=== PATIENT | male | born 1940 | race Caucasian/White ===

== ENCOUNTER 2019-05-06 11:27 | Inpatient (IN) | payer MEDICARE ==
[2019-05-06] MEDS ORDERED: Sodium Chloride 0.9% 10 ML Syringe FLUSH PRN (12:00)
--- NOTE | 2019-05-06 12:21 | EDM.PDOC ---
ED HPI GENERAL MEDICAL PROBLEM - General Chief Complaint: Gastrointestinal Problem Stated Complaint: [facility] Time Seen by Provider: 05/06/19 11:32 Source of Information: Reports: Patient, Family History Limitations: Reports: No Limitations - History of Present Illness INITIAL COMMENTS - FREE TEXT/NARRATIVE: Patient is a 78-year-old male who presents via [facility] with complaints of black emesis and incontinence of black stool this morning. Patient does have advanced dementia and lives with a caregiver in [place]. Patient's brother and auqsjp-mi-qpe are present in the ER and providing history on the patient as he is a poor historian. Patient nyozzb-tx-zvu states that the caregiver found him this morning in bed with dark colored emesis and incontinent stool. She states that last night the patient complained of "a stomachache ". Prior to this he was okay. A medication list is available for the 8 patient. He is on 81 mg daily of aspirin but no other blood thinners. Cesguf-hc-kco states that he has had a history of GI bleeds and have a bowel resection in the past. Patient's primary care is provided through [facility] at [facility]. The ymrkoy-mj-ydu did provide a copy of the patient's living will and advanced directives, however she does not have his past medical records with her. - Related Data Allergies Allergy/AdvReac Type Severity Reaction Status Date / Time No Known Allergies Allergy Verified 05/06/19 12:16 Home Meds: Home Meds Aspirin [Ecotrin EC] 81 mg PO DAILY 05/06/19 [History] Cholestyramine/Sucrose [Cholestyramine] 4 gm PO DAILY 05/06/19 [History] Donepezil HCl [Aricept] 10 mg PO QPM 05/06/19 [History] Insulin Glargine,Hum.Rec.Anlog [Toujeo Solostar] 20 units SUBCUT DAILY 05/06/19 [History] Levothyroxine [Synthroid] 50 mcg PO DAILY 05/06/19 [History] Midodrine 2.5 mg PO QPM 05/06/19 [History] Mirtazapine 15 mg PO QPM 05/06/19 [History] Multivit-Min/FA/Lycopen/Lutein [Centrum Silver Ultra Men's] 1 tab PO DAILY 05/06 [History] QUEtiapine [SEROquel] 100 mg PO QPM 05/06/19 [History] Turmeric Root Extract [Turmeric] 500 mg PO DAILY 05/06/19 [History] amLODIPine [Norvasc] 2.5 mg PO DAILY 05/06/19 [History] carBAMazepine [Carbamazepine] 100 mg PO BID 05/06/19 [History] carvediloL [Coreg] 12.5 mg PO BID 05/06/19 [History] ED ROS GENERAL - Review of Systems Review Of Systems: See Below Constitutional: Reports: No Symptoms HEENT: Reports: No Symptoms Respiratory: Reports: No Symptoms. Denies: Shortness of Breath Cardiovascular: Reports: No Symptoms. Denies: Chest Pain, Dyspnea on Exertion, Lightheadedness, Syncope Endocrine: Reports: No Symptoms GI/Abdominal: Reports: Hematemesis, Hematochezia, Stool Incontinence. Denies: Abdominal Pain : Reports: No Symptoms Musculoskeletal: Reports: No Symptoms Skin: Reports: No Symptoms Neurological: Reports: Confusion (at baseline). Denies: Dizziness, Syncope Psychiatric: Reports: No Symptoms Hematologic/Lymphatic: Reports: No Symptoms Immunologic: Reports: No Symptoms ED EXAM, GI/ABD - Physical Exam Exam: See Below Exam Limited By: Altered Mental Status (confusion r/t dementia) General Appearance: Alert, WD/WN, No Apparent Distress Head: Atraumatic, Normocephalic Respiratory/Chest: No Respiratory Distress, Lungs Clear, Normal Breath Sounds, No Accessory Muscle Use, Chest Non-Tender Cardiovascular: Normal Peripheral Pulses, Regular Rate, Rhythm, No Edema, No Murmur GI/Abdominal Exam: Soft, Non-Tender, No Distention, Abnormal Bowel Sounds ( hyperactive throughout). No: Distended, Guarding, Tender Rectal (Males) Exam: Black Stool, Heme + Stool Extremities: Other (Left great toe amputation well healed. pressure ulcer to tip of left 2nd toe and voral aspect of the left 3rd toe. No obvious signs of infection.) Neurological: Alert, Confused, Memory Loss Remote Events, Memory Loss Recent Events Psychiatric: Normal Affect, Normal Mood Skin Exam: Warm, Dry, Intact, Normal Color, No Rash Course - Vital Signs Last Recorded V/S: Last Vital Signs Temp 98.3 F 05/06/19 16:17 Pulse 71 05/06/19 16:17 Resp 13 05/06/19 16:17 BP 112/79 05/06/19 16:17 Pulse Ox 95 05/06/19 16:17 - Orders/Labs/Meds Orders: Active Orders 24 hr Category Date Time Status Chest 1V Frontal [CR] Stat Exams 05/06/19 13:30 Taken RED BLOOD CELLS LP [BBK] Stat Lab 05/06/19 11:55 Results TYPE AND SCREEN [BBK] Stat Lab 05/06/19 11:55 Results Sodium Chloride 0.9% [Normal Saline] 1,000 ml Med 05/06/19 12:30 Active IV ASDIRECTED Sodium Chloride 0.9% [Saline Flush] Med 05/06/19 12:00 Active 10 ml FLUSH ASDIRECTED PRN Peripheral IV Insertion Adult [OM.PC] Stat Oth 05/06/19 12:00 Ordered Transfuse Red Blood Cells [COMM] Stat Oth 05/06/19 12:22 Ordered Medication Orders Sodium Chloride (Normal Saline) 1,000 mls @ 150 mls/hr IV ASDIRECTED KASIE Last Admin: 05/06/19 12:38 Dose: 150 mls/hr Sodium Chloride (Saline Flush) 10 ml FLUSH ASDIRECTED PRN PRN Reason: Keep Vein Open Last Admin: 05/06/19 12:15 Dose: 10 ml Labs: Laboratory Tests 05/06/19 05/06/19 05/06/19 Range/Units 11:55 11:55 11:55 WBC 7.07 (4.23-9.07) K/mm3 RBC 2.26 L (4.63-6.08) M/mm3 Hgb 6.8 L* (13.7-17.5) gm/dl Hct 21.0 L (40.1-51.0) % MCV 92.9 H (79.0-92.2) fl MCH 30.1 (25.7-32.2) pg MCHC 32.4 (32.2-35.5) g/dl RDW Std Deviation 46.1 H (35.1-43.9) fL Plt Count 197 (163-337) K/mm3 MPV 9.2 L (9.4-12.3) fl Neut % (Auto) 90.8 H (34.0-67.9) % Lymph % (Auto) 4.5 L (21.8-53.1) % [place] % (Auto) 4.4 L (5.3-12.2) % Eos % (Auto) 0 L (0.8-7.0) Baso % (Auto) 0.0 L (0.1-1.2) % Neut # (Auto) 6.42 H (1.78-5.38) K/mm3 Lymph # (Auto) 0.32 L (1.32-3.57) K/mm3 [place] # (Auto) 0.31 (0.30-0.82) K/mm3 Eos # (Auto) 0.00 L (0.04-0.54) K/mm3 Baso # (Auto) 0.00 L (0.01-0.08) K/mm3 Manual Slide Review Abnormal smear Puncture Site ABG pH (7.35-7.45) ABG pCO2 (35.0-45.0) mmHg ABG pO2 (80.0-100.0) mmHg ABG HCO3 (22.0-26.0) meq/L ABG O2 Saturation (96.0-97.0) % ABG Base Excess (-2-2.0) Ming Test O2 Delivery Device Sodium 140 (136-145) mEq/L Potassium 4.8 (3.5-5.1) mEq/L Chloride 109 H (98-107) mEq/L Carbon Dioxide 16 L (21-32) mEq/L Anion Gap 19.8 H (5-15) BUN 90 H (7-18) mg/dL Creatinine 2.6 H (0.7-1.3) mg/dL Est Cr Clr Drug Dosing 22.29 mL/min Estimated GFR (MDRD) 24 (>60) mL/min BUN/Creatinine Ratio 34.6 H (14-18) Glucose 206 H (83-115) mg/dL Lactic Acid (0.4-2.0) mmol/L Calcium 7.8 L (8.5-10.1) mg/dL Magnesium (1.8-2.4) mg/dl Total Bilirubin 0.3 (0.2-1.0) mg/dL AST 46 H (15-37) U/L ALT 54 (16-63) U/L Alkaline Phosphatase 97 (46-116) U/L Creatine Kinase 410 H (39-308) U/L C-Reactive Protein 3.1 H* (<1.0) mg/dL Total Protein 5.7 L (6.4-8.2) g/dl Albumin 2.9 L (3.4-5.0) g/dl Globulin 2.8 gm/dL Albumin/Globulin Ratio 1.0 (1-2) Lipase 64 L (73-393) U/L Urine Color (Yellow) Urine Appearance (Clear) Urine pH (5.0-8.0) Ur Specific [place] (1.005-1.030) Urine Protein (Negative) Urine Glucose (UA) (Negative) Urine Ketones (Negative) Urine Occult Blood (Negative) Urine Nitrite (Negative) Urine Bilirubin (Negative) Urine Urobilinogen (0.2-1.0) Ur Leukocyte Esterase (Negative) Urine RBC (0-5) /hpf Urine WBC (0-5) /hpf Ur Epithelial Cells (0-5) /hpf Urine Bacteria (FEW) /hpf Hyaline Casts (0-5) /lpf Urine Mucus (FEW) /hpf Blood Type Gel Antibody Screen Crossmatch 05/06/19 05/06/19 05/06/19 Range/Units 11:55 11:55 12:10 WBC (4.23-9.07) K/mm3 RBC (4.63-6.08) M/mm3 Hgb (13.7-17.5) gm/dl Hct (40.1-51.0) % MCV (79.0-92.2) fl MCH (25.7-32.2) pg MCHC (32.2-35.5) g/dl RDW Std Deviation (35.1-43.9) fL Plt Count (163-337) K/mm3 MPV (9.4-12.3) fl Neut % (Auto) (34.0-67.9) % Lymph % (Auto) (21.8-53.1) % [place] % (Auto) (5.3-12.2) % Eos % (Auto) (0.8-7.0) Baso % (Auto) (0.1-1.2) % Neut # (Auto) (1.78-5.38) K/mm3 Lymph # (Auto) (1.32-3.57) K/mm3 [place] # (Auto) (0.30-0.82) K/mm3 Eos # (Auto) (0.04-0.54) K/mm3 Baso # (Auto) (0.01-0.08) K/mm3 Manual Slide Review Puncture Site ABG pH (7.35-7.45) ABG pCO2 (35.0-45.0) mmHg ABG pO2 (80.0-100.0) mmHg ABG HCO3 (22.0-26.0) meq/L ABG O2 Saturation (96.0-97.0) % ABG Base Excess (-2-2.0) Ming Test O2 Delivery Device Sodium (136-145) mEq/L Potassium (3.5-5.1) mEq/L Chloride (98-107) mEq/L Carbon Dioxide (21-32) mEq/L Anion Gap (5-15) BUN (7-18) mg/dL Creatinine (0.7-1.3) mg/dL Est Cr Clr Drug Dosing mL/min Estimated GFR (MDRD) (>60) mL/min BUN/Creatinine Ratio (14-18) Glucose (83-115) mg/dL Lactic Acid (0.4-2.0) mmol/L Calcium (8.5-10.1) mg/dL Magnesium 1.7 L (1.8-2.4) mg/dl Total Bilirubin (0.2-1.0) mg/dL AST (15-37) U/L ALT (16-63) U/L Alkaline Phosphatase (46-116) U/L Creatine Kinase (39-308) U/L C-Reactive Protein (<1.0) mg/dL Total Protein (6.4-8.2) g/dl Albumin (3.4-5.0) g/dl Globulin gm/dL Albumin/Globulin Ratio (1-2) Lipase (73-393) U/L Urine Color Yellow (Yellow) Urine Appearance Clear (Clear) Urine pH 5.5 (5.0-8.0) Ur Specific [place] 1.025 (1.005-1.030) Urine Protein Negative (Negative) Urine Glucose (UA) Negative (Negative) Urine Ketones Negative (Negative) Urine Occult Blood Negative (Negative) Urine Nitrite Negative (Negative) Urine Bilirubin Negative (Negative) Urine Urobilinogen 0.2 (0.2-1.0) Ur Leukocyte Esterase Negative (Negative) Urine RBC 0-5 (0-5) /hpf Urine WBC 0-5 (0-5) /hpf Ur Epithelial Cells 0-5 (0-5) /hpf Urine Bacteria Few (FEW) /hpf Hyaline Casts 0-5 (0-5) /lpf Urine Mucus Few (FEW) /hpf Blood Type A POSITIVE Gel Antibody Screen Negative Crossmatch See Detail 05/06/19 05/06/19 Range/Units 13:29 13:45 WBC (4.23-9.07) K/mm3 RBC (4.63-6.08) M/mm3 Hgb (13.7-17.5) gm/dl Hct (40.1-51.0) % MCV (79.0-92.2) fl MCH (25.7-32.2) pg MCHC (32.2-35.5) g/dl RDW Std Deviation (35.1-43.9) fL Plt Count (163-337) K/mm3 MPV (9.4-12.3) fl Neut % (Auto) (34.0-67.9) % Lymph % (Auto) (21.8-53.1) % [place] % (Auto) (5.3-12.2) % Eos % (Auto) (0.8-7.0) Baso % (Auto) (0.1-1.2) % Neut # (Auto) (1.78-5.38) K/mm3 Lymph # (Auto) (1.32-3.57) K/mm3 [place] # (Auto) (0.30-0.82) K/mm3 Eos # (Auto) (0.04-0.54) K/mm3 Baso # (Auto) (0.01-0.08) K/mm3 Manual Slide Review Puncture Site Lt radial ABG pH 7.32 L (7.35-7.45) ABG pCO2 23.6 L (35.0-45.0) mmHg ABG pO2 95.0 (80.0-100.0) mmHg ABG HCO3 11.7 L (22.0-26.0) meq/L ABG O2 Saturation 96.5 (96.0-97.0) % ABG Base Excess -13.2 L (-2-2.0) Ming Test Positive O2 Delivery Device Room air Sodium (136-145) mEq/L Potassium (3.5-5.1) mEq/L Chloride (98-107) mEq/L Carbon Dioxide (21-32) mEq/L Anion Gap (5-15) BUN (7-18) mg/dL Creatinine (0.7-1.3) mg/dL Est Cr Clr Drug Dosing mL/min Estimated GFR (MDRD) (>60) mL/min BUN/Creatinine Ratio (14-18) Glucose (83-115) mg/dL Lactic Acid 1.2 (0.4-2.0) mmol/L Calcium (8.5-10.1) mg/dL Magnesium (1.8-2.4) mg/dl Total Bilirubin (0.2-1.0) mg/dL AST (15-37) U/L ALT (16-63) U/L Alkaline Phosphatase (46-116) U/L Creatine Kinase (39-308) U/L C-Reactive Protein (<1.0) mg/dL Total Protein (6.4-8.2) g/dl Albumin (3.4-5.0) g/dl Globulin gm/dL Albumin/Globulin Ratio (1-2) Lipase (73-393) U/L Urine Color (Yellow) Urine Appearance (Clear) Urine pH (5.0-8.0) Ur Specific [place] (1.005-1.030) Urine Protein (Negative) Urine Glucose (UA) (Negative) Urine Ketones (Negative) Urine Occult Blood (Negative) Urine Nitrite (Negative) Urine Bilirubin (Negative) Urine Urobilinogen (0.2-1.0) Ur Leukocyte Esterase (Negative) Urine RBC (0-5) /hpf Urine WBC (0-5) /hpf Ur Epithelial Cells (0-5) /hpf Urine Bacteria (FEW) /hpf Hyaline Casts (0-5) /lpf Urine Mucus (FEW) /hpf Blood Type Gel Antibody Screen Crossmatch Meds: Medications Generic Name Dose Route Start Last Admin Trade Name Freq PRN Reason Stop Dose Admin Sodium Chloride 1,000 mls @ 150 mls/hr 05/06/19 12:30 05/06/19 12:38 Normal Saline IV 150 mls/hr ASDIRECTED KASIE Administration Sodium Chloride 10 ml 05/06/19 12:00 05/06/19 12:15 Saline Flush FLUSH 10 ml ASDIRECTED PRN Administration Keep Vein Open Discontinued Medications Generic Name Dose Route Start Last Admin Trade Name Suki PRN Reason Stop Dose Admin Ondansetron HCl 4 mg 05/06/19 12:23 05/06/19 12:38 Zofran IVPUSH 05/06/19 12:24 4 mg ONETIME ONE Administration Pantoprazole Sodium 80 mg 05/06/19 12:23 05/06/19 12:38 Protonix Iv IVPUSH 05/06/19 12:24 80 mg BOLUS ONE Administration - Re-Assessments/Exams Free Text/Narrative Re-Assessment/Exam: Patient is a 78-year-old male who presents with complaints of black emesis and incontinence of dark stool this morning. Patient is never been to this facility in the past so we do not have complete medical records for him. His brother, Edmundo, and his are present in the ER. Edmundo is the patient's designated medical power of finance attorney. The [id number] does state the patient has a history of GI bleeds in the past. We have contacted [facility] services and [facility] to request the patient's past medical records. On exam the patient is alert and responds to questioning, however is confused at baseline. He does have spots of dried dark emesis on his face and also has dried dark stool on his buttocks. Rectal exam was performed and no cold stool was obtained. This was grossly positive. Ordered a CBC CMP and type and screen for the patient. We'll start IV fluids of NS at 15 ml/hr and administer Zofran 4 mg IV as well as Protonix 80 mg IV push bolus. 05/06/19 12:34 Laboratory results thus far show a hemoglobin of 6.8. I did discuss with the patient and the power of finance attorney the need for a blood transfusion. They did consent to this. Have ordered 2 units packed RBCs to be transfused. I will contact the hospitalist, Dr. Mccarthy, to discuss admission to the hospital. 05/06/19 13:31 Dr. Mccarthy here to see pt. She request that I add a lactic acid, ABG, and a CXR. Pt will be admitted to [facility] in. Departure - Departure Time of Disposition: 13:30 Disposition: Admitted As Inpatient 65 Condition: Fair Clinical Impression: Gastrointestinal bleeding Qualifiers: GI bleed type/associated pathology: unspecified gastrointestinal hemorrhage type Qualified Code(s): K92.2 - Gastrointestinal hemorrhage, unspecified - Discharge Information *PRESCRIPTION DRUG MONITORING PROGRAM REVIEWED*: No *COPY OF PRESCRIPTION DRUG MONITORING REPORT IN PATIENT KAITY: No Sepsis Event Note - Evaluation Sepsis Screening Result: No Definite Risk - Focused Exam Vital Signs: Vital Signs Temp Temp Pulse Resp BP Pulse Ox 05/06/19 15:09 98.3 F 79 13 112/79 05/06/19 14:54 98.5 F 71 13 115/56 L 05/06/19 14:40 98.0 F 69 13 103/59 L 05/06/19 11:56 97.5 F 75 18 121/55 L 96 Date Exam was Performed: 05/06/19 Time Exam was Performed: 16:27 - My Orders Last 24 Hours: My Active Orders 05/06/19 11:55 RED BLOOD CELLS LP [BBK] Stat TYPE AND SCREEN [BBK] Stat 05/06/19 12:00 Sodium Chloride 0.9% [Saline Flush] 10 ml FLUSH ASDIRECTED PRN Peripheral IV Insertion Adult [OM.PC] Stat 05/06/19 12:22 Transfuse Red Blood Cells [COMM] Stat 05/06/19 12:30 Sodium Chloride 0.9% [Normal Saline] 1,000 ml IV ASDIRECTED 05/06/19 13:30 Chest 1V Frontal [CR] Stat - Assessment/Plan Last 24 Hours: My Active Orders 05/06/19 11:55 RED BLOOD CELLS LP [BBK] Stat TYPE AND SCREEN [BBK] Stat 05/06/19 12:00 Sodium Chloride 0.9% [Saline Flush] 10 ml FLUSH ASDIRECTED PRN Peripheral IV Insertion Adult [OM.PC] Stat 05/06/19 12:22 Transfuse Red Blood Cells [COMM] Stat 05/06/19 12:30 Sodium Chloride 0.9% [Normal Saline] 1,000 ml IV ASDIRECTED 05/06/19 13:30 Chest 1V Frontal [CR] Stat
[2019-05-06] MEDS ORDERED: Ondansetron 4 MG/2 ML SDV IVPUSH ONE (12:23)
[2019-05-06] MEDS ORDERED: Pantoprazole 40 MG Vial IVPUSH ONE (12:23)
[2019-05-06] MEDS: Sodium Chloride 0.9% 1,000 ML IV SCH ×2 (12:38→17:54)
--- NOTE | 2019-05-06 18:05 | PCM.HP.2 ---
H&P History of Present Illness - General Date of Service: 05/06/19 Admit Problem/Dx: Admission Diagnosis/Problem Admission Diagnosis/Problem Gastrointestinal hemorrhage - History of Present Illness Initial Comments - Free Text/Narative: Patient is a 78-year-old male who [facility] with complaints of black emesis and incontinence of black stool this morning. Patient does have advanced dementia and lives with a caregiver in [place]. Patient's brother and rikurb-sy-eum are present in the ER and providing history on the patient as he is a poor historian. Patient rhbdxs-is-lgz states that the caregiver found him this morning in bed with dark colored emesis and incontinent stool. She states that last night the patient complained of "a stomachache ". Prior to this he was okay. A medication list is available for the 8 patient. He is on 81 mg daily of aspirin but no other blood thinners. Klagwz-wn-mdh states that he has had a history of GI bleeds and have a bowel resection in the past. Patient's primary care is provided through [facility] at [facility]. The hvnvhr-to-lwi did provide a copy of the patient's living will and advanced directives, however she does not have his past medical records with her. - Related Data Allergies/Adverse Reactions: Allergies Allergy/AdvReac Type Severity Reaction Status Date / Time No Known Allergies Allergy Verified 05/06/19 12:16 Home Medications: Home Meds Aspirin [Ecotrin EC] 81 mg PO DAILY 05/06/19 [History] Cholestyramine/Sucrose [Cholestyramine] 4 gm PO DAILY 05/06/19 [History] Donepezil HCl [Aricept] 10 mg PO QPM 05/06/19 [History] Insulin Glargine,Hum.Rec.Anlog [[place] Solostar] 20 units SUBCUT DAILY 05/06/19 [History] Levothyroxine [Synthroid] 50 mcg PO DAILY 05/06/19 [History] Midodrine 2.5 mg PO QPM 05/06/19 [History] Mirtazapine 15 mg PO QPM 05/06/19 [History] Multivit-Min/FA/Lycopen/Lutein [Centrum Silver Ultra Men's] 1 tab PO DAILY 05/06 [History] QUEtiapine [SEROquel] 100 mg PO QPM 05/06/19 [History] Turmeric Root Extract [Turmeric] 500 mg PO DAILY 05/06/19 [History] amLODIPine [Norvasc] 5 mg PO DAILY 05/06/19 [History] carBAMazepine [Carbamazepine] 200 mg PO BID 05/06/19 [History] carvediloL [Coreg] 12.5 mg PO BID 05/06/19 [History] Past Medical History HEENT History: Reports: Impaired Vision Cardiovascular History: Reports: Heart Failure, High Cholesterol, Other (See Below) Other Cardiovascular History: low blood pressure Gastrointestinal History: Reports: GI Bleed Musculoskeletal History: Reports: Amputation Other Musculoskeletal History: Ribs couple weeks ago, L big toe amputated Neurological History: Reports: Other (See Below) Other Neuro History: dementia Psychiatric History: Reports: Dementia Endocrine/Metabolic History: Reports: Diabetes, Type II, Hypothyroidism - Past Surgical History HEENT Surgical History: Reports: Cataract Surgery GI Surgical History: Reports: Colonoscopy Other GI Surgeries/Procedures: bowel resection- 2009 Social & Family History - Family History Family Medical History: Noncontributory - Tobacco Use Smoking Status *Q: Never Smoker - Caffeine Use Caffeine Use: Reports: None - Recreational Drug Use Recreational Drug Use: No H&P Review of Systems - Review of Systems: Review Of Systems: Unable To Obtain Reason Not Obtained: AMS Exam - Exam Exam: See Below - Vital Signs Vital Signs: Last Vital Signs Temp 97.8 F 05/06/19 18:01 Pulse 67 05/06/19 18:01 Resp 12 05/06/19 18:01 BP 127/72 05/06/19 18:01 Pulse Ox 95 05/06/19 16:17 Weight: 72.575 kg - Exam Physical Exam Comments:: Exam Limited By: Altered Mental Status (confusion r/t dementia) General Appearance: Alert, WD/WN, No Apparent Distress Head: Atraumatic, Normocephalic Respiratory/Chest: No Respiratory Distress, Lungs Clear, Normal Breath Sounds, No Accessory Muscle Use, Chest Non-Tender Cardiovascular: Normal Peripheral Pulses, Regular Rate, Rhythm, No Edema, No Murmur GI/Abdominal Exam: Soft, Non-Tender, No Distention, Abnormal Bowel Sounds ( hyperactive throughout). No: Distended, Guarding, Tender Rectal (Males) Exam: Black Stool, Heme + Stool Extremities: Other (Left great toe amputation well healed. pressure ulcer to tip of left 2nd toe and voral aspect of the left 3rd toe. No obvious signs of infection.) Neurological: Alert, Confused, Memory Loss Remote Events, Memory Loss Recent Events Psychiatric: Normal Affect, Normal Mood Skin Exam: Warm, Dry, Intact, Normal Color, No Rash - Patient Data Result Diagrams: 05/06/19 21:25 05/06/19 11:55 Sepsis Event Note - Evaluation Sepsis Screening Result: No Definite Risk - Focused Exam Vital Signs: Vital Signs Temp Temp Pulse Resp BP Pulse Ox 05/06/19 18:01 97.8 F 67 12 127/72 05/06/19 17:45 97.8 F 67 12 127/72 05/06/19 16:17 98.3 F 71 13 112/79 95 05/06/19 15:09 98.3 F 79 13 112/79 05/06/19 14:54 98.5 F 71 13 115/56 L 05/06/19 14:40 98.0 F 69 13 103/59 L 05/06/19 11:56 97.5 F 75 18 121/55 L 96 Date Exam was Performed: 05/06/19 Time Exam was Performed: 22:46 - Problem List (1) Gastrointestinal bleeding SNOMED Code(s): 96869132 ICD Code: K92.2 - GASTROINTESTINAL HEMORRHAGE, UNSPECIFIED Status: Acute Current Visit: Yes Qualifiers: GI bleed type/associated pathology: unspecified gastrointestinal hemorrhage type Qualified Code(s): K92.2 - Gastrointestinal hemorrhage, unspecified (2) Chronic orthostatic hypotension SNOMED Code(s): 34123338 ICD Code: I95.1 - ORTHOSTATIC HYPOTENSION Status: Acute Current Visit: Yes (3) COPD (chronic obstructive pulmonary disease) SNOMED Code(s): 34838397 ICD Code: J44.9 - CHRONIC OBSTRUCTIVE PULMONARY DISEASE, UNSPECIFIED Status : Acute Current Visit: Yes (4) Dementia SNOMED Code(s): 55412184 ICD Code: F03.90 - UNSPECIFIED DEMENTIA WITHOUT BEHAVIORAL DISTURBANCE Status: Acute Current Visit: Yes (5) Former smoker SNOMED Code(s): 9593342 ICD Code: Z87.891 - PERSONAL HISTORY OF NICOTINE DEPENDENCE Status: Acute Current Visit: Yes (6) Hypertension SNOMED Code(s): 96051648 ICD Code: I10 - ESSENTIAL (PRIMARY) HYPERTENSION Status: Acute Current Visit: Yes (7) Hypothyroidism SNOMED Code(s): 33814587 ICD Code: E03.9 - HYPOTHYROIDISM, UNSPECIFIED Status: Acute Current Visit : Yes (8) MRSA colonization SNOMED Code(s): 361506233 ICD Code: Z22.322 - CARRIER OR SUSPECTED CARRIER OF METHICILLIN RESIS STAPH Status: Acute Current Visit: Yes (9) Mitral regurgitation SNOMED Code(s): 97359891 ICD Code: I34.0 - NONRHEUMATIC MITRAL (VALVE) INSUFFICIENCY Status: Acute Current Visit: Yes (10) Peripheral neuropathy SNOMED Code(s): 891009823 ICD Code: G62.9 - POLYNEUROPATHY, UNSPECIFIED Status: Acute Current Visit : Yes (11) Diabetes mellitus SNOMED Code(s): 76648318 ICD Code: E11.9 - TYPE 2 DIABETES MELLITUS WITHOUT COMPLICATIONS Status: Acute Current Visit: Yes Problem List Initiated/Reviewed/Updated: Yes Assessment/Plan Comment:: Gastrointestinal bleeding Previous episode 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 bowel resection Found with black emesis and BM in the AM by provider Hb 6.8 on admission 2 melena episodes in ER and 1 in floor PLAN - Transfuse 2u PRBC - Trend Hb q4 in pediatric tubes - Monitor hemodynamics - LR at 50ml/hr - Pantoprazole 40mh IV Q12h - NPO for now except for ice chips and meds - No pharmacologic DVT prophylaxis Chronic orthostatic hypotension BP on admission stable Home midodrine Unclear why he is on amlodipine as well PLAN - Hold amlodipine and discontinue - Continue home midodrine - Ambulation with assistance - Bed alarm Diabetes mellitus, unknown HbA1c Peripheral neuropathy Insulin dependent at home Unknown home trend HbA1c reported less than 7, if so patient is at goal and does not need insulin, will repeat during admission for discharge recommendations PLAN - Repeat HbA1c - Accuchecks q6h while npo - Hypoglycemia protocol COPD (chronic obstructive pulmonary disease) Former smoker Smoked for 44 years, quit 08/2017 No acute issues PLAN - Monitor oxygenation during admission Hypothyroidism No acute issues PLAN - Continue home medications Dementia, unknown FAST score Home donepezil, seroquel and carbamazepine PLAN - Continue home meds - Delirium precautions - Let me sleep protocol PROPHYLAXIS DVT- TEDs, pharmacologic contraindicated due to active bleed GI- Pantoprazole 40mg IV Q12H CODE STATUS: DNR/DNI DISPOSITION: Patient will be admitted to medical floor for transfusion and monitorization. If Hb continues to drop will consult surgery for endoscopic procedure. Lives at home and has a live-in provider. - Mortality Measure Prognosis:: Good (all cause 1 year mortality 34% as per eprognosis score)
[2019-05-06] MEDS ORDERED: Ondansetron 4 MG Tab.DIS PO PRN (21:05)
[2019-05-06] MEDS ORDERED: Ondansetron 4 MG/2 ML SDV IV PRN (21:05)
[2019-05-06] MEDS ORDERED: Lactated Ringers 1,000 ML IV SCH ×2 (21:15)
[2019-05-06] MEDS: Mirtazapine 15 MG Tab PO SCH (22:41)
[2019-05-06] MEDS: Carvedilol 3.125 MG Tab PO SCH (22:41)
[2019-05-06] MEDS: QUEtiapine 100 MG Tab PO SCH (22:41)
[2019-05-07] MEDS: Carvedilol 3.125 MG Tab PO SCH ×2 (06:58→17:11)
[2019-05-07] MEDS: Pantoprazole 40 MG Vial IV SCH ×2 (08:02→20:58)
[2019-05-07] MEDS: carBAMazepine 200 MG Tab PO SCH ×2 (08:02→20:58)
[2019-05-07] MEDS ORDERED: Carvedilol 12.5 MG Tab PO SCH (09:00)
[2019-05-07] MEDS ORDERED: Magnesium Sulfate/Water 2 GM in Premix Bag 1 BAG IV ONE (10:30)
--- NOTE | 2019-05-07 12:58 | PCM.PN ---
- General Info Date of Service: 05/07/19 Subjective Update: Tolerating diet 1 dark BM Slept ok No pain or other complaints - Patient Data Vitals - Most Recent: Last Vital Signs Temp 97.9 F 05/07/19 05:30 Pulse 82 05/07/19 06:58 Resp 16 05/07/19 05:30 BP 108/68 05/07/19 06:58 Pulse Ox 99 05/07/19 05:30 Weight - Most Recent: 72.575 kg - Exam General: Alert, Oriented, Cooperative, No Acute Distress HEENT: Pupils Equal, Pupils Reactive, EOMI, Mucous Membr. Moist/[place] Neck: Supple, Trachea Midline, No JVD, No Thyromegaly, +2 Carotid Pulse wo Bruit. No: Lymphadenopathy Lungs: Clear to Auscultation, Normal Respiratory Effort, Crackles. No: Rales, Rhonchi, Wheezing Cardiovascular: Regular Rate, Regular Rhythm, No Murmurs GI/Abdominal Exam: Normal Bowel Sounds, Soft, Non-Tender, No Organomegaly Back Exam: Normal Inspection. No: CVA Tenderness (L), CVA Tenderness (R) Extremities: Normal Inspection, Normal Range of Motion, Normal Capillary Refill Skin: Warm Neurological: No New Focal Deficit Psy/Mental Status: Alert Sepsis Event Note - Evaluation Sepsis Screening Result: No Definite Risk - Focused Exam Vital Signs: Vital Signs Temp Temp Pulse Pulse Resp BP BP 05/07/19 06:58 82 108/68 05/07/19 05:30 97.9 F 82 16 108/68 05/07/19 01:11 98.6 F 83 14 96/63 Pulse Ox 05/07/19 06:58 05/07/19 05:30 99 05/07/19 01:11 97 Date Exam was Performed: 05/08/19 Time Exam was Performed: 09:01 - Problem List & Annotations (1) Gastrointestinal bleeding SNOMED Code(s): 83710510 Code(s): K92.2 - GASTROINTESTINAL HEMORRHAGE, UNSPECIFIED Status: Acute Current Visit: Yes Qualifiers: GI bleed type/associated pathology: unspecified gastrointestinal hemorrhage type Qualified Code(s): K92.2 - Gastrointestinal hemorrhage, unspecified (2) Chronic orthostatic hypotension SNOMED Code(s): 05908926 Code(s): I95.1 - ORTHOSTATIC HYPOTENSION Status: Acute Current Visit: Yes (3) COPD (chronic obstructive pulmonary disease) SNOMED Code(s): 47239430 Code(s): J44.9 - CHRONIC OBSTRUCTIVE PULMONARY DISEASE, UNSPECIFIED Status : Acute Current Visit: Yes (4) Dementia SNOMED Code(s): 65566915 Code(s): F03.90 - UNSPECIFIED DEMENTIA WITHOUT BEHAVIORAL DISTURBANCE Status: Acute Current Visit: Yes (5) Former smoker SNOMED Code(s): 1323215 Code(s): Z87.891 - PERSONAL HISTORY OF NICOTINE DEPENDENCE Status: Acute Current Visit: Yes (6) Hypertension SNOMED Code(s): 64765121 Code(s): I10 - ESSENTIAL (PRIMARY) HYPERTENSION Status: Acute Current Visit: Yes (7) Hypothyroidism SNOMED Code(s): 19341849 Code(s): E03.9 - HYPOTHYROIDISM, UNSPECIFIED Status: Acute Current Visit : Yes (8) MRSA colonization SNOMED Code(s): 781376191 Code(s): Z22.322 - CARRIER OR SUSPECTED CARRIER OF METHICILLIN RESIS STAPH Status: Acute Current Visit: Yes (9) Mitral regurgitation SNOMED Code(s): 41513126 Code(s): I34.0 - NONRHEUMATIC MITRAL (VALVE) INSUFFICIENCY Status: Acute Current Visit: Yes (10) Peripheral neuropathy SNOMED Code(s): 352517396 Code(s): G62.9 - POLYNEUROPATHY, UNSPECIFIED Status: Acute Current Visit : Yes (11) Diabetes mellitus SNOMED Code(s): 78932331 Code(s): E11.9 - TYPE 2 DIABETES MELLITUS WITHOUT COMPLICATIONS Status: Acute Current Visit: Yes - Problem List Review Problem List Initiated/Reviewed/Updated: Yes - Plan Plan:: Gastrointestinal bleeding Previous episode 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 bowel resection Found with black emesis and BM in the AM by provider Hb 6.8 on admission-->2 melena episodes in ER and 1 in floor--> transfused 2u PRBC-->Repeat Hb stable PLAN - Monitor hemodynamics - Discontinue LR - Pantoprazole 40mh IV Q12h - No pharmacologic DVT prophylaxis Chronic orthostatic hypotension BP on admission stable Home midodrine Unclear why he is on amlodipine as well PLAN - Hold amlodipine and discontinue - Continue home midodrine - Ambulation with assistance - Bed alarm Diabetes mellitus, unknown HbA1c Peripheral neuropathy Insulin dependent at home Unknown home trend HbA1c reported less than 7, if so patient is at goal and does not need insulin, will repeat during admission for discharge recommendations PLAN - Repeat HbA1c - Accuchecks q6h while npo - Hypoglycemia protocol COPD (chronic obstructive pulmonary disease) Former smoker Smoked for 44 years, quit 08/2017 No acute issues PLAN - Monitor oxygenation during admission Hypothyroidism No acute issues PLAN - Continue home medications Dementia, unknown FAST score Home donepezil, seroquel and carbamazepine PLAN - Continue home meds - Delirium precautions - Let me sleep protocol PROPHYLAXIS DVT- TEDs, pharmacologic contraindicated due to active bleed GI- Pantoprazole 40mg IV Q12H CODE STATUS: DNR/DNI DISPOSITION: Admitted to medical floor for hemodynamic monitorization, transfused 2u PRBC and Hb stable after transfusion./ Still having dark and tarry stools but Hb is stable. No need for endoscopic procedure at this time, will need one as an outpatient. Lives at home and has a live-in provider.
[2019-05-07] MEDS: QUEtiapine 100 MG Tab PO SCH (17:11)
[2019-05-07] MEDS ORDERED: QUEtiapine 100 MG Tab PO SCH (18:00)
[2019-05-07] MEDS ORDERED: Midodrine 5 MG Tab PO SCH (18:00)
[2019-05-07] MEDS: Mirtazapine 15 MG Tab PO SCH (20:58)
[2019-05-07] MEDS ORDERED: Mirtazapine 15 MG Tab PO SCH (21:00)
[2019-05-08] MEDS: Carvedilol 3.125 MG Tab PO SCH (07:04)
[2019-05-08] MEDS: carBAMazepine 200 MG Tab PO SCH (08:33)
[2019-05-08] MEDS: Pantoprazole 40 MG Vial IV SCH (08:33)
[2019-05-08 10:36] LABS: HEMOGLOBIN A1C 5.9 % (4.50-6.20)
--- NOTE | 2019-05-08 10:50 | CR ---
Chest: Portable view of the chest was obtained. Comparison: No prior chest imaging is available. Heart size is felt to be at the upper limits of normal. Tortuous thoracic aorta is seen. Lungs are clear with no acute parenchymal change. Bony structures are grossly intact. Impression: 1. Nothing acute is appreciated on portable chest x-ray. Diagnostic code #2 This report was dictated in [place] Standard Time
--- NOTE | 2019-05-08 17:22 | PCM.DCSUM1 ---
Discharge Summary - Hospital Course HPI Initial Comments: Patient is a 78-year-old male who presents via [facility] with complaints of black emesis and incontinence of black stool this morning. Patient does have advanced dementia and lives with a caregiver in [place]. Patient's brother and [id number] are present in the ER and providing history on the patient as he is a poor historian. Patient [id number] states that the caregiver found him this morning in bed with dark colored emesis and incontinent stool. She states that last night the patient complained of "a stomachache ". Prior to this he was okay. A medication list is available for the 8 patient. He is on 81 mg daily of aspirin but no other blood thinners. [id number] states that he has had a history of GI bleeds and have a bowel resection in the past. Patient's primary care is provided through [facility]. The [id number] did provide a copy of the patient's living will and advanced directives, however she does not have his past medical records with her. - Discharge Data Discharge Date: 05/08/19 Discharge Disposition: Home, Self-Care 01 Condition: Good - Referral to Home Health Primary Care Physician: Xochilt Steele PA-C - Discharge Diagnosis/Problem(s) (1) Gastrointestinal bleeding SNOMED Code(s): 44599041 ICD Code: K92.2 - GASTROINTESTINAL HEMORRHAGE, UNSPECIFIED Status: Acute Qualifiers: GI bleed type/associated pathology: unspecified gastrointestinal hemorrhage type Qualified Code(s): K92.2 - Gastrointestinal hemorrhage, unspecified (2) Chronic orthostatic hypotension SNOMED Code(s): 47571081 ICD Code: I95.1 - ORTHOSTATIC HYPOTENSION Status: Acute (3) COPD (chronic obstructive pulmonary disease) SNOMED Code(s): 65993007 ICD Code: J44.9 - CHRONIC OBSTRUCTIVE PULMONARY DISEASE, UNSPECIFIED Status : Acute (4) Dementia SNOMED Code(s): 38806906 ICD Code: F03.90 - UNSPECIFIED DEMENTIA WITHOUT BEHAVIORAL DISTURBANCE Status: Acute (5) Former smoker SNOMED Code(s): 6739253 ICD Code: Z87.891 - PERSONAL HISTORY OF NICOTINE DEPENDENCE Status: Acute (6) Hypertension SNOMED Code(s): 47068457 ICD Code: I10 - ESSENTIAL (PRIMARY) HYPERTENSION Status: Acute (7) Hypothyroidism SNOMED Code(s): 45749324 ICD Code: E03.9 - HYPOTHYROIDISM, UNSPECIFIED Status: Acute (8) MRSA colonization SNOMED Code(s): 731375932 ICD Code: Z22.322 - CARRIER OR SUSPECTED CARRIER OF METHICILLIN RESIS STAPH Status: Acute (9) Mitral regurgitation SNOMED Code(s): 12414275 ICD Code: I34.0 - NONRHEUMATIC MITRAL (VALVE) INSUFFICIENCY Status: Acute (10) Peripheral neuropathy SNOMED Code(s): 951227130 ICD Code: G62.9 - POLYNEUROPATHY, UNSPECIFIED Status: Acute (11) Diabetes mellitus SNOMED Code(s): 55795123 ICD Code: E11.9 - TYPE 2 DIABETES MELLITUS WITHOUT COMPLICATIONS Status: Acute - Patient Summary/Data Consults: Consultations 05/08/19 11:16 Consult to Occupational Therapy [OT Evaluation and Treatment] [CONS] Routine PT Evaluation and Treatment [CONS] Routine Hospital Course: Gastrointestinal bleeding Previous episode 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 bowel resection Found with black emesis and BM in the AM by provider Hb 6.8 on admission-->2 melena episodes in ER and 1 in floor--> transfused 2u PRBC-->Repeat Hb stable x3 Discharged on Pantoprazole to follow up with GI specialist Chronic orthostatic hypotension BP on admission stable Discontinued BP meds and discharged him only on midodrine and low dose carvedilol - Patient Instructions Diet: Usual Diet as Tolerated Activity: As Tolerated - Discharge Plan *PRESCRIPTION DRUG MONITORING PROGRAM REVIEWED*: No *COPY OF PRESCRIPTION DRUG MONITORING REPORT IN PATIENT KAITY: No Prescriptions/Med Rec: carvediloL [Coreg] 3.125 mg PO DAILY #30 tablet Pantoprazole Sodium 40 mg PO BID #60 tablet. Home Medications: Home Meds Aspirin [Ecotrin EC] 81 mg PO DAILY 05/06/19 [History] Cholestyramine/Sucrose [Cholestyramine] 4 gm PO DAILY 05/06/19 [History] Donepezil HCl [Aricept] 10 mg PO QPM 05/06/19 [History] Levothyroxine [Synthroid] 50 mcg PO DAILY 05/06/19 [History] Midodrine 2.5 mg PO QPM 05/06/19 [History] Mirtazapine 15 mg PO QPM 05/06/19 [History] Multivit-Min/FA/Lycopen/Lutein [Centrum Silver Ultra Men's] 1 tab PO DAILY 05/06 [History] QUEtiapine [SEROquel] 100 mg PO QPM 05/06/19 [History] Turmeric Root Extract [Turmeric] 500 mg PO DAILY 05/06/19 [History] carBAMazepine [Carbamazepine] 200 mg PO BID 05/06/19 [History] Pantoprazole Sodium 40 mg PO BID #60 tablet. 05/08/19 [Rx] carvediloL [Coreg] 3.125 mg PO DAILY #30 tablet 05/08/19 [Rx] Patient Handouts: Gastrointestinal Bleeding, [id number] Referrals: Xochilt Steele PA-C [Primary Care Provider] - 05/12/19 9:00 am (Please follow up with Xochilt Steele PA-C on May 12 at 9:00 am at [facility]. ) - Discharge Summary/Plan Comment DC Time >30 min.: Yes - General Info Date of Service: 05/08/19 Subjective Update: Slept ok Tolerating diet Ambulating to and from restroom - Patient Data Vitals - Most Recent: Last Vital Signs Temp 97.3 F 05/08/19 11:46 Pulse 61 05/08/19 11:47 Resp 20 05/08/19 11:46 BP 142/73 H 05/08/19 11:46 Pulse Ox 100 05/08/19 11:47 Weight - Most Recent: 72.575 kg I&O - Last 24 hours: Intake & Output 05/08/19 05/08/19 05/08/19 06:59 14:59 22:59 Intake Total 450 600 Output Total 975 Balance -525 600 Lab Results - Last 24 hrs: Laboratory Results - last 24 hr 05/07/19 05/07/19 05/08/19 Range/Units 16:54 20:59 05:15 WBC 4.59 (4.23-9.07) K/mm3 RBC 2.62 L (4.63-6.08) M/mm3 Hgb 7.9 L (13.7-17.5) gm/dl Hct 24.5 L (40.1-51.0) % MCV 93.5 H (79.0-92.2) fl MCH 30.2 (25.7-32.2) pg MCHC 32.2 (32.2-35.5) g/dl RDW Std Deviation 50.3 H (35.1-43.9) fL Plt Count 141 L (163-337) K/mm3 MPV 9.1 L (9.4-12.3) fl Sodium (136-145) mEq/L Potassium (3.5-5.1) mEq/L Chloride (98-107) mEq/L Carbon Dioxide (21-32) mEq/L Anion Gap (5-15) BUN (7-18) mg/dL Creatinine (0.7-1.3) mg/dL Est Cr Clr Drug Dosing mL/min Estimated GFR (MDRD) (>60) mL/min BUN/Creatinine Ratio (14-18) Glucose (83-115) mg/dL POC Glucose 169 H 147 H (83-110) mg/dL Hemoglobin A1c (4.50-6.20) % Calcium (8.5-10.1) mg/dL Magnesium (1.8-2.4) mg/dl 05/08/19 05/08/19 05/08/19 Range/Units 05:15 05:15 07:12 WBC (4.23-9.07) K/mm3 RBC (4.63-6.08) M/mm3 Hgb (13.7-17.5) gm/dl Hct (40.1-51.0) % MCV (79.0-92.2) fl MCH (25.7-32.2) pg MCHC (32.2-35.5) g/dl RDW Std Deviation (35.1-43.9) fL Plt Count (163-337) K/mm3 MPV (9.4-12.3) fl Sodium 142 (136-145) mEq/L Potassium 3.6 (3.5-5.1) mEq/L Chloride 112 H (98-107) mEq/L Carbon Dioxide 20 L (21-32) mEq/L Anion Gap 13.6 (5-15) BUN 45 H D (7-18) mg/dL Creatinine 1.6 H (0.7-1.3) mg/dL Est Cr Clr Drug Dosing 36.22 mL/min Estimated GFR (MDRD) 42 (>60) mL/min BUN/Creatinine Ratio 28.1 H (14-18) Glucose 159 H (83-115) mg/dL POC Glucose 172 H (83-110) mg/dL Hemoglobin A1c 5.90 (4.50-6.20) % Calcium 7.7 L (8.5-10.1) mg/dL Magnesium 1.9 (1.8-2.4) mg/dl 05/08/19 Range/Units 10:30 WBC (4.23-9.07) K/mm3 RBC (4.63-6.08) M/mm3 Hgb 8.9 L (13.7-17.5) gm/dl Hct 27.5 L (40.1-51.0) % MCV (79.0-92.2) fl MCH (25.7-32.2) pg MCHC (32.2-35.5) g/dl RDW Std Deviation (35.1-43.9) fL Plt Count (163-337) K/mm3 MPV (9.4-12.3) fl Sodium (136-145) mEq/L Potassium (3.5-5.1) mEq/L Chloride (98-107) mEq/L Carbon Dioxide (21-32) mEq/L Anion Gap (5-15) BUN (7-18) mg/dL Creatinine (0.7-1.3) mg/dL Est Cr Clr Drug Dosing mL/min Estimated GFR (MDRD) (>60) mL/min BUN/Creatinine Ratio (14-18) Glucose (83-115) mg/dL POC Glucose (83-110) mg/dL Hemoglobin A1c (4.50-6.20) % Calcium (8.5-10.1) mg/dL Magnesium (1.8-2.4) mg/dl SANDRA Results - Last 24 hrs: Microbiology 05/08/19 09:09 Helicobacter pylori Antigen - Final Stool / Feces NEGATIVE H. PYLORI AG REFERENCE RANGE: NEGATIVE Med Orders - Current: Current Medications Carbamazepine (Tegretol Tab) 200 mg PO BID [facility] Last Admin: 05/08/19 08:33 Dose: 200 mg Carvedilol (Coreg) 3.125 mg PO BIDMEALS [facility] Last Admin: 05/08/19 07:04 Dose: 3.125 mg Midodrine (Midodrine) 2.5 mg PO QPM [facility] Last Admin: 05/07/19 17:10 Dose: 2.5 mg Mirtazapine (Remeron) 15 mg PO BEDTIME [facility] Last Admin: 05/07/19 20:58 Dose: 15 mg Ondansetron HCl (Zofran Odt) 4 mg PO Q6H PRN PRN Reason: nausea, able to take PO Ondansetron HCl (Zofran) 4 mg IV Q6H PRN PRN Reason: Nausea/Vomiting Pantoprazole Sodium (Protonix Iv) 40 mg IV Q12HR [facility] Last Admin: 05/08/19 08:33 Dose: 40 mg Quetiapine Fumarate (Seroquel) 100 mg PO QPM [facility] Last Admin: 05/07/19 17:11 Dose: 100 mg Sodium Chloride (Saline Flush) 10 ml FLUSH ASDIRECTED PRN PRN Reason: Keep Vein Open Last Admin: 05/06/19 12:15 Dose: 10 ml Discontinued Medications Carvedilol (Coreg) 3.25 mg PO BID [facility] Sodium Chloride (Normal Saline) 1,000 mls @ 150 mls/hr IV ASDIRECTED [facility] Last Admin: 05/06/19 17:54 Dose: 150 mls/hr Lactated Ringer's (Ringers, Lactated) 1,000 mls @ 50 mls/hr IV ASDIRECTED [facility] Last Admin: 05/06/19 21:32 Dose: 50 mls/hr Magnesium Sulfate 2 gm/ Premix 50 mls @ 25 mls/hr IV ONETIME ONE Stop: 05/07/19 12:29 Last Admin: 05/07/19 11:07 Dose: 25 mls/hr Mirtazapine (Remeron) 15 mg PO BEDTIME [facility] Ondansetron HCl (Zofran) 4 mg IVPUSH ONETIME ONE Stop: 05/06/19 12:24 Last Admin: 05/06/19 12:38 Dose: 4 mg Pantoprazole Sodium (Protonix Iv) 80 mg IVPUSH BOLUS ONE Stop: 05/06/19 12:24 Last Admin: 05/06/19 12:38 Dose: 80 mg Quetiapine Fumarate (Seroquel) 100 mg PO QPM [facility]ASIE - Exam Physical Findings Comments:: General: Alert, Oriented, Cooperative, No Acute Distress HEENT: Pupils Equal, Pupils Reactive, EOMI, Mucous Membr. Moist/[place] Neck: Supple, Trachea Midline, No JVD, No Thyromegaly, +2 Carotid Pulse wo Bruit. No: Lymphadenopathy Lungs: Clear to Auscultation, Normal Respiratory Effort, Crackles. No: Rales, Rhonchi, Wheezing Cardiovascular: Regular Rate, Regular Rhythm, No Murmurs GI/Abdominal Exam: Normal Bowel Sounds, Soft, Non-Tender, No Organomegaly Back Exam: Normal Inspection. No: CVA Tenderness (L), CVA Tenderness (R) Extremities: Normal Inspection, Normal Range of Motion, Normal Capillary Refill Skin: Warm Neurological: No New Focal Deficit Psy/Mental Status: Alert
== END 2019-05-08 15:06 | disposition home or self-care (01) | DRG 812 ==
LOC: JD.ED 11:27 → JD.MS 15:22
PROVIDERS: ADMIT Internal Medicine; ATTEND Internal Medicine
PROC: 30233N1 Transfusion of Nonautologous Red Blood Cells into Peripheral Vein, Percutaneous Approach (ICD-10-PCS; principal; 2019-05-06)
DX: K92.1 Melena (principal); K92.0 Hematemesis; Z87.19 Personal history of other diseases of the digestive system; D62 Acute posthemorrhagic anemia; K92.2 Gastrointestinal hemorrhage, unspecified; I95.1 Orthostatic hypotension; J44.9 Chronic obstructive pulmonary disease, unspecified; F03.90 Unspecified dementia, unspecified severity, without behavioral disturbance, psychotic disturbance, mood disturbance, and anxiety; E03.9 Hypothyroidism, unspecified; Z66 Do not resuscitate; I34.0 Nonrheumatic mitral (valve) insufficiency; G62.9 Polyneuropathy, unspecified; E11.9 Type 2 diabetes mellitus without complications; Z90.49 Acquired absence of other specified parts of digestive tract; Z79.890 Hormone replacement therapy; Z79.4 Long term (current) use of insulin; Z79.899 Other long term (current) drug therapy; Z87.891 Personal history of nicotine dependence; Z22.322 Carrier or suspected carrier of Methicillin resistant Staphylococcus aureus; Z79.82 Long term (current) use of aspirin
CPT/HCPCS: 36415; 36430; 36600; 71045; 80053; 81001; 82550; 82803; 83605; 83690; 83735; 85025; 86140; 86850; 86900; 86901; 86922; C9113; J2405; J7030; P9016; 80048; 82962; 83036; 84100; 85014; 85018; 85027; 87338; 96361; 96374; 96375; 97165-GO; 97530-GO; 99222; 99231; 99239; 99283; 99284-25; A9270-GY; J3475; J7120

== ENCOUNTER 2019-06-11 15:10 | Inpatient (IN) | payer MEDICARE, OTHER ==
[2019-06-11] MEDS ORDERED: Sodium Chloride 0.9% 10 ML Syringe FLUSH PRN (15:27)
--- NOTE | 2019-06-11 15:27 | EDM.PDOC ---
ED HPI GENERAL MEDICAL PROBLEM - General Chief Complaint: Lower Extremity Injury/Pain Stated Complaint: [facility] Time Seen by Provider: 06/11/19 15:20 Source of Information: Reports: Patient, EMS History Limitations: Reports: Other (dementia) - History of Present Illness INITIAL COMMENTS - FREE TEXT/NARRATIVE: patient is a 78-year-old male who presents by [facility] with complaints of left hip pain after falling at approximately 1:00 this morning. Per EMS report, patient was ambulating with his walker around 1:00 this morning when he fell. He is been complaining of pain to that hip since that time and has spent the day in bed. Patient does complain of pain to the left hip only with movement, he denies pain at rest. No history of prosthetic hip or previous hip surgeries in this extremity. By exam, does look like patient has bruises and abrasions in various stages of healing. When asked if he's been falling frequently, patient does state yes. He denies pain to any area other than his left hip. Left Hip Pain Score (Numeric/FACES): 7 - Related Data Allergies Allergy/AdvReac Type Severity Reaction Status Date / Time No Known Allergies Allergy Verified 05/06/19 12:16 Home Meds: Home Meds Aspirin [Ecotrin EC] 81 mg PO DAILY 05/06/19 [History] Donepezil HCl [Aricept] 10 mg PO QPM 05/06/19 [History] Levothyroxine [Synthroid] 50 mcg PO DAILY 05/06/19 [History] Midodrine 2.5 mg PO QPM 05/06/19 [History] Mirtazapine 15 mg PO QPM 05/06/19 [History] Multivit-Min/FA/Lycopen/Lutein [Centrum Silver Ultra Men's] 1 tab PO DAILY 05/06 [History] QUEtiapine [SEROquel] 50 mg PO QPM 05/06/19 [History] Turmeric Root Extract [Turmeric] 500 mg PO DAILY 05/06/19 [History] carBAMazepine [Carbamazepine] 200 mg PO BID 05/06/19 [History] Pantoprazole Sodium 40 mg PO BID #60 tablet. 05/08/19 [Rx] carvediloL [Coreg] 3.125 mg PO DAILY #30 tablet 05/08/19 [Rx] Acetaminophen [Tylenol Extra Strength] 500 mg PO ASDIRECTED 06/11/19 [History] Cholestyramine/Sucrose [Cholestyramine] 4 gram PO DAILY 06/11/19 [History] Insulin Glargine,Hum.Rec.Anlog [[place] Solostar] 0 unit INJECT ASDIRECTED [History] LORazepam [Ativan] 1 mg PO BEDTIME 06/11/19 [History] Past Medical History HEENT History: Reports: Impaired Vision Cardiovascular History: Reports: Heart Failure, High Cholesterol, Other (See Below) Other Cardiovascular History: low blood pressure Gastrointestinal History: Reports: GI Bleed Musculoskeletal History: Reports: Amputation Other Musculoskeletal History: Ribs couple weeks ago, L big toe amputated Neurological History: Reports: Other (See Below) Other Neuro History: dementia Psychiatric History: Reports: Dementia Endocrine/Metabolic History: Reports: Diabetes, Type II, Hypothyroidism - Past Surgical History HEENT Surgical History: Reports: Cataract Surgery GI Surgical History: Reports: Colonoscopy Other GI Surgeries/Procedures: bowel resection- 2009 Social & Family History - Family History Family Medical History: Noncontributory - Caffeine Use Caffeine Use: Reports: None Review of Systems - Review of Systems Review Of Systems: Comprehensive ROS is negative, except as noted in HPI. ED EXAM, GENERAL - Physical Exam Exam: See Below Exam Limited By: Other (Alzheimer's dementia) General Appearance: Alert, WD/WN, No Apparent Distress Respiratory/Chest: No Respiratory Distress, Lungs Clear, Normal Breath Sounds, No Accessory Muscle Use, Chest Non-Tender Cardiovascular: Normal Peripheral Pulses, Regular Rate, Rhythm, No Edema, No Gallop, No JVD, No Murmur, No Rub Extremities: Other ( No shortening, bruising, rotation or other obvious deformity to bilateral lower extremities. Tender to palpation near the left SI joint. No bruising noted in this area.) Neurological: Alert, Oriented, Normal Cognition, No Motor/Sensory Deficits, Other (patient has a history of dementia, however he is answering questions appropriately at this time.) Psychiatric: Normal Affect, Normal Mood Skin Exam: Warm, Dry, Normal Color, Other (bruise to the left mid back that appears to be old. Patient is not tender in this area. Scattered abrasionsn various stages of healing to the upper extremities and lower extremities.) Course - Vital Signs Last Recorded V/S: Last Vital Signs Temp 97.9 F 06/11/19 15:22 Pulse 82 06/11/19 15:22 Resp 20 06/11/19 15:22 BP 136/40 L 06/11/19 15:22 Pulse Ox 98 06/11/19 15:22 - Orders/Labs/Meds Orders: Active Orders 24 hr Category Date Time Status Patient Status [ADT] Routine ADT 06/11/19 19:24 Active EKG Documentation Completion [RC] STAT Care 06/11/19 15:27 Active Peripheral IV Care [RC] . DIRECTED Care 06/11/19 15:28 Active Hip wo Cont Lt [CT] Stat Exams 06/11/19 16:26 Ordered Sodium Chloride 0.9% [Normal Saline] 1,000 ml Med 06/11/19 15:30 Active IV ASDIRECTED Sodium Chloride 0.9% [Saline Flush] Med 06/11/19 15:27 Active 10 ml FLUSH ASDIRECTED PRN Peripheral IV Insertion Adult [OM.PC] Stat Oth 06/11/19 15:27 Ordered Medication Orders Sodium Chloride (Normal Saline) 1,000 mls @ 150 mls/hr IV ASDIRECTED KASIE Last Admin: 06/11/19 15:45 Dose: 150 mls/hr Sodium Chloride (Saline Flush) 10 ml FLUSH ASDIRECTED PRN PRN Reason: Keep Vein Open Last Admin: 06/11/19 15:35 Dose: 10 ml Labs: Laboratory Tests 06/11/19 06/11/19 06/11/19 Range/Units 15:30 15:30 15:30 WBC 6.68 (4.23-9.07) K/mm3 RBC 3.28 L (4.63-6.08) M/mm3 Hgb 9.8 L (13.7-17.5) gm/dl Hct 30.5 L (40.1-51.0) % MCV 93.0 H (79.0-92.2) fl MCH 29.9 (25.7-32.2) pg MCHC 32.1 L (32.2-35.5) g/dl RDW Std Deviation 46.3 H (35.1-43.9) fL Plt Count 188 (163-337) K/mm3 MPV 8.8 L (9.4-12.3) fl Neut % (Auto) 76.4 H (34.0-67.9) % Lymph % (Auto) 10.8 L (21.8-53.1) % [place] % (Auto) 11.4 (5.3-12.2) % Eos % (Auto) 1.0 (0.8-7.0) Baso % (Auto) 0.3 (0.1-1.2) % Neut # (Auto) 5.10 (1.78-5.38) K/mm3 Lymph # (Auto) 0.72 L (1.32-3.57) K/mm3 [place] # (Auto) 0.76 (0.30-0.82) K/mm3 Eos # (Auto) 0.07 (0.04-0.54) K/mm3 Baso # (Auto) 0.02 (0.01-0.08) K/mm3 Sodium 140 (136-145) mEq/L Potassium 4.8 (3.5-5.1) mEq/L Chloride 106 (98-107) mEq/L Carbon Dioxide 21 (21-32) mEq/L Anion Gap 17.8 H (5-15) BUN 37 H (7-18) mg/dL Creatinine 1.9 H (0.7-1.3) mg/dL Est Cr Clr Drug Dosing 36.41 mL/min Estimated GFR (MDRD) 34 (>60) mL/min BUN/Creatinine Ratio 19.5 H (14-18) Glucose 132 H (83-115) mg/dL Calcium 8.1 L (8.5-10.1) mg/dL Total Bilirubin 0.3 (0.2-1.0) mg/dL AST 30 (15-37) U/L ALT 36 (16-63) U/L Alkaline Phosphatase 127 H (46-116) U/L Total Protein 6.5 (6.4-8.2) g/dl Albumin 3.1 L (3.4-5.0) g/dl Globulin 3.4 gm/dL Albumin/Globulin Ratio 0.9 L (1-2) Urine Color Yellow (Yellow) Urine Appearance Slt cloudy H (Clear) Urine pH 5.5 (5.0-8.0) Ur Specific [place] > or = 1.030 (1.005-1.030) Urine Protein Negative (Negative) Urine Glucose (UA) Negative (Negative) Urine Ketones Trace H (Negative) Urine Occult Blood Negative (Negative) Urine Nitrite Negative (Negative) Urine Bilirubin Negative (Negative) Urine Urobilinogen 0.2 (0.2-1.0) Ur Leukocyte Esterase Negative (Negative) Urine RBC 0-5 (0-5) /hpf Urine WBC 0-5 (0-5) /hpf Ur Squamous Epith Cells 0-5 (0-5) /hpf Amorphous Sediment Few H (NOT SEEN) /hpf Urine Bacteria Few (FEW) /hpf Urine Mucus Not seen (FEW) /hpf Meds: Medications Generic Name Dose Route Start Last Admin Trade Name Freq PRN Reason Stop Dose Admin Sodium Chloride 1,000 mls @ 150 mls/hr 06/11/19 15:30 06/11/19 15:45 Normal Saline IV 150 mls/hr ASDIRECTED KASIE Administration Sodium Chloride 10 ml 06/11/19 15:27 06/11/19 15:35 Saline Flush FLUSH 10 ml ASDIRECTED PRN Administration Keep Vein Open Discontinued Medications Generic Name Dose Route Start Last Admin Trade Name Freq PRN Reason Stop Dose Admin Acetaminophen 975 mg 06/11/19 19:11 06/11/19 19:17 Tylenol PO 06/11/19 19:12 975 mg NOW ONE Administration Hydromorphone HCl 0.25 mg 06/11/19 15:28 06/11/19 15:43 Dilaudid IVPUSH 06/11/19 15:29 0.25 mg ONETIME ONE Administration Ondansetron HCl 4 mg 06/11/19 15:29 06/11/19 15:40 Zofran IVPUSH 06/11/19 15:30 4 mg ONETIME ONE Administration - Re-Assessments/Exams Free Text/Narrative Re-Assessment/Exam: 06/11/19 17:19 X-ray of the left hip and pelvis shows a fracture of the left iliac wing. I did contact with orthopedist Dr. Gardiner at [facility] in [place]. He recommended that we complete a CT of the pelvis to ensure that there is no sacral fracture. If the sacrum is not involved, he states that there would be no reason to send him to [place] for orthopedics if these are nonoperative. 06/11/19 19:01 CT of the pelvis shows a nondisplaced left iliac wing fracture area. There is no sacral fracture seen. I did speak with orthopedist, Dr. Welch. He advised the patient can be weightbearing as tolerated with pain control. I spoke with hospitalist, Dr. Neri. Patient will be admitted as an inpatient. Departure - Departure Time of Disposition: 19:13 Disposition: Admitted As Inpatient 65 Condition: Fair Clinical Impression: Fracture of left iliac wing Qualifiers: Encounter type: initial encounter Fracture type: closed Qualified Code(s): S32.302A - Unspecified fracture of left ilium, initial encounter for closed fracture - Discharge Information *PRESCRIPTION DRUG MONITORING PROGRAM REVIEWED*: No *COPY OF PRESCRIPTION DRUG MONITORING REPORT IN PATIENT KAITY: No Referrals: PCP,None [Primary Care Provider] - Forms: ED Department Discharge Sepsis Event Note - Focused Exam Vital Signs: Vital Signs Temp Pulse Resp BP Pulse Ox 06/11/19 15:22 97.9 F 82 20 136/40 L 98 Date Exam was Performed: 06/11/19 Time Exam was Performed: 19:33 - My Orders Last 24 Hours: My Active Orders 06/11/19 15:27 EKG Documentation Completion [RC] STAT Sodium Chloride 0.9% [Saline Flush] 10 ml FLUSH ASDIRECTED PRN Peripheral IV Insertion Adult [OM.PC] Stat 06/11/19 15:28 Peripheral IV Care [RC] . DIRECTED 06/11/19 15:30 Sodium Chloride 0.9% [Normal Saline] 1,000 ml IV ASDIRECTED 06/11/19 16:26 Hip wo Cont Lt [CT] Stat 06/11/19 19:24 Patient Status [ADT] Routine - Assessment/Plan Last 24 Hours: My Active Orders 06/11/19 15:27 EKG Documentation Completion [RC] STAT Sodium Chloride 0.9% [Saline Flush] 10 ml FLUSH ASDIRECTED PRN Peripheral IV Insertion Adult [OM.PC] Stat 06/11/19 15:28 Peripheral IV Care [RC] . DIRECTED 06/11/19 15:30 Sodium Chloride 0.9% [Normal Saline] 1,000 ml IV ASDIRECTED 06/11/19 16:26 Hip wo Cont Lt [CT] Stat 06/11/19 19:24 Patient Status [ADT] Routine
[2019-06-11] MEDS ORDERED: HYDROmorphone 0.5 MG/0.5 ML Syringe IVPUSH ONE (15:28)
[2019-06-11] MEDS ORDERED: Ondansetron 4 MG/2 ML SDV IVPUSH ONE (15:29)
[2019-06-11] MEDS ORDERED: Sodium Chloride 0.9% 1,000 ML IV SCH (15:30)
--- NOTE | 2019-06-11 16:44 | CR ---
Pelvis and left hip: AP view of the pelvis was obtained as well as AP and crosstable lateral views left hip. Bony structures are osteopenic. Joint space narrowing is seen within the right hip. Fracture is identified within the left iliac wing. No additional fracture is appreciated. Diffuse vascular calcification is noted. Impression: 1. Fracture is seen within the left iliac wing. 2. Other findings as noted above. Diagnostic code #3 Study was dictated in [place] Standard Time
--- NOTE | 2019-06-11 18:50 | CT ---
CT pelvis Technique: Multiple axial sections through the pelvis were obtained. Reconstructed coronal and sagittal images were reviewed. Findings: Nondisplaced left iliac wing fracture is noted. Right iliac wing appears intact. Sacroiliac joints shows degenerative change. No sacral fracture is seen. Degenerative change is partially visualized within the lower lumbar spine. No additional pelvic fracture is seen. Left S1 neural foramina is widened due to a nerve root diverticulum. Impression: 1. Degenerative change within the visualized lumbar spine. 2. Nondisplaced left iliac wing fracture. 3. Other findings believed to be incidental. 4. No other acute finding is seen. Diagnostic code #3 This report was dictated in [place] Standard Time
[2019-06-11] MEDS ORDERED: Acetaminophen 325 MG Tab PO ONE (19:11)
--- NOTE | 2019-06-11 20:47 | PCM.HP.2 ---
H&P History of Present Illness - General Date of Service: 06/11/19 Admit Problem/Dx: Admission Diagnosis/Problem Admission Diagnosis/Problem Closed fracture of iliac crest - History of Present Illness Initial Comments - Free Text/Narative: 78-year-old male with dementia and a poor historian presents to the emergency room via EMS with complaints of left hip pain after falling approximately 1:00 this morning. Because of his dementia and the family members that are present during the interview not being present during the fall history is obtained through family and through emergency room providers notes. It is believed that he was ambulating with his walker at around 1:00 in the morning and he fell. He has been complaining of severe pain since that time. He lives in a home with a caregiver. Pain is mild at rest, but is unable to walk without 2 person assist. He is unable to toilet himself or do any activities of daily living. It appears the patient has had multiple falls recently. He was admitted last month secondary to a GI bleed. He has a left great toe amputation approximately 4 months ago. Family believes it secondary to diabetes. CT of the pelvis showed nondisplaced left iliac wing fracture. In the emergency room patient required Dilaudid and Zofran secondary to pain and nausea. He was unable to ambulate on his own. Labs WBC 6.68, hemoglobin 9.8, platelet count 188, sodium 140, potassium 4.8, chloride 106, carbon dioxide 21, anion gap 17.8, BUN 37, creatinine 1.9, glucose 132 Left Hip Pain Score (Numeric/FACES): 7 - Related Data Allergies/Adverse Reactions: Allergies Allergy/AdvReac Type Severity Reaction Status Date / Time No Known Allergies Allergy Verified 05/06/19 12:16 Home Medications: Home Meds Aspirin [Ecotrin EC] 81 mg PO DAILY 05/06/19 [History] Donepezil HCl [Aricept] 10 mg PO QPM 05/06/19 [History] Levothyroxine [Synthroid] 50 mcg PO DAILY 05/06/19 [History] Midodrine 2.5 mg PO QPM 05/06/19 [History] Mirtazapine 15 mg PO QPM 05/06/19 [History] Multivit-Min/FA/Lycopen/Lutein [Centrum Silver Ultra Men's] 1 tab PO DAILY 05/06 [History] QUEtiapine [SEROquel] 50 mg PO QPM 05/06/19 [History] Turmeric Root Extract [Turmeric] 500 mg PO DAILY 05/06/19 [History] carBAMazepine [Carbamazepine] 200 mg PO BID 05/06/19 [History] Pantoprazole Sodium 40 mg PO BID #60 tablet. 05/08/19 [Rx] carvediloL [Coreg] 3.125 mg PO DAILY #30 tablet 05/08/19 [Rx] Acetaminophen/Diphenhydramine [Tylenol Pm Ex-Strength Caplet] 25 - 500 mg PO BEDTIME PRN 06/11/19 [History] Cholestyramine/Sucrose [Cholestyramine] 4 gram PO DAILY 06/11/19 [History] LORazepam [Ativan] 1 mg PO BEDTIME 06/11/19 [History] Past Medical History HEENT History: Reports: Impaired Vision Cardiovascular History: Reports: Heart Failure, High Cholesterol, Other (See Below) Other Cardiovascular History: low blood pressure Gastrointestinal History: Reports: GI Bleed Musculoskeletal History: Reports: Amputation Other Musculoskeletal History: Ribs couple weeks ago, L big toe amputated Neurological History: Reports: Other (See Below) Other Neuro History: dementia Psychiatric History: Reports: Dementia Endocrine/Metabolic History: Reports: Diabetes, Type II, Hypothyroidism - Past Surgical History HEENT Surgical History: Reports: Cataract Surgery GI Surgical History: Reports: Colonoscopy Other GI Surgeries/Procedures: bowel resection- 2009 Social & Family History - Family History Family Medical History: Noncontributory - Tobacco Use Smoking Status *Q: Former Smoker Used Tobacco, but Quit: Yes Month/Year Tobacco Last Used: 30 yrs - Caffeine Use Caffeine Use: Reports: None - Recreational Drug Use Recreational Drug Use: No H&P Review of Systems - Review of Systems: Review Of Systems: Unable To Obtain Reason Not Obtained: Dementia Exam - Exam Exam: See Below - Vital Signs Vital Signs: Last Vital Signs Temp 97.9 F 06/11/19 15:22 Pulse 82 06/11/19 15:22 Resp 20 06/11/19 15:22 BP 136/40 L 06/11/19 15:22 Pulse Ox 98 06/11/19 15:22 Weight: 180 lb - Exam Quality Assessment: No: Supplemental Oxygen General: Alert. No: Oriented HEENT: Conjunctiva Clear, Hearing Intact (But decreased), Mucosa Moist & [employer], Normal Nasal Septum Neck: Supple, Trachea Midline, 2 Lungs: Clear to Auscultation, Normal Respiratory Effort Cardiovascular: Regular Rate, Regular Rhythm GI/Abdominal Exam: Normal Bowel Sounds, Soft, Non-Tender, No Organomegaly, No Distention Back Exam: Normal Inspection, Other (Severe tenderness over the iliac wing) Extremities: Normal Inspection, Other (Left foot 2+ pitting edema with dry scaling rash on the anterior vásquez. Amputation of the left great toe. Eschar on the plantar side of second and third toe. According to family this is improved from previous.) Skin: Warm, Dry Neuro Extensive - Mental Status: Alert, Disorientation to Place, Disorientation to Time, Memory Loss-Remote Events, Memory Loss-Recent Events Neuro Extensive - Motor, Sensory, Reflexes: Abnormal Gait, Ataxia, Abnormal Motor (Severely limited motion of the left lower extremity secondary to pain.) Psychiatric: Alert, Normal Affect, Normal Mood - Patient Data Lab Results Last 24 hrs: Laboratory Results - last 24 hr 06/11/19 06/11/19 06/11/19 Range/Units 15:30 15:30 15:30 WBC 6.68 (4.23-9.07) K/mm3 RBC 3.28 L (4.63-6.08) M/mm3 Hgb 9.8 L (13.7-17.5) gm/dl Hct 30.5 L (40.1-51.0) % MCV 93.0 H (79.0-92.2) fl MCH 29.9 (25.7-32.2) pg MCHC 32.1 L (32.2-35.5) g/dl RDW Std Deviation 46.3 H (35.1-43.9) fL Plt Count 188 (163-337) K/mm3 MPV 8.8 L (9.4-12.3) fl Neut % (Auto) 76.4 H (34.0-67.9) % Lymph % (Auto) 10.8 L (21.8-53.1) % [place] % (Auto) 11.4 (5.3-12.2) % Eos % (Auto) 1.0 (0.8-7.0) Baso % (Auto) 0.3 (0.1-1.2) % Neut # (Auto) 5.10 (1.78-5.38) K/mm3 Lymph # (Auto) 0.72 L (1.32-3.57) K/mm3 [place] # (Auto) 0.76 (0.30-0.82) K/mm3 Eos # (Auto) 0.07 (0.04-0.54) K/mm3 Baso # (Auto) 0.02 (0.01-0.08) K/mm3 Sodium 140 (136-145) mEq/L Potassium 4.8 (3.5-5.1) mEq/L Chloride 106 (98-107) mEq/L Carbon Dioxide 21 (21-32) mEq/L Anion Gap 17.8 H (5-15) BUN 37 H (7-18) mg/dL Creatinine 1.9 H (0.7-1.3) mg/dL Est Cr Clr Drug Dosing 36.41 mL/min Estimated GFR (MDRD) 34 (>60) mL/min BUN/Creatinine Ratio 19.5 H (14-18) Glucose 132 H (83-115) mg/dL Calcium 8.1 L (8.5-10.1) mg/dL Total Bilirubin 0.3 (0.2-1.0) mg/dL AST 30 (15-37) U/L ALT 36 (16-63) U/L Alkaline Phosphatase 127 H (46-116) U/L Total Protein 6.5 (6.4-8.2) g/dl Albumin 3.1 L (3.4-5.0) g/dl Globulin 3.4 gm/dL Albumin/Globulin Ratio 0.9 L (1-2) Urine Color Yellow (Yellow) Urine Appearance Slt cloudy H (Clear) Urine pH 5.5 (5.0-8.0) Ur Specific [place] > or = 1.030 (1.005-1.030) Urine Protein Negative (Negative) Urine Glucose (UA) Negative (Negative) Urine Ketones Trace H (Negative) Urine Occult Blood Negative (Negative) Urine Nitrite Negative (Negative) Urine Bilirubin Negative (Negative) Urine Urobilinogen 0.2 (0.2-1.0) Ur Leukocyte Esterase Negative (Negative) Urine RBC 0-5 (0-5) /hpf Urine WBC 0-5 (0-5) /hpf Ur Squamous Epith Cells 0-5 (0-5) /hpf Amorphous Sediment Few H (NOT SEEN) /hpf Urine Bacteria Few (FEW) /hpf Urine Mucus Not seen (FEW) /hpf Result Diagrams: 06/12/19 06:07 06/12/19 06:07 Sepsis Event Note - Evaluation Sepsis Screening Result: No Definite Risk - Focused Exam Vital Signs: Vital Signs Temp Pulse Resp BP Pulse Ox 06/11/19 15:22 97.9 F 82 20 136/40 L 98 Date Exam was Performed: 06/12/19 Time Exam was Performed: 12:25 Problem List Initiated/Reviewed/Updated: Yes Orders Last 24hrs: Active Orders 24 hr Category Date Time Status Patient Status [ADT] Routine ADT 06/11/19 19:24 Active EKG Documentation Completion [RC] STAT Care 06/11/19 15:27 Active Peripheral IV Care [RC] . DIRECTED Care 06/11/19 15:28 Active Hip wo Cont Lt [CT] Stat Exams 06/11/19 16:26 Ordered Sodium Chloride 0.9% [Normal Saline] 1,000 ml Med 06/11/19 15:30 Active IV ASDIRECTED Sodium Chloride 0.9% [Saline Flush] Med 06/11/19 15:27 Active 10 ml FLUSH ASDIRECTED PRN Peripheral IV Insertion Adult [OM.PC] Stat Oth 06/11/19 15:27 Ordered Medication Orders Sodium Chloride (Normal Saline) 1,000 mls @ 150 mls/hr IV ASDIRECTED KASIE Last Admin: 06/11/19 15:45 Dose: 150 mls/hr Sodium Chloride (Saline Flush) 10 ml FLUSH ASDIRECTED PRN PRN Reason: Keep Vein Open Last Admin: 06/11/19 15:35 Dose: 10 ml Assessment/Plan Comment:: Assessment * Nondisplaced left iliac wing fracture * Emergency room provider consulted orthopedics in [place], Dr. Welch, who recommended weightbearing as tolerated. * Nonsurgical * Stage III chronic renal insufficiency with acute renal injury * BUN 37, creatinine 1.9, estimated GFR 34 * Metabolic acidosis * Anion gap 18 * Likely secondary to dehydration and poor oral intake. * Poor oral intake is presumably secondary to inability to walk and get to nutrition. * Mild protein malnutrition/dehydration/failure to thrive * Albumin 3.1, BUN/creatinine ratio 20 * Anemia * GI bleed last month * Hemoglobin increased from discharge. 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 He requires a 2 assist to help with ambulation and toileting. Patient required Dilaudid in the emergency room for pain control. * PT and OT * Pain management with IV pain medications secondary to severe pain. No NSAIDs secondary to recent GI bleed. * IV fluids to help correct metabolic acidosis and dehydration * Reconcile home meds. * Dietary consult secondary to malnutrition and diabetes * VTE prophylaxis with SCDs * CODE STATUS: DNR/DNI * Length of stay anticipated to be 3 to 4 days. - Mortality Measure Prognosis:: Good
[2019-06-11] MEDS ORDERED: Ondansetron 4 MG/2 ML SDV IV PRN (21:07)
[2019-06-11] MEDS ORDERED: HYDROmorphone 0.5 MG/0.5 ML Syringe IVPUSH PRN (21:07)
[2019-06-11] MEDS: Mirtazapine 15 MG Tab PO SCH (22:48)
[2019-06-11] MEDS: carBAMazepine 200 MG Tab PO SCH (22:48)
[2019-06-11] MEDS: LORazepam 1 MG Tab PO SCH (22:48)
[2019-06-11] MEDS: Carvedilol 3.125 MG Tab PO SCH (22:48)
[2019-06-11] MEDS: Insulin Lispro 100 Units/ML 3 ML Vial SUBCUT SCH (22:49)
[2019-06-11] MEDS: QUEtiapine 100 MG Tab PO SCH (22:50)
[2019-06-12] MEDS: Sodium Chloride 0.9% 1,000 ML IV SCH ×2 (00:37→21:16)
[2019-06-12] MEDS: Insulin Lispro 100 Units/ML 3 ML Vial SUBCUT SCH ×4 (07:38→21:16)
[2019-06-12] MEDS ORDERED: Magnesium Sulfate/Water 4 GM in Premix Bag 1 BAG IV ONE (08:13)
[2019-06-12 08:20] LABS: HEMOGLOBIN A1C 6.2 % (4.50-6.20)
[2019-06-12] MEDS: Acetaminophen 325 MG Tab PO PRN ×2 (08:50→17:19)
[2019-06-12] MEDS: Aspirin 81 MG Tab.EC PO SCH (08:51)
[2019-06-12] MEDS: Carvedilol 3.125 MG Tab PO SCH (08:51)
[2019-06-12] MEDS: Pantoprazole 40 MG Tab.CR PO SCH ×2 (08:56→20:12)
[2019-06-12] MEDS: Cholestyramine/Sucrose Powder 4 GM Packet PO SCH (08:56)
[2019-06-12] MEDS: Levothyroxine 50 MCG Tab PO SCH (08:56)
[2019-06-12] MEDS: carBAMazepine 200 MG Tab PO SCH ×2 (08:56→20:12)
--- NOTE | 2019-06-12 10:00 | CT ---
CT left hip Technique: Multiple axial sections through the left hip were obtained. Reconstructed coronal and sagittal images were obtained. Comparison: Previous pelvis and left hip exam performed earlier on the same day (3:59 PM). Findings: Left iliac wing fracture is seen which shows no displacement. No hip fracture is identified. Superior and inferior pubic ramus that are seen appear intact. Extensive vascular calcification is noted. Mild degenerative change is seen within the superior hip. Impression: 1. Nondisplaced left iliac wing fracture. 2. Mild degenerative change within superior left hip. 3. Extensive vascular calcification. 4. No acute fracture is seen within the left hip. Diagnostic code #3 This report was dictated in [place] Standard Time MTDD
--- NOTE | 2019-06-12 12:27 | PCM.PN ---
- General Info Date of Service: 06/12/19 Admission Dx/Problem (Free Text): Admission Diagnosis/Problem Admission Diagnosis/Problem Closed fracture of iliac crest Subjective Update: Patient is eating breakfast comfortably. Complains of left low back pain consistent with his injury. - Review of Systems HEENT: Reports: No Symptoms Pulmonary: Reports: No Symptoms Cardiovascular: Reports: No Symptoms Musculoskeletal: Reports: Back Pain - Patient Data Vitals - Most Recent: Last Vital Signs Temp 97.9 F 06/12/19 08:53 Pulse 56 L 06/12/19 08:53 Resp 18 06/12/19 08:53 BP 127/49 L 06/12/19 08:53 Pulse Ox 96 06/12/19 08:53 Weight - Most Recent: 180 lb I&O - Last 24 Hours: Intake & Output 06/11/19 06/12/19 06/12/19 22:59 06:59 14:59 Intake Total 400 0 Output Total 475 Balance -75 0 Lab Results Last 24 Hours: Laboratory Results - last 24 hr 06/11/19 06/11/19 06/11/19 Range/Units 15:30 15:30 15:30 WBC 6.68 (4.23-9.07) K/mm3 RBC 3.28 L (4.63-6.08) M/mm3 Hgb 9.8 L (13.7-17.5) gm/dl Hct 30.5 L (40.1-51.0) % MCV 93.0 H (79.0-92.2) fl MCH 29.9 (25.7-32.2) pg MCHC 32.1 L (32.2-35.5) g/dl RDW Std Deviation 46.3 H (35.1-43.9) fL Plt Count 188 (163-337) K/mm3 MPV 8.8 L (9.4-12.3) fl Neut % (Auto) 76.4 H (34.0-67.9) % Lymph % (Auto) 10.8 L (21.8-53.1) % Saunders % (Auto) 11.4 (5.3-12.2) % Eos % (Auto) 1.0 (0.8-7.0) Baso % (Auto) 0.3 (0.1-1.2) % Neut # (Auto) 5.10 (1.78-5.38) K/mm3 Lymph # (Auto) 0.72 L (1.32-3.57) K/mm3 Saunders # (Auto) 0.76 (0.30-0.82) K/mm3 Eos # (Auto) 0.07 (0.04-0.54) K/mm3 Baso # (Auto) 0.02 (0.01-0.08) K/mm3 Sodium 140 (136-145) mEq/L Potassium 4.8 (3.5-5.1) mEq/L Chloride 106 (98-107) mEq/L Carbon Dioxide 21 (21-32) mEq/L Anion Gap 17.8 H (5-15) BUN 37 H (7-18) mg/dL Creatinine 1.9 H (0.7-1.3) mg/dL Est Cr Clr Drug Dosing 36.41 mL/min Estimated GFR (MDRD) 34 (>60) mL/min BUN/Creatinine Ratio 19.5 H (14-18) Glucose 132 H (83-115) mg/dL POC Glucose (83-110) mg/dL Hemoglobin A1c (4.50-6.20) % Calcium 8.1 L (8.5-10.1) mg/dL Magnesium (1.8-2.4) mg/dl Total Bilirubin 0.3 (0.2-1.0) mg/dL AST 30 (15-37) U/L ALT 36 (16-63) U/L Alkaline Phosphatase 127 H (46-116) U/L Total Protein 6.5 (6.4-8.2) g/dl Albumin 3.1 L (3.4-5.0) g/dl Globulin 3.4 gm/dL Albumin/Globulin Ratio 0.9 L (1-2) TSH 3rd Generation (0.358-3.74) uIU/mL Urine Color Yellow (Yellow) Urine Appearance Slt cloudy H (Clear) Urine pH 5.5 (5.0-8.0) Ur Specific [place] > or = 1.030 (1.005-1.030) Urine Protein Negative (Negative) Urine Glucose (UA) Negative (Negative) Urine Ketones Trace H (Negative) Urine Occult Blood Negative (Negative) Urine Nitrite Negative (Negative) Urine Bilirubin Negative (Negative) Urine Urobilinogen 0.2 (0.2-1.0) Ur Leukocyte Esterase Negative (Negative) Urine RBC 0-5 (0-5) /hpf Urine WBC 0-5 (0-5) /hpf Ur Squamous Epith Cells 0-5 (0-5) /hpf Amorphous Sediment Few H (NOT SEEN) /hpf Urine Bacteria Few (FEW) /hpf Urine Mucus Not seen (FEW) /hpf 06/11/19 06/12/19 06/12/19 Range/Units 22:47 06:07 06:07 WBC 4.52 (4.23-9.07) K/mm3 RBC 2.87 L (4.63-6.08) M/mm3 Hgb 8.4 L (13.7-17.5) gm/dl Hct 27.0 L (40.1-51.0) % MCV 94.1 H (79.0-92.2) fl MCH 29.3 (25.7-32.2) pg MCHC 31.1 L (32.2-35.5) g/dl RDW Std Deviation 46.3 H (35.1-43.9) fL Plt Count 149 L (163-337) K/mm3 MPV 9.1 L (9.4-12.3) fl Neut % (Auto) 63.4 (34.0-67.9) % Lymph % (Auto) 17.9 L (21.8-53.1) % Saunders % (Auto) 15.0 H (5.3-12.2) % Eos % (Auto) 3.3 (0.8-7.0) Baso % (Auto) 0.4 (0.1-1.2) % Neut # (Auto) 2.86 (1.78-5.38) K/mm3 Lymph # (Auto) 0.81 L (1.32-3.57) K/mm3 Saunders # (Auto) 0.68 (0.30-0.82) K/mm3 Eos # (Auto) 0.15 (0.04-0.54) K/mm3 Baso # (Auto) 0.02 (0.01-0.08) K/mm3 Sodium 141 (136-145) mEq/L Potassium 3.9 (3.5-5.1) mEq/L Chloride 109 H (98-107) mEq/L Carbon Dioxide 20 L (21-32) mEq/L Anion Gap 15.9 H (5-15) BUN 29 H (7-18) mg/dL Creatinine 1.4 H (0.7-1.3) mg/dL Est Cr Clr Drug Dosing 49.41 mL/min Estimated GFR (MDRD) 49 (>60) mL/min BUN/Creatinine Ratio 20.7 H (14-18) Glucose 82 L (83-115) mg/dL POC Glucose 112 H (83-110) mg/dL Hemoglobin A1c (4.50-6.20) % Calcium 8.3 L (8.5-10.1) mg/dL Magnesium 1.5 L (1.8-2.4) mg/dl Total Bilirubin 0.3 (0.2-1.0) mg/dL AST 28 (15-37) U/L ALT 32 (16-63) U/L Alkaline Phosphatase 103 (46-116) U/L Total Protein 5.5 L (6.4-8.2) g/dl Albumin 2.5 L (3.4-5.0) g/dl Globulin 3.0 gm/dL Albumin/Globulin Ratio 0.8 L (1-2) TSH 3rd Generation 2.019 (0.358-3.74) uIU/mL Urine Color (Yellow) Urine Appearance (Clear) Urine pH (5.0-8.0) Ur Specific [place] (1.005-1.030) Urine Protein (Negative) Urine Glucose (UA) (Negative) Urine Ketones (Negative) Urine Occult Blood (Negative) Urine Nitrite (Negative) Urine Bilirubin (Negative) Urine Urobilinogen (0.2-1.0) Ur Leukocyte Esterase (Negative) Urine RBC (0-5) /hpf Urine WBC (0-5) /hpf Ur Squamous Epith Cells (0-5) /hpf Amorphous Sediment (NOT SEEN) /hpf Urine Bacteria (FEW) /hpf Urine Mucus (FEW) /hpf 06/12/19 06/12/19 Range/Units 06:07 07:10 WBC (4.23-9.07) K/mm3 RBC (4.63-6.08) M/mm3 Hgb (13.7-17.5) gm/dl Hct (40.1-51.0) % MCV (79.0-92.2) fl MCH (25.7-32.2) pg MCHC (32.2-35.5) g/dl RDW Std Deviation (35.1-43.9) fL Plt Count (163-337) K/mm3 MPV (9.4-12.3) fl Neut % (Auto) (34.0-67.9) % Lymph % (Auto) (21.8-53.1) % Saunders % (Auto) (5.3-12.2) % Eos % (Auto) (0.8-7.0) Baso % (Auto) (0.1-1.2) % Neut # (Auto) (1.78-5.38) K/mm3 Lymph # (Auto) (1.32-3.57) K/mm3 Saunders # (Auto) (0.30-0.82) K/mm3 Eos # (Auto) (0.04-0.54) K/mm3 Baso # (Auto) (0.01-0.08) K/mm3 Sodium (136-145) mEq/L Potassium (3.5-5.1) mEq/L Chloride (98-107) mEq/L Carbon Dioxide (21-32) mEq/L Anion Gap (5-15) BUN (7-18) mg/dL Creatinine (0.7-1.3) mg/dL Est Cr Clr Drug Dosing mL/min Estimated GFR (MDRD) (>60) mL/min BUN/Creatinine Ratio (14-18) Glucose (83-115) mg/dL POC Glucose 94 (83-110) mg/dL Hemoglobin A1c 6.20 (4.50-6.20) % Calcium (8.5-10.1) mg/dL Magnesium (1.8-2.4) mg/dl Total Bilirubin (0.2-1.0) mg/dL AST (15-37) U/L ALT (16-63) U/L Alkaline Phosphatase (46-116) U/L Total Protein (6.4-8.2) g/dl Albumin (3.4-5.0) g/dl Globulin gm/dL Albumin/Globulin Ratio (1-2) TSH 3rd Generation (0.358-3.74) uIU/mL Urine Color (Yellow) Urine Appearance (Clear) Urine pH (5.0-8.0) Ur Specific [place] (1.005-1.030) Urine Protein (Negative) Urine Glucose (UA) (Negative) Urine Ketones (Negative) Urine Occult Blood (Negative) Urine Nitrite (Negative) Urine Bilirubin (Negative) Urine Urobilinogen (0.2-1.0) Ur Leukocyte Esterase (Negative) Urine RBC (0-5) /hpf Urine WBC (0-5) /hpf Ur Squamous Epith Cells (0-5) /hpf Amorphous Sediment (NOT SEEN) /hpf Urine Bacteria (FEW) /hpf Urine Mucus (FEW) /hpf Med Orders - Current: Current Medications Acetaminophen (Tylenol) 650 mg PO Q4H PRN PRN Reason: Pain (Mild 1-3)/fever Last Admin: 06/12/19 08:50 Dose: 650 mg Aspirin (Halfprin) 81 mg PO DAILY [facility] Last Admin: 06/12/19 08:51 Dose: 81 mg Carbamazepine (Tegretol Tab) 200 mg PO BID [facility] Last Admin: 06/12/19 08:56 Dose: 200 mg Carvedilol (Coreg) 3.125 mg PO DAILY [facility] Last Admin: 06/12/19 08:51 Dose: 3.125 mg Cholestyramine Resin (Cholestyramine Packet) 4 gm PO DAILY [facility] Last Admin: 06/12/19 08:56 Dose: 4 gm Donepezil HCl (Aricept) 10 mg PO QPM [facility] Hydromorphone HCl (Dilaudid) 0.25 mg IVPUSH Q2H PRN PRN Reason: Pain (severe 7-10) Sodium Chloride (Normal Saline) 1,000 mls @ 50 mls/hr IV ASDIRECTED [facility] Last Admin: 06/12/19 00:37 Dose: 50 mls/hr Insulin Human Lispro (Humalog) 0 unit SUBCUT QIDACANDBED [facility]; Protocol Last Admin: 06/12/19 07:38 Dose: Not Given Levothyroxine Sodium (Synthroid) 50 mcg PO DAILY [facility] Last Admin: 06/12/19 08:56 Dose: 50 mcg Lorazepam (Ativan) 1 mg PO BEDTIME [facility] Last Admin: 06/11/19 22:48 Dose: 1 mg Midodrine (Midodrine) 2.5 mg PO QPM [facility] Mirtazapine (Remeron) 15 mg PO QPM [facility] Last Admin: 01/19/20 22:48 Dose: 15 mg Ondansetron HCl (Zofran) 4 mg IV Q4H PRN PRN Reason: Nausea/Vomiting Pantoprazole Sodium (Protonix) 40 mg PO BID [facility] Last Admin: 06/12/19 08:56 Dose: 40 mg Quetiapine Fumarate (Seroquel) 50 mg PO QPM [facility] Last Admin: 06/11/19 22:50 Dose: 50 mg Sodium Chloride (Saline Flush) 10 ml FLUSH ASDIRECTED PRN PRN Reason: Keep Vein Open Last Admin: 06/11/19 15:35 Dose: 10 ml Discontinued Medications Acetaminophen (Tylenol) 975 mg PO NOW ONE Stop: 06/11/19 19:12 Last Admin: 06/11/19 19:17 Dose: 975 mg Hydromorphone HCl (Dilaudid) 0.25 mg IVPUSH ONETIME ONE Stop: 06/11/19 15:29 Last Admin: 06/11/19 15:43 Dose: 0.25 mg Sodium Chloride (Normal Saline) 1,000 mls @ 150 mls/hr IV ASDIRECTED [facility] Last Admin: 06/11/19 15:45 Dose: 150 mls/hr Magnesium Sulfate 4 gm/ Premix 50 mls @ 12.5 mls/hr IV ONETIME ONE Stop: 06/12/19 12:12 Last Admin: 06/12/19 08:50 Dose: 12.5 mls/hr Ondansetron HCl (Zofran) 4 mg IVPUSH ONETIME ONE Stop: 06/11/19 15:30 Last Admin: 06/11/19 15:40 Dose: 4 mg - Exam General: Alert HEENT: Pupils Equal, Mucous Membr. Moist/[place] Neck: Supple Lungs: Clear to Auscultation, Normal Respiratory Effort Cardiovascular: Regular Rate, Regular Rhythm GI/Abdominal Exam: Normal Bowel Sounds, Non-Tender, No Organomegaly, No Distention Extremities: Normal Inspection, Normal Range of Motion, Non-Tender, No Pedal Edema Skin: Warm, Dry, Intact Psy/Mental Status: Alert, Normal Affect, Normal Mood Sepsis Event Note - Evaluation Sepsis Screening Result: No Definite Risk - Focused Exam Vital Signs: Vital Signs Temp Pulse Resp BP Pulse Ox 06/12/19 08:53 97.9 F 56 L 18 127/49 L 96 06/12/19 08:51 62 127/49 L 06/12/19 05:32 98.2 F 60 14 143/59 H 98 Date Exam was Performed: 06/12/19 Time Exam was Performed: 15:23 - Problem List Review Problem List Initiated/Reviewed/Updated: Yes - My Orders Last 24 Hours: My Active Orders 06/11/19 18:00 Mirtazapine [Remeron] 15 mg PO QPM 06/11/19 19:00 QUEtiapine [SEROqueL] 50 mg PO QPM 06/11/19 21:00 LORazepam [Ativan] 1 mg PO BEDTIME 06/11/19 21:07 Oxygen Therapy [RC] PRN Up With Assistance [RC] ASDIRECTED VTE/DVT Education [RC] BID Vital Signs [RC] Q4HR Acetaminophen [Tylenol] 650 mg PO Q4H PRN HYDROmorphone [Dilaudid] 0.25 mg IVPUSH Q2H PRN Ondansetron [Zofran] 4 mg IV Q4H PRN Resuscitation Status Routine 06/11/19 21:08 Sequential Compression Device [OM.PC] Per Unit Routine 06/11/19 21:09 Antiembolic Devices [RC] BID OT Evaluation and Treatment [CONS] Routine PT Evaluation and Treatment [CONS] Routine 06/11/19 21:10 Blood Glucose Check, Bedside [RC] QIDACANDBED 06/11/19 22:00 Insulin Lispro [HumaLOG] See Protocol SUBCUT QIDACANDBED 06/11/19 22:04 Weight bearing status [OM.PC] Routine 06/11/19 22:15 carBAMazepine [TEGretol Tab] 200 mg PO BID carvediloL [Coreg] 3.125 mg PO DAILY 06/11/19 23:15 Sodium Chloride 0.9% [Normal Saline] 1,000 ml IV ASDIRECTED 06/12/19 09:00 Aspirin [Halfprin] 81 mg PO DAILY Cholestyramine/Sucrose [Cholestyramine Packet] 4 gm PO DAILY Levothyroxine [Synthroid] 50 mcg PO DAILY Pantoprazole [ProTONIX] 40 mg PO BID 06/12/19 12:26 Consult to Dietary [Consult to [employer]er [employer]ender] [CONS] Routine 06/12/19 18:00 Donepezil [Aricept] 10 mg PO QPM Midodrine 2.5 mg PO QPM 06/12/19 Breakfast ADA Diabetic [[employer] Diet] [DIET] - Plan Plan:: Assessment * Nondisplaced left iliac wing fracture * Emergency room provider consulted orthopedics in Dr. Yuri Murray, who recommended weightbearing as tolerated. * Nonsurgical * He requires a 2 assist to help with ambulation and toileting. * Patient required Dilaudid in the emergency room for pain control. * Stage III chronic renal insufficiency with acute renal injury * BUN 37, creatinine 1.9, estimated GFR 34 * Metabolic acidosis * Anion gap 18-->16 * Likely secondary to dehydration and poor oral intake. * Poor oral intake is presumably secondary to inability to walk and get to nutrition. * Mild protein malnutrition/dehydration/failure to thrive * Albumin 3.1-->2.5, BUN/creatinine ratio 20-->18 * Worsening protein malnutrition with lowering albumin after rehydration * Anemia * GI bleed last month * Hemoglobin increased from discharge. 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 * PT and OT * Pain management with IV pain medications secondary to severe pain. No NSAIDs secondary to recent GI bleed. * Continue IV fluids cautiously to help correct metabolic acidosis and dehydration. * Reconcile home meds. * Dietary consult secondary to malnutrition and diabetes * VTE prophylaxis with SCDs * CODE STATUS: DNR/DNI * Length of stay anticipated to be 3 to 4 days.
[2019-06-12] MEDS: QUEtiapine 100 MG Tab PO SCH (17:18)
[2019-06-12] MEDS: Midodrine 5 MG Tab PO SCH (17:19)
[2019-06-12] MEDS: Donepezil 10 MG Tab PO SCH (17:19)
[2019-06-12] MEDS: Mirtazapine 15 MG Tab PO SCH (17:19)
[2019-06-12] MEDS: LORazepam 1 MG Tab PO SCH (20:12)
[2019-06-13] MEDS: carBAMazepine 200 MG Tab PO SCH ×2 (08:42→21:37)
[2019-06-13] MEDS: Levothyroxine 50 MCG Tab PO SCH (08:42)
[2019-06-13] MEDS: Acetaminophen 325 MG Tab PO PRN ×3 (08:43→21:37)
[2019-06-13] MEDS: Cholestyramine/Sucrose Powder 4 GM Packet PO SCH (08:43)
[2019-06-13] MEDS: Carvedilol 3.125 MG Tab PO SCH (08:43)
[2019-06-13] MEDS: Aspirin 81 MG Tab.EC PO SCH (08:43)
[2019-06-13] MEDS: Pantoprazole 40 MG Tab.CR PO SCH ×2 (08:43→21:37)
[2019-06-13] MEDS: Insulin Lispro 100 Units/ML 3 ML Vial SUBCUT SCH ×4 (08:46→21:38)
--- NOTE | 2019-06-13 08:55 | PCM.PN ---
- General Info Date of Service: 06/13/19 Admission Dx/Problem (Free Text): Admission Diagnosis/Problem Admission Diagnosis/Problem Closed fracture of iliac crest Functional Status: Reports: Pain Controlled (for the most), Tolerating Diet, Urinating. Denies: Ambulating, New Symptoms - Review of Systems General: Reports: No Symptoms. Denies: Fever, Weakness, Fatigue, Malaise, Chills HEENT: Reports: No Symptoms. Denies: Headaches, Sore Throat Pulmonary: Reports: No Symptoms. Denies: Shortness of Breath, Cough, Sputum, Wheezing Cardiovascular: Reports: No Symptoms. Denies: Chest Pain, Palpitations, Edema Gastrointestinal: Reports: No Symptoms. Denies: Abdominal Pain, Constipation, Diarrhea, Nausea, Vomiting Genitourinary: Reports: No Symptoms. Denies: Pain Musculoskeletal: Reports: Leg Pain (left ) Skin: Reports: No Symptoms. Denies: Cyanosis Neurological: Reports: Difficulty Walking, Gait Disturbance Psychiatric: Reports: No Symptoms - Patient Data Vitals - Most Recent: Last Vital Signs Temp 98.1 F 06/13/19 04:47 Pulse 68 06/13/19 08:43 Resp 18 06/13/19 04:47 BP 117/83 06/13/19 08:43 Pulse Ox 97 06/13/19 04:47 Weight - Most Recent: 150 lb 6.4 oz I&O - Last 24 Hours: Intake & Output 06/12/19 06/13/19 06/13/19 22:59 06:59 14:59 Intake Total 1247 894 Output Total 650 Balance 597 894 Lab Results Last 24 Hours: Laboratory Results - last 24 hr 06/12/19 06/12/19 06/12/19 Range/Units 12:35 17:18 20:07 WBC (4.23-9.07) K/mm3 RBC (4.63-6.08) M/mm3 Hgb (13.7-17.5) gm/dl Hct (40.1-51.0) % MCV (79.0-92.2) fl MCH (25.7-32.2) pg MCHC (32.2-35.5) g/dl RDW Std Deviation (35.1-43.9) fL Plt Count (163-337) K/mm3 MPV (9.4-12.3) fl Neut % (Auto) (34.0-67.9) % Lymph % (Auto) (21.8-53.1) % Stephenson % (Auto) (5.3-12.2) % Eos % (Auto) (0.8-7.0) Baso % (Auto) (0.1-1.2) % Neut # (Auto) (1.78-5.38) K/mm3 Lymph # (Auto) (1.32-3.57) K/mm3 Stephenson # (Auto) (0.30-0.82) K/mm3 Eos # (Auto) (0.04-0.54) K/mm3 Baso # (Auto) (0.01-0.08) K/mm3 POC Glucose 165 H 156 H 186 H (83-110) mg/dL 06/13/19 06/13/19 Range/Units 07:08 08:20 WBC 5.42 (4.23-9.07) K/mm3 RBC 3.27 L (4.63-6.08) M/mm3 Hgb 9.5 L (13.7-17.5) gm/dl Hct 30.4 L (40.1-51.0) % MCV 93.0 H (79.0-92.2) fl MCH 29.1 (25.7-32.2) pg MCHC 31.3 L (32.2-35.5) g/dl RDW Std Deviation 46.3 H (35.1-43.9) fL Plt Count 197 (163-337) K/mm3 MPV 8.9 L (9.4-12.3) fl Neut % (Auto) 72.5 H (34.0-67.9) % Lymph % (Auto) 13.3 L (21.8-53.1) % Stephenson % (Auto) 11.6 (5.3-12.2) % Eos % (Auto) 2.4 (0.8-7.0) Baso % (Auto) 0.2 (0.1-1.2) % Neut # (Auto) 3.93 (1.78-5.38) K/mm3 Lymph # (Auto) 0.72 L (1.32-3.57) K/mm3 Stephenson # (Auto) 0.63 (0.30-0.82) K/mm3 Eos # (Auto) 0.13 (0.04-0.54) K/mm3 Baso # (Auto) 0.01 (0.01-0.08) K/mm3 POC Glucose 152 H (83-110) mg/dL Med Orders - Current: Current Medications Acetaminophen (Tylenol) 650 mg PO Q4H PRN PRN Reason: Pain (Mild 1-3)/fever Last Admin: 06/13/19 08:43 Dose: 650 mg Aspirin (Halfprin) 81 mg PO DAILY [facility] Last Admin: 06/13/19 08:43 Dose: 81 mg Carbamazepine (Tegretol Tab) 200 mg PO BID [facility] Last Admin: 06/13/19 08:42 Dose: 200 mg Carvedilol (Coreg) 3.125 mg PO DAILY [facility] Last Admin: 06/13/19 08:43 Dose: 3.125 mg Cholestyramine Resin (Cholestyramine Packet) 4 gm PO DAILY [facility] Last Admin: 06/13/19 08:43 Dose: 4 gm Donepezil HCl (Aricept) 10 mg PO QPM [facility] Last Admin: 06/12/19 17:19 Dose: 10 mg Hydromorphone HCl (Dilaudid) 0.25 mg IVPUSH Q2H PRN PRN Reason: Pain (severe 7-10) Insulin Human Lispro (Humalog) 0 unit SUBCUT QIDACANDBED [facility]; Protocol Last Admin: 06/13/19 08:46 Dose: 1 unit Levothyroxine Sodium (Synthroid) 50 mcg PO DAILY [facility] Last Admin: 06/13/19 08:42 Dose: 50 mcg Lorazepam (Ativan) 1 mg PO BEDTIME [facility] Last Admin: 06/12/19 20:12 Dose: 1 mg Midodrine (Midodrine) 2.5 mg PO QPM [facility] Last Admin: 06/12/19 17:19 Dose: 2.5 mg Mirtazapine (Remeron) 15 mg PO QPM [facility] Last Admin: 06/12/19 17:19 Dose: 15 mg Ondansetron HCl (Zofran) 4 mg IV Q4H PRN PRN Reason: Nausea/Vomiting Pantoprazole Sodium (Protonix) 40 mg PO BID [facility] Last Admin: 06/13/19 08:43 Dose: 40 mg Quetiapine Fumarate (Seroquel) 50 mg PO QPM [facility] Last Admin: 06/12/19 17:18 Dose: 50 mg Sodium Chloride (Saline Flush) 10 ml FLUSH ASDIRECTED PRN PRN Reason: Keep Vein Open Last Admin: 06/11/19 15:35 Dose: 10 ml Discontinued Medications Acetaminophen (Tylenol) 975 mg PO NOW ONE Stop: 06/11/19 19:12 Last Admin: 06/11/19 19:17 Dose: 975 mg Hydromorphone HCl (Dilaudid) 0.25 mg IVPUSH ONETIME ONE Stop: 06/11/19 15:29 Last Admin: 06/11/19 15:43 Dose: 0.25 mg Sodium Chloride (Normal Saline) 1,000 mls @ 150 mls/hr IV ASDIRECTED [facility] Last Admin: 06/11/19 15:45 Dose: 150 mls/hr Sodium Chloride (Normal Saline) 1,000 mls @ 50 mls/hr IV ASDIRECTED [facility] Last Admin: 06/12/19 21:16 Dose: 50 mls/hr Magnesium Sulfate 4 gm/ Premix 50 mls @ 12.5 mls/hr IV ONETIME ONE Stop: 06/12/19 12:12 Last Admin: 06/12/19 08:50 Dose: 12.5 mls/hr Influenza Virus Vaccine (Fluzone High-Dose Syringe) 180 mcg IM .ONCE ONE Stop: 06/13/19 08:31 Ondansetron HCl (Zofran) 4 mg IVPUSH ONETIME ONE Stop: 06/11/19 15:30 Last Admin: 06/11/19 15:40 Dose: 4 mg - Exam Quality Assessment: DVT Prophylaxis. No: Supplemental Oxygen General: Alert, Oriented, Cooperative, No Acute Distress HEENT: Pupils Equal, Pupils Reactive, Mucous Membr. Moist/[place] Neck: Supple, Trachea Midline Lungs: Clear to Auscultation, Normal Respiratory Effort Cardiovascular: Regular Rate, Regular Rhythm GI/Abdominal Exam: Normal Bowel Sounds, Soft, Non-Tender, No Distention, No Abnormal Bruit (Male) Exam: Deferred Back Exam: Normal Inspection, Full Range of Motion Extremities: Normal Inspection, No Pedal Edema, Normal Capillary Refill, Limited Range of Motion (2/2 pain ) Skin: Warm, Dry, Intact Neurological: No New Focal Deficit Psy/Mental Status: Alert Sepsis Event Note - Evaluation Sepsis Screening Result: No Definite Risk - Focused Exam Vital Signs: Vital Signs Temp Pulse Resp BP Pulse Ox 06/13/19 08:43 68 117/83 06/13/19 04:47 98.1 F 61 18 168/57 H 97 Date Exam was Performed: 06/13/19 Time Exam was Performed: 14:56 - Problem List & Annotations (1) Fracture of left iliac wing SNOMED Code(s): 904365792 Code(s): S32.302A - UNSP FRACTURE OF LEFT ILIUM, INIT ENCNTR FOR CLOSED FRACTURE Status: Acute Priority: High Current Visit: Yes Qualifiers: Encounter type: initial encounter Fracture type: closed Qualified Code(s) : S32.302A - Unspecified fracture of left ilium, initial encounter for closed fracture (2) COPD (chronic obstructive pulmonary disease) SNOMED Code(s): 20402857 Code(s): J44.9 - CHRONIC OBSTRUCTIVE PULMONARY DISEASE, UNSPECIFIED Status : Chronic Priority: Medium Current Visit: No Qualifiers: COPD type: unspecified COPD Qualified Code(s): J44.9 - Chronic obstructive pulmonary disease, unspecified (3) Chronic orthostatic hypotension SNOMED Code(s): 79853110 Code(s): I95.1 - ORTHOSTATIC HYPOTENSION Status: Chronic Priority: Medium Current Visit: No (4) Dementia SNOMED Code(s): 16288343 Code(s): F03.90 - UNSPECIFIED DEMENTIA WITHOUT BEHAVIORAL DISTURBANCE Status: Chronic Priority: Medium Current Visit: No Qualifiers: Dementia type: unspecified type Dementia behavioral disturbance: without behavioral disturbance Qualified Code(s): F03.90 - Unspecified dementia without behavioral disturbance (5) Diabetes mellitus SNOMED Code(s): 64264832 Code(s): E11.9 - TYPE 2 DIABETES MELLITUS WITHOUT COMPLICATIONS Status: Chronic Priority: Medium Current Visit: No Qualifiers: Diabetes mellitus type: other specified (including CESAR) Diabetes mellitus parts counterman insulin use: unspecified skilled nursing insulin use status Diabetes mellitus complication status: with other specified complication Qualified Code (s): E13.69 - Other specified diabetes mellitus with other specified complication (6) Former smoker SNOMED Code(s): 6103107 Code(s): Z87.891 - PERSONAL HISTORY OF NICOTINE DEPENDENCE Status: Chronic Priority: Medium Current Visit: No (7) Hypertension SNOMED Code(s): 29217392 Code(s): I10 - ESSENTIAL (PRIMARY) HYPERTENSION Status: Chronic Priority : Low Current Visit: No Qualifiers: Hypertension type: unspecified Qualified Code(s): I10 - Essential (primary ) hypertension (8) Hypothyroidism SNOMED Code(s): 57322504 Code(s): E03.9 - HYPOTHYROIDISM, UNSPECIFIED Status: Chronic Priority: Low Current Visit: No Qualifiers: Hypothyroidism type: unspecified Qualified Code(s): E03.9 - Hypothyroidism , unspecified (9) Mitral regurgitation SNOMED Code(s): 76262525 Code(s): I34.0 - NONRHEUMATIC MITRAL (VALVE) INSUFFICIENCY Status: Acute Current Visit: No (10) Peripheral neuropathy SNOMED Code(s): 806616505 Code(s): G62.9 - POLYNEUROPATHY, UNSPECIFIED Status: Chronic Priority: Medium Current Visit: No Qualifiers: Peripheral neuropathy type: polyneuropathy, unspecified Qualified Code(s): G62.9 - Polyneuropathy, unspecified (11) History of GI bleed SNOMED Code(s): 150999978 Code(s): Z87.19 - PERSONAL HISTORY OF OTHER DISEASES OF THE DIGESTIVE SYSTEM Status: Chronic Priority: Medium Current Visit: No - Problem List Review Problem List Initiated/Reviewed/Updated: Yes - Plan Plan:: Assessment * Nondisplaced left iliac wing fracture * Emergency room provider consulted orthopedics in [place], Dr. Welch, who recommended weightbearing as tolerated. * Nonsurgical * He requires a 2 assist to help with ambulation and toileting. * Patient required Dilaudid in the emergency room for pain control. * Stage III chronic renal insufficiency with acute renal injury, improving * BUN 37-->30, creatinine 1.9-->1.4, estimated GFR 34-->49 * Metabolic acidosis, resolved * Anion gap 18-->16-->14.1 * Likely secondary to dehydration and poor oral intake. * Poor oral intake is presumably secondary to inability to walk and get to nutrition. * Mild protein malnutrition/dehydration/failure to thrive * Albumin 3.1-->2.5-->3.0, BUN/creatinine ratio 20-->18 * Worsening protein malnutrition with lowering albumin after rehydration * Anemia, stable * GI bleed last month * Hemoglobin increased from discharge. 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 * PT and OT * IS * Pain management with IV pain medications secondary to severe pain. No NSAIDs secondary to recent GI bleed. * Continue IV fluids cautiously to help correct metabolic acidosis and dehydration. * Reconciled home meds. * Dietary consult secondary to malnutrition and diabetes * VTE prophylaxis with SCDs * CODE STATUS: DNR/DNI * Length of stay: anticipated discharge tomorrow to [facility].
[2019-06-13] MEDS: Donepezil 10 MG Tab PO SCH (17:36)
[2019-06-13] MEDS: Mirtazapine 15 MG Tab PO SCH (17:36)
[2019-06-13] MEDS: QUEtiapine 100 MG Tab PO SCH (17:37)
[2019-06-13] MEDS: Midodrine 5 MG Tab PO SCH (17:37)
[2019-06-13] MEDS: LORazepam 1 MG Tab PO SCH (21:37)
--- NOTE | 2019-06-14 07:50 | PCM.DCSUM1 ---
Discharge Summary - Hospital Course HPI Initial Comments: 78-year-old male with dementia and a poor historian presents to the emergency room via EMS with complaints of left hip pain after falling approximately 1:00 this morning. Because of his dementia and the family members that are present during the interview not being present during the fall history is obtained through family and through emergency room providers notes. It is believed that he was ambulating with his walker at around 1:00 in the morning and he fell. He has been complaining of severe pain since that time. He lives in a home with a caregiver. Pain is mild at rest, but is unable to walk without 2 person assist. He is unable to toilet himself or do any activities of daily living. It appears the patient has had multiple falls recently. He was admitted last month secondary to a GI bleed. He has a left great toe amputation approximately 4 months ago. Family believes it secondary to diabetes. CT of the pelvis showed nondisplaced left iliac wing fracture. In the emergency room patient required Dilaudid and Zofran secondary to pain and nausea. He was unable to ambulate on his own. Labs WBC 6.68, hemoglobin 9.8, platelet count 188, sodium 140, potassium 4.8, chloride 106, carbon dioxide 21, anion gap 17.8, BUN 37, creatinine 1.9, glucose 132 Diagnosis: Stroke: No - Discharge Data Discharge Date: 06/14/19 (Admit date: 06/11/19) Discharge Disposition: DC/Tfer to SNF 03 Condition: Stable - Referral to Home Health Primary Care Physician: PCP None - Discharge Diagnosis/Problem(s) (1) Fracture of left iliac wing SNOMED Code(s): 441277884 ICD Code: S32.302A - UNSP FRACTURE OF LEFT ILIUM, INIT ENCNTR FOR CLOSED FRACTURE Status: Acute Priority: High Qualifiers: Encounter type: initial encounter Fracture type: closed Qualified Code(s) : S32.302A - Unspecified fracture of left ilium, initial encounter for closed fracture (2) COPD (chronic obstructive pulmonary disease) SNOMED Code(s): 87345039 ICD Code: J44.9 - CHRONIC OBSTRUCTIVE PULMONARY DISEASE, UNSPECIFIED Status : Chronic Priority: Medium Qualifiers: COPD type: unspecified COPD Qualified Code(s): J44.9 - Chronic obstructive pulmonary disease, unspecified (3) Chronic orthostatic hypotension SNOMED Code(s): 97926755 ICD Code: I95.1 - ORTHOSTATIC HYPOTENSION Status: Chronic Priority: Medium (4) Dementia SNOMED Code(s): 35796143 ICD Code: F03.90 - UNSPECIFIED DEMENTIA WITHOUT BEHAVIORAL DISTURBANCE Status: Chronic Priority: Medium Qualifiers: Dementia type: unspecified type Dementia behavioral disturbance: without behavioral disturbance Qualified Code(s): F03.90 - Unspecified dementia without behavioral disturbance (5) Diabetes mellitus SNOMED Code(s): 25286616 ICD Code: E11.9 - TYPE 2 DIABETES MELLITUS WITHOUT COMPLICATIONS Status: Chronic Priority: Medium Qualifiers: Diabetes mellitus type: other specified (including CESAR) Diabetes mellitus nursing home insulin use: unspecified nursing home insulin use status Diabetes mellitus complication status: with other specified complication Qualified Code (s): E13.69 - Other specified diabetes mellitus with other specified complication (6) Former smoker SNOMED Code(s): 3460971 ICD Code: Z87.891 - PERSONAL HISTORY OF NICOTINE DEPENDENCE Status: Chronic Priority: Medium (7) Hypertension SNOMED Code(s): 46217441 ICD Code: I10 - ESSENTIAL (PRIMARY) HYPERTENSION Status: Chronic Priority : Low Qualifiers: Hypertension type: unspecified Qualified Code(s): I10 - Essential (primary ) hypertension (8) Hypothyroidism SNOMED Code(s): 61016918 ICD Code: E03.9 - HYPOTHYROIDISM, UNSPECIFIED Status: Chronic Priority: Low Qualifiers: Hypothyroidism type: unspecified Qualified Code(s): E03.9 - Hypothyroidism , unspecified (9) Mitral regurgitation SNOMED Code(s): 44428485 ICD Code: I34.0 - NONRHEUMATIC MITRAL (VALVE) INSUFFICIENCY Status: Acute (10) Peripheral neuropathy SNOMED Code(s): 781524335 ICD Code: G62.9 - POLYNEUROPATHY, UNSPECIFIED Status: Chronic Priority: Medium Qualifiers: Peripheral neuropathy type: polyneuropathy, unspecified Qualified Code(s): G62.9 - Polyneuropathy, unspecified (11) History of GI bleed SNOMED Code(s): 620680791 ICD Code: Z87.19 - PERSONAL HISTORY OF OTHER DISEASES OF THE DIGESTIVE SYSTEM Status: Chronic Priority: Medium - Patient Summary/Data Consults: Consultations 06/11/19 21:09 OT Evaluation and Treatment [CONS] Routine PT Evaluation and Treatment [CONS] Routine 06/12/19 12:26 Consult to Dietary [Consult to Rn Peritoneal Dialysis] [CONS] Routine Labs Pending at D/C: None Recommended Follow-up Testing/Procedures: Follow-up with PCP within 7-10 days of discharge. Follow-up with Orthopedics within 10-14 days of discharge. Hospital Course: Mio was admitted after a fall which resulted in a nondisplaced left iliac wing fracture, with no sacral fracture seen. ED provider did speak with orthopedist in [place], Dr. Welch, who advised that the patient should weight-bear as tolerated and be admitted for pain control. It was revealed in the ED note that the patient has been falling multiple times at home. On the floor he was noted to have a metabolic acidosis with a elevated anion gap. This did resolve prior to discharge. Renal function remained stable. He was noted to have anemia and prior notes indicate a GI bleed 1 month ago. Hemoglobin did fluctuate but improved prior to discharge. He did see our physical therapy and Occupational Therapy and they recommended [facility] placement. Pain was controlled using Tylenol. He was placed in the [place] [facility] with the assistance of social work. He was discharged today. Home medications were continued. His only new medication was Tylenol as needed for pain. He should continue PT/OT at the [facility]. Instructed to follow-up with his primary care provider within 5 to 7 days of discharge. 1 to 10 days of discharge. As noted he is full weightbearing as tolerated. He should follow-up with orthopedics within 10 to 14 days. Recommend recheck CBC, CMP, and magnesium at primary care provider appointment. He was discharged today. - Patient Instructions Diet: Diabetic Diet Activity: As Tolerated, Full Weight Bearing Driving: Do Not Drive Notify Provider of: Fever, Increased Pain, Nausea and/or Vomiting Other/Special Instructions: Follow-up with primary care provider within 7-10 days of discharge, sooner if needed. Full weight bearing as tolerated per ortho. Follow-up with orthopedics clare 10-14 days of discharge. Resume home medications as indicated. Tylenol PRN for pain. Should symtpoms return or worsen, contact primary care provider or return to the Emergency department. - Discharge Plan *PRESCRIPTION DRUG MONITORING PROGRAM REVIEWED*: No *COPY OF PRESCRIPTION DRUG MONITORING REPORT IN PATIENT KAITY: No Prescriptions/Med Rec: Acetaminophen [Tylenol] 650 mg PO Q4H PRN #40 tablet PRN Reason: Pain (Mild 1-3)/fever Home Medications: Home Meds Aspirin [Ecotrin EC] 81 mg PO DAILY 05/06/19 [History] Donepezil HCl [Aricept] 10 mg PO QPM 05/06/19 [History] Levothyroxine [Synthroid] 50 mcg PO DAILY 05/06/19 [History] Midodrine 2.5 mg PO QPM 05/06/19 [History] Mirtazapine 15 mg PO QPM 05/06/19 [History] Multivit-Min/FA/Lycopen/Lutein [Centrum Silver Ultra Men's] 1 tab PO DAILY 05/06 [History] QUEtiapine [SEROquel] 50 mg PO QPM 05/06/19 [History] Turmeric Root Extract [Turmeric] 500 mg PO DAILY 05/06/19 [History] carBAMazepine [Carbamazepine] 200 mg PO BID 05/06/19 [History] Pantoprazole Sodium 40 mg PO BID #60 tablet.dr 05/08/19 [Rx] carvediloL [Coreg] 3.125 mg PO DAILY #30 tablet 05/08/19 [Rx] Acetaminophen/Diphenhydramine [Tylenol Pm Ex-Strength Caplet] 25 - 500 mg PO BEDTIME PRN 06/11/19 [History] Cholestyramine/Sucrose [Cholestyramine] 4 gram PO DAILY 06/11/19 [History] LORazepam [Ativan] 1 mg PO BEDTIME 06/11/19 [History] Acetaminophen [Tylenol] 650 mg PO Q4H PRN #40 tablet 06/14/19 [Rx] Oxygen Therapy Mode: Room Air Patient Handouts: Simple Pelvic Fracture, Adult, Heart Failure Referrals: PCP,None [Primary Care Provider] - (please schedule a follow up appointment with whomever is going to be Mio's primary care provider at [place] within 14 days.) - Discharge Summary/Plan Comment DC Time >30 min.: Yes (45 mins ) - General Info Date of Service: 06/14/19 Admission Dx/Problem (Free Text: Admission Diagnosis/Problem Admission Diagnosis/Problem Closed fracture of iliac crest Functional Status: Reports: Pain Controlled, Tolerating Diet, Urinating, Incentive Spirometry. Denies: Ambulating, New Symptoms - Review of Systems General: Reports: Weakness. Denies: Fever, Fatigue, Malaise, Chills HEENT: Reports: No Symptoms. Denies: Headaches, Sore Throat Pulmonary: Reports: No Symptoms. Denies: Shortness of Breath, Cough, Wheezing Cardiovascular: Reports: No Symptoms. Denies: Chest Pain, Palpitations, Dyspnea on Exertion Gastrointestinal: Reports: No Symptoms. Denies: Abdominal Pain, Constipation, Diarrhea, Nausea, Vomiting Genitourinary: Reports: No Symptoms. Denies: Pain Musculoskeletal: Reports: Back Pain (chronic), Leg Pain (left ) Skin: Reports: No Symptoms. Denies: Cyanosis Neurological: Reports: Difficulty Walking, Gait Disturbance Psychiatric: Reports: No Symptoms - Patient Data Vitals - Most Recent: Last Vital Signs Temp 98.4 F 06/13/19 20:14 Pulse 66 06/13/19 20:38 Resp 17 06/13/19 20:38 BP 148/54 H 06/13/19 20:53 Pulse Ox 96 06/13/19 20:38 Weight - Most Recent: 150 lb 6.4 oz I&O - Last 24 hours: Intake & Output 06/13/19 06/14/19 06/14/19 22:59 06:59 14:59 Intake Total 240 Balance 240 Lab Results - Last 24 hrs: Laboratory Results - last 24 hr 06/13/19 06/13/19 06/13/19 Range/Units 08:20 08:20 08:30 WBC 5.42 (4.23-9.07) K/mm3 RBC 3.27 L (4.63-6.08) M/mm3 Hgb 9.5 L (13.7-17.5) gm/dl Hct 30.4 L (40.1-51.0) % MCV 93.0 H (79.0-92.2) fl MCH 29.1 (25.7-32.2) pg MCHC 31.3 L (32.2-35.5) g/dl RDW Std Deviation 46.3 H (35.1-43.9) fL Plt Count 197 (163-337) K/mm3 MPV 8.9 L (9.4-12.3) fl Neut % (Auto) 72.5 H (34.0-67.9) % Lymph % (Auto) 13.3 L (21.8-53.1) % [place] % (Auto) 11.6 (5.3-12.2) % Eos % (Auto) 2.4 (0.8-7.0) Baso % (Auto) 0.2 (0.1-1.2) % Neut # (Auto) 3.93 (1.78-5.38) K/mm3 Lymph # (Auto) 0.72 L (1.32-3.57) K/mm3 [place] # (Auto) 0.63 (0.30-0.82) K/mm3 Eos # (Auto) 0.13 (0.04-0.54) K/mm3 Baso # (Auto) 0.01 (0.01-0.08) K/mm3 Sodium 138 (136-145) mEq/L Potassium 4.1 (3.5-5.1) mEq/L Chloride 104 (98-107) mEq/L Carbon Dioxide 24 (21-32) mEq/L Anion Gap 14.1 (5-15) BUN 30 H (7-18) mg/dL Creatinine 1.4 H (0.7-1.3) mg/dL Est Cr Clr Drug Dosing 41.28 mL/min Estimated GFR (MDRD) 49 (>60) mL/min BUN/Creatinine Ratio 21.4 H (14-18) Glucose 166 H (83-115) mg/dL POC Glucose (83-110) mg/dL Calcium 8.5 (8.5-10.1) mg/dL Magnesium 2.0 (1.8-2.4) mg/dl Total Bilirubin 0.3 (0.2-1.0) mg/dL AST 30 (15-37) U/L ALT 38 (16-63) U/L Alkaline Phosphatase 119 H (46-116) U/L Total Protein 6.5 (6.4-8.2) g/dl Albumin 3.0 L (3.4-5.0) g/dl Globulin 3.5 gm/dL Albumin/Globulin Ratio 0.9 L (1-2) MRSA (PCR) Negative 06/13/19 06/13/19 06/13/19 Range/Units 10:58 11:31 17:13 WBC (4.23-9.07) K/mm3 RBC (4.63-6.08) M/mm3 Hgb (13.7-17.5) gm/dl Hct (40.1-51.0) % MCV (79.0-92.2) fl MCH (25.7-32.2) pg MCHC (32.2-35.5) g/dl RDW Std Deviation (35.1-43.9) fL Plt Count (163-337) K/mm3 MPV (9.4-12.3) fl Neut % (Auto) (34.0-67.9) % Lymph % (Auto) (21.8-53.1) % [place] % (Auto) (5.3-12.2) % Eos % (Auto) (0.8-7.0) Baso % (Auto) (0.1-1.2) % Neut # (Auto) (1.78-5.38) K/mm3 Lymph # (Auto) (1.32-3.57) K/mm3 [place] # (Auto) (0.30-0.82) K/mm3 Eos # (Auto) (0.04-0.54) K/mm3 Baso # (Auto) (0.01-0.08) K/mm3 Sodium (136-145) mEq/L Potassium (3.5-5.1) mEq/L Chloride (98-107) mEq/L Carbon Dioxide (21-32) mEq/L Anion Gap (5-15) BUN (7-18) mg/dL Creatinine (0.7-1.3) mg/dL Est Cr Clr Drug Dosing mL/min Estimated GFR (MDRD) (>60) mL/min BUN/Creatinine Ratio (14-18) Glucose (83-115) mg/dL POC Glucose 170 H 178 H 156 H (83-110) mg/dL Calcium (8.5-10.1) mg/dL Magnesium (1.8-2.4) mg/dl Total Bilirubin (0.2-1.0) mg/dL AST (15-37) U/L ALT (16-63) U/L Alkaline Phosphatase (46-116) U/L Total Protein (6.4-8.2) g/dl Albumin (3.4-5.0) g/dl Globulin gm/dL Albumin/Globulin Ratio (1-2) MRSA (PCR) 06/13/19 06/14/19 Range/Units 21:35 06:08 WBC (4.23-9.07) K/mm3 RBC (4.63-6.08) M/mm3 Hgb (13.7-17.5) gm/dl Hct (40.1-51.0) % MCV (79.0-92.2) fl MCH (25.7-32.2) pg MCHC (32.2-35.5) g/dl RDW Std Deviation (35.1-43.9) fL Plt Count (163-337) K/mm3 MPV (9.4-12.3) fl Neut % (Auto) (34.0-67.9) % Lymph % (Auto) (21.8-53.1) % [place] % (Auto) (5.3-12.2) % Eos % (Auto) (0.8-7.0) Baso % (Auto) (0.1-1.2) % Neut # (Auto) (1.78-5.38) K/mm3 Lymph # (Auto) (1.32-3.57) K/mm3 [place] # (Auto) (0.30-0.82) K/mm3 Eos # (Auto) (0.04-0.54) K/mm3 Baso # (Auto) (0.01-0.08) K/mm3 Sodium (136-145) mEq/L Potassium (3.5-5.1) mEq/L Chloride (98-107) mEq/L Carbon Dioxide (21-32) mEq/L Anion Gap (5-15) BUN (7-18) mg/dL Creatinine (0.7-1.3) mg/dL Est Cr Clr Drug Dosing mL/min Estimated GFR (MDRD) (>60) mL/min BUN/Creatinine Ratio (14-18) Glucose (83-115) mg/dL POC Glucose 225 H 150 H (83-110) mg/dL Calcium (8.5-10.1) mg/dL Magnesium (1.8-2.4) mg/dl Total Bilirubin (0.2-1.0) mg/dL AST (15-37) U/L ALT (16-63) U/L Alkaline Phosphatase (46-116) U/L Total Protein (6.4-8.2) g/dl Albumin (3.4-5.0) g/dl Globulin gm/dL Albumin/Globulin Ratio (1-2) MRSA (PCR) Med Orders - Current: Current Medications Acetaminophen (Tylenol) 650 mg PO Q4H PRN PRN Reason: Pain (Mild 1-3)/fever Last Admin: 06/13/19 21:37 Dose: 650 mg Aspirin (Halfprin) 81 mg PO DAILY [facility] Last Admin: 06/13/19 08:43 Dose: 81 mg Carbamazepine (Tegretol Tab) 200 mg PO BID [facility] Last Admin: 06/13/19 21:37 Dose: 200 mg Carvedilol (Coreg) 3.125 mg PO DAILY [facility] Last Admin: 06/13/19 08:43 Dose: 3.125 mg Cholestyramine Resin (Cholestyramine Packet) 4 gm PO DAILY [facility] Last Admin: 06/13/19 08:43 Dose: 4 gm Donepezil HCl (Aricept) 10 mg PO QPM [facility] Last Admin: 06/13/19 17:36 Dose: 10 mg Hydromorphone HCl (Dilaudid) 0.25 mg IVPUSH Q2H PRN PRN Reason: Pain (severe 7-10) Insulin Human Lispro (Humalog) 0 unit SUBCUT QIDACANDBED [facility]; Protocol Last Admin: 06/13/19 21:38 Dose: 2 unit Levothyroxine Sodium (Synthroid) 50 mcg PO DAILY [facility] Last Admin: 06/13/19 08:42 Dose: 50 mcg Lorazepam (Ativan) 1 mg PO BEDTIME [facility] Last Admin: 06/13/19 21:37 Dose: 1 mg Midodrine (Midodrine) 2.5 mg PO QPM [facility] Last Admin: 06/13/19 17:37 Dose: 2.5 mg Mirtazapine (Remeron) 15 mg PO QPM [facility] Last Admin: 06/13/19 17:36 Dose: 15 mg Ondansetron HCl (Zofran) 4 mg IV Q4H PRN PRN Reason: Nausea/Vomiting Pantoprazole Sodium (Protonix) 40 mg PO BID [facility] Last Admin: 06/13/19 21:37 Dose: 40 mg Quetiapine Fumarate (Seroquel) 50 mg PO QPM [facility] Last Admin: 06/13/19 17:37 Dose: 50 mg Sodium Chloride (Saline Flush) 10 ml FLUSH ASDIRECTED PRN PRN Reason: Keep Vein Open Last Admin: 06/11/19 15:35 Dose: 10 ml Discontinued Medications Acetaminophen (Tylenol) 975 mg PO NOW ONE Stop: 06/11/19 19:12 Last Admin: 06/11/19 19:17 Dose: 975 mg Hydromorphone HCl (Dilaudid) 0.25 mg IVPUSH ONETIME ONE Stop: 06/11/19 15:29 Last Admin: 06/11/19 15:43 Dose: 0.25 mg Sodium Chloride (Normal Saline) 1,000 mls @ 150 mls/hr IV ASDIRECTED [facility] Last Admin: 06/11/19 15:45 Dose: 150 mls/hr Sodium Chloride (Normal Saline) 1,000 mls @ 50 mls/hr IV ASDIRECTED [facility] Last Admin: 06/12/19 21:16 Dose: 50 mls/hr Magnesium Sulfate 4 gm/ Premix 50 mls @ 12.5 mls/hr IV ONETIME ONE Stop: 06/12/19 12:12 Last Admin: 06/12/19 08:50 Dose: 12.5 mls/hr Influenza Virus Vaccine (Fluzone High-Dose Syringe) 180 mcg IM .ONCE ONE Stop: 06/13/19 08:31 Ondansetron HCl (Zofran) 4 mg IVPUSH ONETIME ONE Stop: 06/11/19 15:30 Last Admin: 06/11/19 15:40 Dose: 4 mg - Exam Quality Assessment: Reports: DVT Prophylaxis General: Reports: Alert, Cooperative, No Acute Distress HEENT: Reports: Pupils Equal, Pupils Reactive, Mucous Membr. Moist/[place] Neck: Reports: Supple Lungs: Reports: Clear to Auscultation, Normal Respiratory Effort Cardiovascular: Reports: Regular Rate, Regular Rhythm GI/Abdominal Exam: Normal Bowel Sounds, Soft, Non-Tender, No Distention, No Abnormal Bruit (Male) Exam: Deferred Rectal (Males) Exam: Deferred Back Exam: Reports: Normal Inspection, Decreased Range of Motion Extremities: No Pedal Edema, Normal Capillary Refill, Leg Pain (left), Limited Range of Motion Skin: Reports: Warm, Dry, Intact Neurological: Reports: No New Focal Deficit Psy/Mental Status: Reports: Alert
[2019-06-14] MEDS: Carvedilol 3.125 MG Tab PO SCH (08:25)
[2019-06-14] MEDS: carBAMazepine 200 MG Tab PO SCH (08:25)
[2019-06-14] MEDS: Aspirin 81 MG Tab.EC PO SCH (08:25)
[2019-06-14] MEDS: Cholestyramine/Sucrose Powder 4 GM Packet PO SCH (08:27)
[2019-06-14] MEDS: Levothyroxine 50 MCG Tab PO SCH (08:27)
[2019-06-14] MEDS: Pantoprazole 40 MG Tab.CR PO SCH (08:27)
[2019-06-14] MEDS: Insulin Lispro 100 Units/ML 3 ML Vial SUBCUT SCH (08:27)
== END 2019-06-14 10:13 | DRG 536 ==
LOC: JD.ED 15:10 → JD.MS 19:24
PROVIDERS: ADMIT Family Medicine; ATTEND Family Medicine
DX: S32.302A Unspecified fracture of left ilium, initial encounter for closed fracture (principal); W18.30XA Fall on same level, unspecified, initial encounter; Z91.81 History of falling; H54.7 Unspecified visual loss; I50.9 Heart failure, unspecified; E44.1 Mild protein-calorie malnutrition; Z87.19 Personal history of other diseases of the digestive system; Z89.412 Acquired absence of left great toe; E87.2 Acidosis; E11.9 Type 2 diabetes mellitus without complications; J44.9 Chronic obstructive pulmonary disease, unspecified; F03.90 Unspecified dementia, unspecified severity, without behavioral disturbance, psychotic disturbance, mood disturbance, and anxiety; Z66 Do not resuscitate; E03.9 Hypothyroidism, unspecified; I34.0 Nonrheumatic mitral (valve) insufficiency; E11.42 Type 2 diabetes mellitus with diabetic polyneuropathy; N18.3 Chronic kidney disease, stage 3 (moderate); D64.9 Anemia, unspecified; E11.21 Type 2 diabetes mellitus with diabetic nephropathy; E86.0 Dehydration; I12.9 Hypertensive chronic kidney disease with stage 1 through stage 4 chronic kidney disease, or unspecified chronic kidney disease; E11.22 Type 2 diabetes mellitus with diabetic chronic kidney disease; E78.00 Pure hypercholesterolemia, unspecified; Z98.49 Cataract extraction status, unspecified eye; Z79.82 Long term (current) use of aspirin; Z87.891 Personal history of nicotine dependence; Z79.4 Long term (current) use of insulin; Z79.890 Hormone replacement therapy; Z79.899 Other long term (current) drug therapy; W19.XXXA Unspecified fall, initial encounter
CPT/HCPCS: 36415; 72192; 73502; 73700; 80053; 81001; 85025; 93005; 96361; 96374; 96375; 99285; A9270; J1170; J2405; J7030; 82962; 83036; 83735; 84443; 87641; 97110-GO; 97110-GP; 97116-GP; 97161-GP; 97166-GO; 97530-GO; 97530-GP; 97535-GO; 99284; J1815-GY; J3475

== ENCOUNTER 2019-07-27 10:32 | Inpatient (IN) | payer MEDICARE, OTHER ==
[2019-07-27] MEDS ORDERED: DOPamine/Dextrose 5%-Water 400 MG/250 ML BAG IV SCH (10:35)
[2019-07-27] MEDS ORDERED: propofoL 100 ML ONE (10:44)
[2019-07-27] MEDS: Sodium Chloride 0.9% 500 ML IV ONE ×2 (10:54→12:42)
--- NOTE | 2019-07-27 11:08 | EDM.PDOC ---
ED HPI GENERAL MEDICAL PROBLEM - General Stated Complaint: [facility] Time Seen by Provider: 07/27/19 10:32 Source of Information: Reports: EMS, Family (Brother, [id number], nephew - later) History Limitations: Reports: Altered Mental Status - History of Present Illness INITIAL COMMENTS - FREE TEXT/NARRATIVE: Mr. Smith is a 78-year-old gentleman with a past medical history of advanced dementia, who is now brought in by EMS after he was found unresponsive in a vehicle. He responded minimally to a sternal rub. Accu-Chek was 79. Initial BP 168/68. SPO2 80% on room air, up to the 90s on 5 L. His pupils were pinpoint. The patient was given 2 mg of IV Narcan, without change in his condition. On arrival, the patient was receiving oxygen per nasal cannula. A left antecubital fossa IV had been placed. On initial examination, the patient responded minimally to noxious stimuli. The decision was made to intubate the patient for airway protection. The patient was given 40 mg of IV propofol, along with 80 mg of IV succinylcholine. He was then intubated with an 8.0 OETT using a Mac 3 blade, to 24 cm at the incisors. Post intubation, the patient was noted to be bradycardic at 47 bpm. An ECG appears to demonstrate a junctional bradycardia. He was therefore given 1 mg of atropine and started on dopamine at 10 mcg/kg/ min. Review of medical records finds that the patient fell and suffered a left iliac wing fracture on 06/11/2019. He was admitted to this hospital, then subsequently admitted to a senior care. What happened after that, we do not know. The patient's PCP is Dr. Michel Gilbert. It is unknown if he received an influenza vaccine this season. - Related Data Allergies Allergy/AdvReac Type Severity Reaction Status Date / Time No Known Allergies Allergy Verified 05/06/19 12:16 Home Meds: Home Meds Aspirin [Ecotrin EC] 81 mg PO DAILY 05/06/19 [History] Donepezil HCl [Aricept] 10 mg PO QPM 05/06/19 [History] Levothyroxine [Synthroid] 50 mcg PO DAILY 05/06/19 [History] Midodrine 2.5 mg PO QPM 05/06/19 [History] Mirtazapine 15 mg PO QPM 12/14/19 [History] Multivit-Min/FA/Lycopen/Lutein [Centrum Silver Ultra Men's] 1 tab PO DAILY 05/06 [History] QUEtiapine [SEROquel] 50 mg PO QPM 05/06/19 [History] carBAMazepine [Carbamazepine] 200 mg PO BID 05/06/19 [History] Pantoprazole Sodium 40 mg PO BID #60 tablet.dr 05/08/19 [Rx] carvediloL [Coreg] 3.125 mg PO DAILY #30 tablet 05/08/19 [Rx] Acetaminophen/Diphenhydramine [Tylenol Pm Ex-Strength Caplet] 25 - 500 mg PO BEDTIME PRN 06/11/19 [History] Cholestyramine/Sucrose [Cholestyramine] 4 gram PO DAILY 06/11/19 [History] Acetaminophen [Tylenol] 650 mg PO Q4H PRN #40 tablet 06/14/19 [Rx] LORazepam [Ativan] 1 mg PO BEDTIME #1 tablet 06/14/19 [Rx] Past Medical History HEENT History: Reports: Impaired Vision Cardiovascular History: Reports: Heart Failure, High Cholesterol Respiratory History: Reports: COPD Gastrointestinal History: Reports: Diverticulosis (diverticulitis), GI Bleed Neurological History: Reports: Other (See Below) (Advanced dementia) Endocrine/Metabolic History: Reports: Diabetes, Type II, Hypothyroidism - Infectious Disease History Infectious Disease History: Reports: MRSA - Past Surgical History HEENT Surgical History: Reports: Cataract Surgery (bilateral) GI Surgical History: Reports: Colonoscopy Musculoskeletal Surgical History: Reports: Amputation (left great toe) Social & Family History - Family History Family Medical History: Noncontributory - Caffeine Use Caffeine Use: Reports: None ED ROS GENERAL - Review of Systems Review Of Systems: Unable To Obtain Reason Not Obtained: Patient unresponsive - Physical Exam Exam: See Below Exam Limited By: Altered Mental Status General Appearance: Obtunded (moans slightly), Thin Eye Exam: Bilateral Eye: Other (Pupils [place], but s/p cataract surgery) Ears: Normal External Exam Nose: Normal Inspection Throat/Mouth: Normal Inspection, Normal Lips, Normal Teeth, Normal Gums, Normal Oropharynx, No Airway Compromise Head Exam: Atraumatic, Normocephalic Neck: Normal Inspection, Full Range of Motion Respiratory/Chest: No Respiratory Distress, Lungs Clear, Normal Breath Sounds, No Accessory Muscle Use, Chest Non-Tender Cardiovascular: Normal Peripheral Pulses, Regular Rate, Rhythm, No Edema, No Gallop, No JVD, No Murmur, No Rub GI/Abdominal: Normal Bowel Sounds, Soft, Non-Tender, No Organomegaly, No Distention, No Abnormal Bruit, No Mass (Male) Exam: No Hernia, Normal Inspection, Normal Prostate, Circumcised Rectal (Males) Exam: Normal Exam, Normal Rectal Tone, Prostate Normal Neuro Exam (Abbreviated): Alert, Oriented, CN II-XII Intact, Normal Cognition, Normal Gait, Normal Reflexes, No Motor/Sensory Deficits Back Exam: Normal Inspection, Full Range of Motion, NT Extremities: Normal Inspection, Normal Range of Motion, Non-Tender, No Pedal Edema, Normal Capillary Refill Psychiatric: Normal Affect, Normal Mood Skin Exam: Warm, Dry, Intact, Normal Color, No Rash EKG INTERPRETATION EKG Date: 07/27/19 Time: 10:44 Rhythm: Other (Junctional bradycardia) Rate (Beats/Min): 44 [place]: Normal P-Wave: Absent QRS: Normal ST-T: Normal QT: Normal Comparison: Change From Previous EKG (Was in [facility] on 06/11/2019) Course - Vital Signs Last Recorded V/S: Last Vital Signs Temp 35.1 C L 07/27/19 10:32 Pulse 57 L 07/27/19 10:32 Resp 20 07/27/19 10:32 BP 139/66 07/27/19 10:32 Pulse Ox 100 07/27/19 17:54 - Orders/Labs/Meds Orders: Active Orders 24 hr Category Date Time Status Gastrointestinal Tube Mgmt [RC] Q4HR Care 07/27/19 10:45 Active RASS Sedation Scale [RC] Q4HR Care 07/27/19 12:28 Active Urinary Catheter Assessment [RC] Q4HR Care 07/27/19 12:31 Active Urinary Catheter Insertion [Insert Urinary Catheter] [ Care 07/27/19 10:45 Ordered OM.PC] Q24H Vent Setting Change [Ventilator Setting Changes] [RC] . Care 07/27/19 16:45 Active PRN CULTURE BLOOD [BC] Stat Lab 07/27/19 11:50 Received CULTURE BLOOD [BC] Stat Lab 07/27/19 12:00 Received Sodium Chloride 0.9% [Normal Saline] 45 ml Med 07/27/19 14:00 Active IV ASDIRECTED Sodium Chloride 0.9% [Saline Flush] Med 07/27/19 13:57 Active 10 ml FLUSH ONETIME PRN propofoL [Diprivan 100 ML] 100 ml Med 07/27/19 12:30 Active IV TITRATE Blood Culture x2 Reflex Set [OM.PC] Stat Ot 07/27/19 10:57 Ordered Desired Level of Sedation (RASS) [AST] Click To Edit Ot 07/27/19 12:28 Ordered Nasogastric Orogastric Tube Insertion [OM.PC] Routine Ot 07/27/19 10:45 Ordered Medication Orders Dextrose/Water (Dextrose 50% In Water) 50 ml IVPUSH ASDIRECTED PRN PRN Reason: Hypoglycemia Propofol (Diprivan 100 Ml) 100 mls @ 6.6 mls/hr IV TITRATE KASIE; Protocol Last Admin: 07/27/19 15:36 Dose: 75 mcg/kg/min, 24.75 mls/hr Titration: 07/27/19 15:36 Dose: 75 mcg/kg/min, 24.75 mls/hr Titration: 07/27/19 13:12 Dose: 75 mcg/kg/min, 24.75 mls/hr Titration: 07/27/19 11:50 Dose: 50 mcg/kg/min, 16.5 mls/hr Titration: 07/27/19 11:46 Dose: 45 mcg/kg/min, 14.85 mls/hr Titration: 07/27/19 11:35 Dose: 35 mcg/kg/min, 11.55 mls/hr Admin: 07/27/19 11:16 Dose: 20 mcg/kg/min, 6.6 mls/hr Sodium Chloride (Normal Saline) 45 mls @ 40 mls/hr IV ASDIRECTED KASIE Last Admin: 07/27/19 14:06 Dose: 40 mls/hr Dopamine HCl/Dextrose (Dopamine In D5w 400 Mg/250 Ml) 400 mg in 250 mls @ 20.625 mls/hr IV TITRATE KASIE; Protocol Last Titration: 07/27/19 18:24 Dose: 2.5 mcg/kg/min, 5.156 mls/hr Titration: 07/27/19 17:30 Dose: 5 mcg/kg/min, 10.313 mls/hr Admin: 07/27/19 10:40 Dose: 10 mcg/kg/min, 20.625 mls/hr Lactated Ringer's (Ringers, Lactated) 1,000 mls @ 100 mls/hr IV ASDIRECTED KASIE Last Admin: 07/27/19 18:28 Dose: 100 mls/hr Norepinephrine Bitartrate 4 mg (/ Dextrose/Water) 250 mls @ 15 mls/hr IV TITRATE KASIE; Protocol Ondansetron HCl (Zofran Odt) 4 mg PO Q6H PRN PRN Reason: nausea, able to take PO Ondansetron HCl (Zofran) 4 mg IV Q6H PRN PRN Reason: Nausea/Vomiting Sodium Chloride (Saline Flush) 10 ml FLUSH ONETIME PRN PRN Reason: Keep Vein Open Last Admin: 07/27/19 14:06 Dose: 10 ml Labs: Laboratory Tests 07/27/19 07/27/19 07/27/19 Range/Units 11:15 11:15 11:15 WBC 5.07 (4.23-9.07) K/mm3 RBC 3.34 L (4.63-6.08) M/mm3 Hgb 9.4 L (13.7-17.5) gm/dl Hct 30.2 L (40.1-51.0) % MCV 90.4 (79.0-92.2) fl MCH 28.1 (25.7-32.2) pg MCHC 31.1 L (32.2-35.5) g/dl RDW Std Deviation 51.8 H (35.1-43.9) fL Plt Count 118 L D (163-337) K/mm3 MPV 10.0 (9.4-12.3) fl Neutrophils % (Manual) 69 H (40-60) % Band Neutrophils % 0 (0-10) % Lymphocytes % (Manual) 24 (20-40) % Atypical Lymphs % 0 % Monocytes % (Manual) 5 (2-10) % Eosinophils % (Manual) 2 (0.8-7.0) % Basophils % (Manual) 0 L (0.2-1.2) Platelet Estimate Decreased RBC Morph Comment Normal PT 10.5 (9.7-12.0) SECONDS INR 0.96 APTT 38 H (22-31) SECONDS D-Dimer, Quantitative 1.10 H (0.19-0.50) mg/L Puncture Site ABG pH (7.35-7.45) ABG pCO2 (35.0-45.0) mmHg ABG pO2 (80.0-100.0) mmHg ABG HCO3 (22.0-26.0) meq/L ABG O2 Saturation (96.0-97.0) % ABG Base Excess (-2-2.0) A-a Gradient mmHg O2 Delivery Device FiO2 (21.00-100.00) % Tidal Volume cc PEEP cmH20 Sodium 141 (136-145) mEq/L Potassium 5.3 H (3.5-5.1) mEq/L Chloride 112 H (98-107) mEq/L Carbon Dioxide 18 L (21-32) mEq/L Anion Gap 16.3 H (5-15) BUN 31 H (7-18) mg/dL Creatinine 1.2 (0.7-1.3) mg/dL Est Cr Clr Drug Dosing TNP Estimated GFR (MDRD) 58 (>60) mL/min BUN/Creatinine Ratio 25.8 H (14-18) Glucose 82 L (83-115) mg/dL Lactic Acid (0.4-2.0) mmol/L Calcium 8.6 (8.5-10.1) mg/dL Magnesium 1.5 L (1.8-2.4) mg/dl Total Bilirubin 0.2 (0.2-1.0) mg/dL AST 45 H (15-37) U/L ALT 53 (16-63) U/L Alkaline Phosphatase 204 H (46-116) U/L Troponin I < 0.017 (0.00-0.056) ng/mL Total Protein 6.5 (6.4-8.2) g/dl Albumin 2.9 L (3.4-5.0) g/dl Globulin 3.6 gm/dL Albumin/Globulin Ratio 0.8 L (1-2) Urine Color (Yellow) Urine Appearance (Clear) Urine pH (5.0-8.0) Ur Specific Mcintosh (1.005-1.030) Urine Protein (Negative) Urine Glucose (UA) (Negative) Urine Ketones (Negative) Urine Occult Blood (Negative) Urine Nitrite (Negative) Urine Bilirubin (Negative) Urine Urobilinogen (0.2-1.0) Ur Leukocyte Esterase (Negative) Urine RBC (0-5) /hpf Urine WBC (0-5) /hpf Ur Epithelial Cells (0-5) /hpf Urine Bacteria (FEW) /hpf Urine Mucus (FEW) /hpf Salicylates (2.8-20) mg/dL Urine Opiates Screen (RVJSEX=750) Ur Buprenorphine Scrn (CUTOFF=10) Ur Oxycodone Screen (BJE8AV=810) Urine Methadone Screen (EJK7IF=058) Ur Propoxyphene Screen (HVJDUN=041) Acetaminophen (10-30) ug/mL Ur Barbiturates Screen (VRBNOF=062) Ur Tricyclics Screen (YLTUQS=033) Ur Phencyclidine Scrn (CUTOFF=25) Ur Amphetamine Screen (XIQGFT=406) U Methamphetamines Scrn (SAUFUK=677) U Benzodiazepines Scrn (MMYBOR=665) U Cocaine Metab Screen (QRDZXD=072) U Marijuana (THC) Screen (CUTOFF=50) Ethyl Alcohol (0.00) gm% 07/27/19 07/27/19 07/27/19 Range/Units 11:15 11:15 11:15 WBC (4.23-9.07) K/mm3 RBC (4.63-6.08) M/mm3 Hgb (13.7-17.5) gm/dl Hct (40.1-51.0) % MCV (79.0-92.2) fl MCH (25.7-32.2) pg MCHC (32.2-35.5) g/dl RDW Std Deviation (35.1-43.9) fL Plt Count (163-337) K/mm3 MPV (9.4-12.3) fl Neutrophils % (Manual) (40-60) % Band Neutrophils % (0-10) % Lymphocytes % (Manual) (20-40) % Atypical Lymphs % % Monocytes % (Manual) (2-10) % Eosinophils % (Manual) (0.8-7.0) % Basophils % (Manual) (0.2-1.2) Platelet Estimate RBC Morph Comment PT (9.7-12.0) SECONDS INR APTT (22-31) SECONDS D-Dimer, Quantitative (0.19-0.50) mg/L Puncture Site ABG pH (7.35-7.45) ABG pCO2 (35.0-45.0) mmHg ABG pO2 (80.0-100.0) mmHg ABG HCO3 (22.0-26.0) meq/L ABG O2 Saturation (96.0-97.0) % ABG Base Excess (-2-2.0) A-a Gradient mmHg O2 Delivery Device FiO2 (21.00-100.00) % Tidal Volume cc PEEP cmH20 Sodium (136-145) mEq/L Potassium (3.5-5.1) mEq/L Chloride (98-107) mEq/L Carbon Dioxide (21-32) mEq/L Anion Gap (5-15) BUN (7-18) mg/dL Creatinine (0.7-1.3) mg/dL Est Cr Clr Drug Dosing Estimated GFR (MDRD) (>60) mL/min BUN/Creatinine Ratio (14-18) Glucose (83-115) mg/dL Lactic Acid 0.5 (0.4-2.0) mmol/L Calcium (8.5-10.1) mg/dL Magnesium (1.8-2.4) mg/dl Total Bilirubin (0.2-1.0) mg/dL AST (15-37) U/L ALT (16-63) U/L Alkaline Phosphatase (46-116) U/L Troponin I (0.00-0.056) ng/mL Total Protein (6.4-8.2) g/dl Albumin (3.4-5.0) g/dl Globulin gm/dL Albumin/Globulin Ratio (1-2) Urine Color (Yellow) Urine Appearance (Clear) Urine pH (5.0-8.0) Ur Specific Mcintosh (1.005-1.030) Urine Protein (Negative) Urine Glucose (UA) (Negative) Urine Ketones (Negative) Urine Occult Blood (Negative) Urine Nitrite (Negative) Urine Bilirubin (Negative) Urine Urobilinogen (0.2-1.0) Ur Leukocyte Esterase (Negative) Urine RBC (0-5) /hpf Urine WBC (0-5) /hpf Ur Epithelial Cells (0-5) /hpf Urine Bacteria (FEW) /hpf Urine Mucus (FEW) /hpf Salicylates 0.6 L (2.8-20) mg/dL Urine Opiates Screen (WZPAGO=326) Ur Buprenorphine Scrn (CUTOFF=10) Ur Oxycodone Screen (PSX7IC=980) Urine Methadone Screen (GCO4EK=394) Ur Propoxyphene Screen (DJOXNY=184) Acetaminophen 0 L (10-30) ug/mL Ur Barbiturates Screen (WYWCHB=698) Ur Tricyclics Screen (IQOMER=931) Ur Phencyclidine Scrn (CUTOFF=25) Ur Amphetamine Screen (RRRTLU=511) U Methamphetamines Scrn (QDGZNM=845) U Benzodiazepines Scrn (DOLNXO=113) U Cocaine Metab Screen (NUSJYI=006) U Marijuana (THC) Screen (CUTOFF=50) Ethyl Alcohol 0.00 (0.00) gm% 07/27/19 07/27/19 07/27/19 Range/Units 11:42 11:53 11:53 WBC (4.23-9.07) K/mm3 RBC (4.63-6.08) M/mm3 Hgb (13.7-17.5) gm/dl Hct (40.1-51.0) % MCV (79.0-92.2) fl MCH (25.7-32.2) pg MCHC (32.2-35.5) g/dl RDW Std Deviation (35.1-43.9) fL Plt Count (163-337) K/mm3 MPV (9.4-12.3) fl Neutrophils % (Manual) (40-60) % Band Neutrophils % (0-10) % Lymphocytes % (Manual) (20-40) % Atypical Lymphs % % Monocytes % (Manual) (2-10) % Eosinophils % (Manual) (0.8-7.0) % Basophils % (Manual) (0.2-1.2) Platelet Estimate RBC Morph Comment PT (9.7-12.0) SECONDS INR APTT (22-31) SECONDS D-Dimer, Quantitative (0.19-0.50) mg/L Puncture Site Rt brachial ABG pH 7.28 L (7.35-7.45) ABG pCO2 34.8 L (35.0-45.0) mmHg ABG pO2 66.0 L (80.0-100.0) mmHg ABG HCO3 15.8 L (22.0-26.0) meq/L ABG O2 Saturation 89.6 L (96.0-97.0) % ABG Base Excess -9.7 L (-2-2.0) A-a Gradient 40 mmHg O2 Delivery Device Ventilator FiO2 21.00 (21.00-100.00) % Tidal Volume 400.0 cc PEEP 5.0 cmH20 Sodium (136-145) mEq/L Potassium (3.5-5.1) mEq/L Chloride (98-107) mEq/L Carbon Dioxide (21-32) mEq/L Anion Gap (5-15) BUN (7-18) mg/dL Creatinine (0.7-1.3) mg/dL Est Cr Clr Drug Dosing Estimated GFR (MDRD) (>60) mL/min BUN/Creatinine Ratio (14-18) Glucose (83-115) mg/dL Lactic Acid (0.4-2.0) mmol/L Calcium (8.5-10.1) mg/dL Magnesium (1.8-2.4) mg/dl Total Bilirubin (0.2-1.0) mg/dL AST (15-37) U/L ALT (16-63) U/L Alkaline Phosphatase (46-116) U/L Troponin I (0.00-0.056) ng/mL Total Protein (6.4-8.2) g/dl Albumin (3.4-5.0) g/dl Globulin gm/dL Albumin/Globulin Ratio (1-2) Urine Color Yellow (Yellow) Urine Appearance Slt cloudy H (Clear) Urine pH 5.5 (5.0-8.0) Ur Specific Mcintosh 1.025 (1.005-1.030) Urine Protein Negative (Negative) Urine Glucose (UA) Negative (Negative) Urine Ketones Negative (Negative) Urine Occult Blood Negative (Negative) Urine Nitrite Negative (Negative) Urine Bilirubin Negative (Negative) Urine Urobilinogen 0.2 (0.2-1.0) Ur Leukocyte Esterase Negative (Negative) Urine RBC 0-5 (0-5) /hpf Urine WBC 0-5 (0-5) /hpf Ur Epithelial Cells 0-5 (0-5) /hpf Urine Bacteria Rare (FEW) /hpf Urine Mucus Not seen (FEW) /hpf Salicylates (2.8-20) mg/dL Urine Opiates Screen Negative (HAXTPD=295) Ur Buprenorphine Scrn Negative (CUTOFF=10) Ur Oxycodone Screen Negative (IBH2SF=231) Urine Methadone Screen Negative (URM4GU=686) Ur Propoxyphene Screen Negative (IULJXJ=179) Acetaminophen (10-30) ug/mL Ur Barbiturates Screen Negative (KBDSMO=093) Ur Tricyclics Screen Presumptive positive H (XQATFS=124) Ur Phencyclidine Scrn Negative (CUTOFF=25) Ur Amphetamine Screen Negative (XXPDQG=049) U Methamphetamines Scrn Negative (JAZSHI=932) U Benzodiazepines Scrn Presumptive positive H (PIEECH=264) U Cocaine Metab Screen Negative (TGDDZH=055) U Marijuana (THC) Screen Negative (CUTOFF=50) Ethyl Alcohol (0.00) gm% 07/27/19 Range/Units 16:36 WBC (4.23-9.07) K/mm3 RBC (4.63-6.08) M/mm3 Hgb (13.7-17.5) gm/dl Hct (40.1-51.0) % MCV (79.0-92.2) fl MCH (25.7-32.2) pg MCHC (32.2-35.5) g/dl RDW Std Deviation (35.1-43.9) fL Plt Count (163-337) K/mm3 MPV (9.4-12.3) fl Neutrophils % (Manual) (40-60) % Band Neutrophils % (0-10) % Lymphocytes % (Manual) (20-40) % Atypical Lymphs % % Monocytes % (Manual) (2-10) % Eosinophils % (Manual) (0.8-7.0) % Basophils % (Manual) (0.2-1.2) Platelet Estimate RBC Morph Comment PT (9.7-12.0) SECONDS INR APTT (22-31) SECONDS D-Dimer, Quantitative (0.19-0.50) mg/L Puncture Site Rt brachial ABG pH 7.30 L (7.35-7.45) ABG pCO2 32.9 L (35.0-45.0) mmHg ABG pO2 68.0 L (80.0-100.0) mmHg ABG HCO3 15.7 L (22.0-26.0) meq/L ABG O2 Saturation 91.9 L (96.0-97.0) % ABG Base Excess -9.4 L (-2-2.0) A-a Gradient 42 mmHg O2 Delivery Device Ventilator FiO2 21.00 (21.00-100.00) % Tidal Volume 400.0 cc PEEP 5.0 cmH20 Sodium (136-145) mEq/L Potassium (3.5-5.1) mEq/L Chloride (98-107) mEq/L Carbon Dioxide (21-32) mEq/L Anion Gap (5-15) BUN (7-18) mg/dL Creatinine (0.7-1.3) mg/dL Est Cr Clr Drug Dosing Estimated GFR (MDRD) (>60) mL/min BUN/Creatinine Ratio (14-18) Glucose (83-115) mg/dL Lactic Acid (0.4-2.0) mmol/L Calcium (8.5-10.1) mg/dL Magnesium (1.8-2.4) mg/dl Total Bilirubin (0.2-1.0) mg/dL AST (15-37) U/L ALT (16-63) U/L Alkaline Phosphatase (46-116) U/L Troponin I (0.00-0.056) ng/mL Total Protein (6.4-8.2) g/dl Albumin (3.4-5.0) g/dl Globulin gm/dL Albumin/Globulin Ratio (1-2) Urine Color (Yellow) Urine Appearance (Clear) Urine pH (5.0-8.0) Ur Specific Mcintosh (1.005-1.030) Urine Protein (Negative) Urine Glucose (UA) (Negative) Urine Ketones (Negative) Urine Occult Blood (Negative) Urine Nitrite (Negative) Urine Bilirubin (Negative) Urine Urobilinogen (0.2-1.0) Ur Leukocyte Esterase (Negative) Urine RBC (0-5) /hpf Urine WBC (0-5) /hpf Ur Epithelial Cells (0-5) /hpf Urine Bacteria (FEW) /hpf Urine Mucus (FEW) /hpf Salicylates (2.8-20) mg/dL Urine Opiates Screen (NEILGO=728) Ur Buprenorphine Scrn (CUTOFF=10) Ur Oxycodone Screen (LXP1DA=276) Urine Methadone Screen (HLM5RT=364) Ur Propoxyphene Screen (TNCZUN=952) Acetaminophen (10-30) ug/mL Ur Barbiturates Screen (XESIHC=517) Ur Tricyclics Screen (JBOVRR=845) Ur Phencyclidine Scrn (CUTOFF=25) Ur Amphetamine Screen (AGTLWJ=089) U Methamphetamines Scrn (KXUNWI=556) U Benzodiazepines Scrn (LMTDMY=058) U Cocaine Metab Screen (ASKYWM=020) U Marijuana (THC) Screen (CUTOFF=50) Ethyl Alcohol (0.00) gm% Meds: Medications Generic Name Dose Route Start Last Admin Trade Name Freq PRN Reason Stop Dose Admin Dextrose/Water 50 ml 07/27/19 17:28 Dextrose 50% In Water IVPUSH ASDIRECTED PRN Hypoglycemia Propofol 100 mls @ 6.6 mls/hr 07/27/19 12:30 07/27/19 15:36 Diprivan 100 Ml IV 75 mcg/kg/min TITRATE KASIE 24.75 mls/hr Administration Protocol 20 MCG/KG/MIN Sodium Chloride 45 mls @ 40 mls/hr 07/27/19 14:00 07/27/19 14:06 Normal Saline IV 40 mls/hr ASDIRECTED KASIE Administration Dopamine HCl/Dextrose 400 mg in 250 mls @ 20.625 mls/hr 07/27/19 10:35 18:24 Dopamine In D5w 400 Mg/250 Ml IV 2.5 mcg/kg/min TITRATE KASIE 5.156 mls/hr Titration Protocol 10 MCG/KG/MIN Lactated Ringer's 1,000 mls @ 100 mls/hr 07/27/19 17:30 07/27/19 18:28 Ringers, Lactated IV 100 mls/hr ASDIRECTED KASIE Administration Norepinephrine Bitartrate 4 mg 250 mls @ 15 mls/hr 07/27/19 18:45 / Dextrose/Water IV TITRATE KASIE Protocol 4 MCG/MIN Ondansetron HCl 4 mg 07/27/19 17:34 Zofran Odt PO Q6H PRN nausea, able to take PO Ondansetron HCl 4 mg 07/27/19 17:34 Zofran IV Q6H PRN Nausea/Vomiting Sodium Chloride 10 ml 07/27/19 13:57 07/27/19 14:06 Saline Flush FLUSH 10 ml ONETIME PRN Administration Keep Vein Open Discontinued Medications Generic Name Dose Route Start Last Admin Trade Name Freq PRN Reason Stop Dose Admin Fentanyl Confirm 07/27/19 15:23 07/27/19 15:44 Sublimaze Administered 07/27/19 15:24 Not Given Dose 200 mcg .ROUTE .STK-MED ONE Fentanyl 50 mcg 07/27/19 15:37 07/27/19 15:42 Sublimaze IVPUSH 07/27/19 15:38 50 mcg ONETIME ONE Administration Propofol Confirm 07/27/19 10:44 07/27/19 12:42 Diprivan 100 Ml Administered 07/27/19 10:45 Not Given Dose 100 mls @ as directed .ROUTE .STK-MED ONE Sodium Chloride 500 mls @ 1,000 mls/hr 07/27/19 11:00 07/27/19 12:42 Normal Saline IV 07/27/19 11:29 Not Given .BOLUS ONE Magnesium Sulfate 2 gm/ Premix 50 mls @ 50 mls/hr 07/27/19 12:48 07/27/19 13: 08 IV 07/27/19 13:47 50 mls/hr ONETIME ONE Administration Lactated Ringer's 1,000 mls @ 999 mls/hr 07/27/19 17:33 07/27/19 17:34 Ringers, Lactated IV 07/27/19 18:33 999 mls/hr ONETIME ONE Administration Iopamidol 100 ml 07/27/19 13:57 07/27/19 14:06 Isovue-300 (61%) IVPUSH 07/27/19 13:58 100 ml ONETIME ONE Administration Propofol 200 mg 07/27/19 13:30 Diprivan 20 Ml .ROUTE 07/27/19 13:31 .STK-MED ONE Succinylcholine Chloride 200 mg 07/27/19 13:30 Quelicin .ROUTE 07/27/19 13:31 .STK-MED ONE - Re-Assessments/Exams Free Text/Narrative Re-Assessment/Exam: 07/27/19 11:01 As above, the patient was found unresponsive except to noxious stimuli despite 2 mg of Narcan, and his blood pressure is high enough to support adequate cerebral perfusion. His pupils are pinpoint, however, the patient is status post cataract surgery, therefore I do not feel that they can be relied upon. I have ordered a CT scan of his head, along with an extensive work-up that includes blood work, a urinalysis, a urine drug screen, a lactic acid level, and 2 sets of blood cultures. The patient was given 1 mg of atropine for junctional bradycardia on his post-intubation ECG. We are giving him a IV fluid bolus. We will check an ABG about 20 minutes after he is placed on a ventilator, once he returns from CT scan. We will also check an x-ray of his left hip, given the large hematoma. 07/27/19 11:10 Post-intubation portable chest radiograph reviewed. The cardiac silhouette is within normal limits. No pulmonary vascular congestion. No pleural effusions. No focal infiltrate. No pneumothorax. Tip of the ET tube is seen about 2 cm above the marc. The OG tube is seen going down the right mainstem bronchus. A pacer pad is incidentally noted. Formal read per the Radiologist pending. Preliminary review of the CT of the head appears to demonstrate large ventricles and generalized atrophy. No intracranial hemorrhage seen. Formal read per the Radiologist pending. 07/27/19 11:18 Following IV atropine, the patient's HR is now up to 75, with a BP of 149/80. His oxygen saturation is 100% on vent settings of A/C 12/.400/5/0.21. An ABG will be performed in about 15 minutes. 07/27/19 11:44 Notified by the patient's RN that there was difficulty in getting either an OG or NG tube down. I then attempted to place an OG tube. I was able to advance the tube to 60 cm, and gurgling is heard with air insufflation. Post-procedure portable chest x-ray pending. 07/27/19 11:57 CT of the head without contrast as read by Dr. Rivers as: 1. Senescent changes noted above. 2. Nothing acute is identified on noncontrast head CT exam. Post-procedure portable chest x-ray demonstrates the tip of the OETT at around 2.5 cm above the marc. The OG tube is in the stomach via the esophagus. 2-view radiographs of the left hip and pelvis appear to demonstrate a left iliac wing fracture with inferior displacement. The bones appear to be osteopenic. Formal read per the Radiologist pending. Post-intubation ABG represents a combined non-anion gap metabolic acidosis with respiratory acidosis. 07/27/19 12:50 The patient CBC is remarkable for a H/H depressed at 9.4/30.2, and platelets depressed at 118,000. His CMP is remarkable for potassium slightly elevated at 5.3, chloride elevated at 112, bicarbonate depressed at 18 with an anion gap of 16.3, BUN elevated at 31 with a Cr normal at 1.2, and blood glucose 82. The remainder of his CMP is unremarkable. His magnesium level is depressed at 1.5. His troponin is undetectably low. His lactic acid level is within normal limits at 0.5. His d-dimer is elevated at 1.10. His PTT is elevated at 38, with the remainder of his coags being normal. His salicylate level is within normal limits at 0.6. His acetaminophen level is 0. His EtOH level is 0.00. His urinalysis and urine drug screen results are pending. Based on the above, I have ordered a CT angiogram of the chest with IV contrast to evaluate for a PE, along with a 2 g Mg-rider. 07/27/19 13:37 I had the opportunity to meet with the patient's brother, his [id number], and nephew. The patient's [id number] had some paperwork which reflected in the event of a persistent vegetative state or terminal illness, that the patient desired to be DNR, although there is no mention of DNI. Additionally, the DNR status appears to be limited only to the conditions of a persistent vegetative state or terminal illness therefore the patient would be full code in the absence of those conditions. The patient's designated power of yeast maker for healthcare appears to be a law firm. 07/27/19 14:02 The patient's urinalysis is unremarkable. His urine drug screen is positive for tricyclic antidepressants and benzodiazepines. 07/27/19 14:40 CT angiogram of the chest is read by Dr. Rivers as: 1. Small bilateral pleural effusions. Atelectasis noted posteriorly within both lung bases. 2. No findings of pulmonary embolism. 3. Coronary artery calcification. Nothing acute is seen. 07/27/19 15:[address] Mccarthy here in the ED. She will evaluate the patient. Departure - Departure Time of Disposition: 15:18 Disposition: Admitted As Inpatient 65 Condition: Good Clinical Impression: Unresponsive, Hypomagnesemia - Discharge Information *PRESCRIPTION DRUG MONITORING PROGRAM REVIEWED*: Not Applicable *COPY OF PRESCRIPTION DRUG MONITORING REPORT IN PATIENT KAITY: Not Applicable Sepsis Event Note - Focused Exam Vital Signs: Vital Signs Temp Pulse Resp BP Pulse Ox 07/27/19 10:32 35.1 C L 57 L 20 139/66 93 L Date Exam was Performed: 07/27/19 Time Exam was Performed: 18:46 - My Orders Last 24 Hours: My Active Orders 07/27/19 10:45 Gastrointestinal Tube Mgmt [RC] Q4HR Urinary Catheter Insertion [Insert Urinary Catheter] [OM.PC] Q24H Nasogastric Orogastric Tube Insertion [OM.PC] Routine 07/27/19 10:57 Blood Culture x2 Reflex Set [OM.PC] Stat 07/27/19 11:50 CULTURE BLOOD [BC] Stat 07/27/19 12:00 CULTURE BLOOD [BC] Stat 07/27/19 12:28 RASS Sedation Scale [RC] Q4HR Desired Level of Sedation (RASS) [AST] Click To Edit 07/27/19 12:30 propofoL [Diprivan 100 ML] 100 ml IV TITRATE 07/27/19 12:31 Urinary Catheter Assessment [RC] Q4HR 07/27/19 13:57 Sodium Chloride 0.9% [Saline Flush] 10 ml FLUSH ONETIME PRN 07/27/19 14:00 Sodium Chloride 0.9% [Normal Saline] 45 ml IV ASDIRECTED 07/27/19 16:45 Vent Setting Change [Ventilator Setting Changes] [RC] .PRN - Assessment/Plan Last 24 Hours: My Active Orders 07/27/19 10:45 Gastrointestinal Tube Mgmt [RC] Q4HR Urinary Catheter Insertion [Insert Urinary Catheter] [OM.PC] Q24H Nasogastric Orogastric Tube Insertion [OM.PC] Routine 07/27/19 10:57 Blood Culture x2 Reflex Set [OM.PC] Stat 07/27/19 11:50 CULTURE BLOOD [BC] Stat 07/27/19 12:00 CULTURE BLOOD [BC] Stat 07/27/19 12:28 RASS Sedation Scale [RC] Q4HR Desired Level of Sedation (RASS) [AST] Click To Edit 07/27/19 12:30 propofoL [Diprivan 100 ML] 100 ml IV TITRATE 07/27/19 12:31 Urinary Catheter Assessment [RC] Q4HR 07/27/19 13:57 Sodium Chloride 0.9% [Saline Flush] 10 ml FLUSH ONETIME PRN 07/27/19 14:00 Sodium Chloride 0.9% [Normal Saline] 45 ml IV ASDIRECTED 07/27/19 16:45 Vent Setting Change [Ventilator Setting Changes] [RC] .PRN ED ET INTUBATION - Endotracheal Intubation Time of Intubation: 10:43 ET Intubation Indication: Airway Protection Preparation: Suction, Balloon Tested, BVM Set Up, Difficult Airway Equip Pre-oxygenation: assisted with BVM, 100% FiO2, spontaneous breathing Paralysis: propofol (diprivan) (40 mg), succinylcholine (80 mg) Placement: Orotracheal, Cuffed, Uncomplicated Placement ETT Size In mm: 8.0 Number of Attempts: 1 Post intubation tube placement confirmed by: CO2 change, tube fog, bilateral breath sounds, CXR Tube Secured By: By RT
[2019-07-27] MEDS: propofoL 100 ML IV SCH ×4 (11:16→23:49)
--- NOTE | 2019-07-27 11:20 | CR ---
Chest: Portable view of the chest was obtained. Comparison: Prior chest x-ray of 05/06/19. Heart size is normal. Upper mediastinum is normal. Endotracheal tube is seen with tip lying at the lower level of the clavicles. Nasogastric tube courses into the right lower lung bronchus. Lungs show no acute parenchymal change. Bony structures are grossly intact. Impression: 1. Tip of nasogastric tube within a right lower lobe bronchus. This should be repositioned. 2. Satisfactory position of endotracheal tube. Diagnostic code #5 This report was dictated in [place] Standard Time
--- NOTE | 2019-07-27 11:54 | CT ---
Head CT Technique: Multiple axial sections through the brain were obtained. Intravenous contrast was not utilized. Comparison: No prior intracranial imaging is available. Findings: Ventricles along with basal cisterns and sulci over the convexities are moderately prominent. Very minimal diminished density is noted within the periventricular white matter compatible with slight small vessel ischemic demyelination change. No other abnormal parenchymal densities are seen. No evidence of intracranial hemorrhage. No midline shift or mass effect is seen. Atherosclerotic calcification is noted within the vertebral vessels and carotid siphon. Bone window settings were reviewed. Visualized mastoid sinuses and paranasal sinuses show nothing acute. No acute calvarial abnormality is appreciated. Impression: 1. Senescent change as noted above. 2. Nothing acute is identified on noncontrast head CT exam. Diagnostic code #2 This report was dictated in [place] Standard Time
--- NOTE | 2019-07-27 12:25 | CR ---
Chest: Portable view of the chest was obtained. Comparison: Prior chest x-ray performed earlier on the same day (10:40 AM). Nasogastric tube is seen. Tip now lies within the stomach and courses off the inferior edge of the study. Tip of endotracheal tube is midway between the clavicles and marc which is satisfactory in position. Lungs are clear with no acute parenchymal change. Bony structures are grossly intact. Impression: 1. Satisfactory position of endotracheal tube and nasogastric tube. 2. Nothing acute is appreciated on portable chest x-ray. Diagnostic code #2 This report was dictated in [place] Standard Time
[2019-07-27] MEDS ORDERED: Magnesium Sulfate/Water 2 GM in Premix Bag 1 BAG IV ONE (12:48)
--- NOTE | 2019-07-27 13:28 | CR ---
Pelvis and left hip: AP view of the pelvis was obtained as well as crosstable lateral view of the left hip. Comparison: Prior pelvis and left hip exam of 06/11/19. Findings: Mild joint space narrowing is seen within both hips. Fracture is noted within the lateral left iliac wing. Degenerative change is noted at the L5-S1 level within the spine. Vascular calcification is seen. Bony structures are osteopenic. Impression: 1. Left iliac wing fracture slightly increased in the amount of displacement from prior exam. Mild sclerosis is seen compatible with early callus. 2. Other findings as noted above. Diagnostic code #3 Study was dictated in [place] Standard Time
[2019-07-27] MEDS ORDERED: Succinylcholine 200 MG/10 ML MDV ONE (13:30)
[2019-07-27] MEDS ORDERED: Propofol 200 MG/20 ML SDV ONE (13:30)
[2019-07-27] MEDS ORDERED: Iopamidol 612 MG/ML 100 ML Bottle IVPUSH ONE (13:57)
[2019-07-27] MEDS ORDERED: Sodium Chloride 0.9% 10 ML Syringe FLUSH PRN (13:57)
[2019-07-27] MEDS ORDERED: Sodium Chloride 0.9% 45 ML IV SCH (14:00)
--- NOTE | 2019-07-27 14:25 | CT ---
CT chest Technique: Multiple axial sections through the chest were obtained. Intravenous contrast was utilized. Study has been performed as a pulmonary angiogram protocol. Findings: Pulmonary arteries are fairly well-opacified. No filling defects are seen to indicate pulmonary embolism. Mild increased density within both posterior lung bases most likely representing atelectasis. Small bilateral pleural effusions are also noted. Coronary artery calcification is noted. Endotracheal tube is seen with tip lying above the marc. Nasogastric tube courses into the stomach. Visualized upper abdominal structures show several nonobstructing calculi within the left kidney. Lungs otherwise are clear. Impression: 1. Small bilateral pleural effusions. Atelectasis noted posteriorly within both lung bases. 2. No findings of pulmonary embolism. 3. Coronary artery calcification. Nothing acute is seen. Diagnostic code #2 Study was dictated in [place] Standard Time
[2019-07-27] MEDS ORDERED: Atropine 0.1 MG/ML 10 ML Syringe ONE (14:45)
[2019-07-27] MEDS ORDERED: fentaNYL 100 MCG/2 ML SDV ONE (15:23)
[2019-07-27] MEDS ORDERED: fentaNYL 100 MCG/2 ML SDV IVPUSH ONE (15:37)
[2019-07-27] MEDS ORDERED: 50% Dextrose in Water 50 ML Syringe IVPUSH PRN (17:28)
[2019-07-27] MEDS ORDERED: Lactated Ringers 1,000 ML IV ONE (17:33)
--- NOTE | 2019-07-27 17:33 | CR ---
Chest: Portable view of the chest was obtained. Comparison: Prior chest x-ray performed earlier on the same day (11:33 AM). Endotracheal tube is satisfactory in position lying between the clavicles and marc. Nasogastric tube is seen with tip lying within the stomach. Right jugular line is seen with tip lying within the superior vena cava. No pneumothorax is identified. Lungs show no acute parenchymal change. Blunting of the lateral left costophrenic angle is seen compatible with minimal pleural effusion. Impression: 1. Endotracheal tube, nasogastric tube and right jugular line. Tubes and catheters appear within normal limits in position. 2. Small left-sided pleural effusion. 3. Nothing acute is otherwise seen. Diagnostic code #3 This report was dictated in [place] Standard Time
[2019-07-27] MEDS ORDERED: Ondansetron 4 MG Tab.DIS PO PRN (17:34)
[2019-07-27] MEDS ORDERED: Ondansetron 4 MG/2 ML SDV IV PRN (17:34)
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
[2019-07-27] MEDS: Lactated Ringers 1,000 ML IV SCH (18:28)
[2019-07-27] MEDS ORDERED: Norepinephrine 4 MG in Dextrose 5% in Water 246 ML IV SCH ×2 (18:45)
[2019-07-27] MEDS ORDERED: Albuterol 0.083% 2.5 MG/3 ML Neb Soln NEB ONE (19:29)
[2019-07-27] MEDS ORDERED: Calcium Gluconate 10% 1 GM/10 ML SDV IVPUSH ONE (19:32)
[2019-07-27] MEDS ORDERED: Insulin Regular, Human 100 Units/ML 3 ML Vial IV ONE (19:32)
[2019-07-27] MEDS ORDERED: 50% Dextrose in Water 50 ML Syringe IVPUSH ONE (19:40)
--- NOTE | 2019-07-28 00:10 | PCM.PRNOTE ---
- Free Text/Narrative Note: Central Line Placement Note Date: 07/27/19 Time: 16:10 Indication: Intravenous access Attending: Payal Mccarthy MD A time-out was completed verifying correct patient, procedure, site, positioning , and special equipment if applicable. The patient was placed in a dependent position appropriate for central line placement based on the vein to be cannulated. The patients right neck was prepped and draped in sterile fashion. 1% Lidocaine was used to anesthetize the surrounding skin area. A triple lumen 7-[place] Cordis catheter was introduced into the the internal jugular using the Seldinger technique and under ultrasound guidance. The catheter was threaded smoothly over the guide wire and appropriate blood return was obtained. Each lumen of the catheter was evacuated of air and flushed with sterile saline. The catheter was then sutured in place to the skin and a sterile dressing applied. Perfusion to the extremity distal to the point of catheter insertion was checked and found to be adequate. Estimated Blood Loss: 12mL The patient tolerated the procedure well and there were no complications.
[2019-07-28] MEDS: Lactated Ringers 1,000 ML IV SCH ×3 (04:03→22:06)
[2019-07-28] MEDS: propofoL 100 ML IV SCH ×2 (04:11→07:48)
[2019-07-28] MEDS ORDERED: 50% Dextrose in Water 50 ML Syringe IVPUSH PRN (05:54)
[2019-07-28] MEDS ORDERED: Magnesium Sulfate/Water 4 GM in Premix Bag 1 BAG IV ONE (07:33)
[2019-07-28] MEDS: Enoxaparin 40 MG/0.4 ML Syringe SUBCUT SCH (08:04)
[2019-07-28] MEDS ORDERED: Pantoprazole 40 MG Vial IVPUSH SCH (09:00)
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
--- NOTE | 2019-07-28 09:14 | PCM.PN ---
- General Info Date of Service: 07/28/19 Subjective Update: INTERVAL HISTORY Overnight Events: none Vital Signs: BP trend: 106-157/45-66 HR trend: 50-71 Tmax: 97.9 SatO2: >92% Drips: LR Propofol and Fentanyl Norepinephrine and Dopamine Mechanical Ventilation: Intubation day: 07/27/19 Mode: AC volume Vt: 400 PEEP: 5 PIP: 10 Pmean: 8 I/Os: UO: 250 24h balance/ since admission: +1351 BM: not yet Diabetes: Glucose trend: 76-151 New results: WBC: 5.07--> 14.88 Hb: 9.4--> 7.8 Plt: 118-->135 K: 5.3-->4.8 M.5-->1.3 - Patient Data Vitals - Most Recent: Last Vital Signs Temp 97.3 F 07/28/19 08:00 Pulse 74 07/28/19 05:46 Resp 22 H 07/28/19 09:00 BP 111/41 L 07/28/19 09:00 Pulse Ox 100 07/28/19 09:00 Weight - Most Recent: 70.806 kg - Exam Physical Findings Comments:: Quality Assessment: Supplemental Oxygen, Central Line/PICC, Urinary Catheter, Skin Breakdown General: Sedated HEENT: Conjunctiva Clear Neck: Supple, Trachea Midline, +2 Carotid Pulse wo Bruit. No: Lymphadenopathy Lungs: Clear to Auscultation, Crackles. No: Rales, Rhonchi, Rub, Stridor, Wheezing Cardiovascular: Regular Rate, Regular Rhythm. No: Systolic Murmur, Diastolic Murmur, Rubs, Gallop/S3, Gallop/S4 GI/Abdominal Exam: Normal Bowel Sounds, Soft, Non-Tender Extremities: Pallor, Redness, Other (obvious deformity of left hip with protuberance on lateral aspect with significant bruising, 8cm excoriation on left vásquez, multiple small excoriations and bruising throughout) Skin: Cool, Ecchymosis, Wound Sepsis Event Note - Evaluation Sepsis Screening Result: Sepsis Risk - Focused Exam Date Exam was Performed: 08/01/19 Time Exam was Performed: 16:16 - Problem List & Annotations (1) Unresponsive SNOMED Code(s): 586193313 Code(s): R41.89 - OTH SYMPTOMS AND SIGNS W COGNITIVE FUNCTIONS AND AWARENESS Status: Acute Current Visit: Yes (2) Hypomagnesemia SNOMED Code(s): 888059708 Code(s): E83.42 - HYPOMAGNESEMIA Status: Acute Current Visit: Yes (3) COPD (chronic obstructive pulmonary disease) SNOMED Code(s): 03795558 Code(s): J44.9 - CHRONIC OBSTRUCTIVE PULMONARY DISEASE, UNSPECIFIED Status : Chronic Priority: Medium Current Visit: No Qualifiers: COPD type: unspecified COPD Qualified Code(s): J44.9 - Chronic obstructive pulmonary disease, unspecified (4) Dementia SNOMED Code(s): 19139928 Code(s): F03.90 - UNSPECIFIED DEMENTIA WITHOUT BEHAVIORAL DISTURBANCE Status: Chronic Priority: Medium Current Visit: No Qualifiers: Dementia type: unspecified type Dementia behavioral disturbance: without behavioral disturbance Qualified Code(s): F03.90 - Unspecified dementia without behavioral disturbance (5) Diabetes mellitus SNOMED Code(s): 65059818 Code(s): E11.9 - TYPE 2 DIABETES MELLITUS WITHOUT COMPLICATIONS Status: Chronic Priority: Medium Current Visit: No Qualifiers: Diabetes mellitus type: other specified (including CESAR) Diabetes 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 insulin use status Diabetes mellitus complication status: with other specified complication Qualified Code (s): E13.69 - Other specified diabetes mellitus with other specified complication (6) Hypertension SNOMED Code(s): 88384243 Code(s): I10 - ESSENTIAL (PRIMARY) HYPERTENSION Status: Chronic Priority : Low Current Visit: No Qualifiers: Hypertension type: unspecified Qualified Code(s): I10 - Essential (primary ) hypertension (7) Anemia SNOMED Code(s): 829015855 Code(s): D64.9 - ANEMIA, UNSPECIFIED Status: Acute Current Visit: Yes (8) Hypothermia SNOMED Code(s): 212058664 Code(s): T68.XXXA - HYPOTHERMIA, INITIAL ENCOUNTER Status: Acute Current Visit: Yes (9) Hyperkalemia SNOMED Code(s): 46414660 Code(s): E87.5 - HYPERKALEMIA Status: Acute Current Visit: Yes (10) High anion gap metabolic acidosis SNOMED Code(s): 75340990 Code(s): E87.2 - ACIDOSIS Status: Acute Current Visit: Yes (11) Respiratory acidosis SNOMED Code(s): 62529482 Code(s): E87.2 - ACIDOSIS Status: Acute Current Visit: Yes (12) Normal anion gap metabolic acidosis SNOMED Code(s): 127653058 Code(s): E87.2 - ACIDOSIS Status: Acute Current Visit: Yes (13) Acute kidney injury SNOMED Code(s): 61771423, 65773583 Code(s): N17.9 - ACUTE KIDNEY FAILURE, UNSPECIFIED Status: Acute Current Visit: Yes - Problem List Review Problem List Initiated/Reviewed/Updated: Yes - Plan Plan:: ASSESSMENT Recently admitted for a fall with subsequent hip fracture--> discharged to intermediate out of which he checked himself out Currently residing in a house with caregivers As per sister in law patient was found to be less responsive for which caregivers placed him in car and took him to intermediate day care where they were told to call EMS EMS reported he responded minimally to a sternal rub. Accu-Chek was 79. Initial BP 168/68. SPO2 80% on room air, up to the 90s on 5 L. His pupils were pinpoint. The patient was given 2 mg of IV Narcan, without change in his condition. On arrival, the patient was receiving oxygen per nasal cannula--> intubated for airway protection. Junctional rhythm with bradycardia post intubation--> given atropine Overdose potential is very low, family members state he does not have access to medications where he stays, they are given to him Neurologic: Continue sedation with propofol and Fentanyl Daily sedation vacation Rectal temp monitoring, [facility] Cognitive evaluation once awake Respiratory: Continue mechanical ventilation. ETT care by nursing, keep HOB elevated, scheduled oral care ABGs in AM SBT daily Cardiovascular: Continue dopamine, wean off as tolerated, goal HR > 60 MAP goal > 65, if drops start norepinephrine Hourly vital signs Renal and Electrolytes: Insert Lala catheter Monitor urine output, goal >27ml/hr Replace magnesium Repeat labs in AM Start LR GI and hepatology: Pantoprazole for stress ulcer prophylaxis OG tube care by nursing OG tube at intermittent suction Endocrine and Metabolism: NPO for now Glucose checks every 6 hours Hypoglycemia protocol Hold insulin for now Infectious Disease No infectious source at this time Monitor temp Panculture if febrile Hematology, Oncology and Immune system: No signs of active bleeding Goal Hb >7 PROPHYLAXIS DVT- Lovenox GI- Pantoprazole CODE STATUS: FULL CODE DISPOSITION: Patient will remain admitted to the ICU for mechanical ventilation and rewarming as well as monitorization and stabilization of BP. SOCIAL INFORMATION: Recently admitted and discharged to intermediate, but he checked himself out, will get a cognitive evaluation once awake PT/OT ordered and case management/social work consulted for discharge planning. Case was discussed with family members and conversation created a lot of discontent from their part, brother who is 2nd surrogate stated patient would not want to be resuscitated. Advanced directives were revised and patient stated he would not want to be kept alive artificially once his condition is determined to be terminal, that is not the case at this time. Code status will be changed to full code. PROGNOSIS: ATKA- 25 on admission, predicted rate 53.5%
[2019-07-28] MEDS: Pantoprazole 40 MG Vial IVPUSH SCH (20:06)
[2019-07-29] MEDS: Enoxaparin 40 MG/0.4 ML Syringe SUBCUT SCH (09:31)
[2019-07-29] MEDS: Pantoprazole 40 MG Vial IVPUSH SCH ×2 (09:35→20:01)
[2019-07-29] MEDS: Lactated Ringers 1,000 ML IV SCH ×2 (10:03→19:31)
[2019-07-29] MEDS ORDERED: Piperacillin/Tazobactam 4.5 GM in Sodium Chloride 0.9% 100 ML IV ONE (15:00)
--- NOTE | 2019-07-29 15:09 | CR ---
Chest: Portable view of the chest was obtained. Comparison: Prior chest x-ray of 07/27/19. Increasing density within right lung base from prior study. Lungs otherwise are clear. Right sided jugular line is noted. Nasogastric tube is seen coursing off the inferior edge of the film. Impression: 1. Increasing density within the right lung base most likely due to pneumonia or aspiration. 2. Right jugular line and nasogastric tube. Diagnostic code #3 Study was dictated in [place] Standard Time
[2019-07-29] MEDS: Levofloxacin/Dextrose 5%-Water 750 MG in Premix Bag 1 BAG IV SCH (15:38)
--- NOTE | 2019-07-29 19:36 | PCM.PN ---
- General Info Date of Service: 07/29/19 Subjective Update: INTERVAL HISTORY Overnight Events: - Propofol off since yesterday AM Vital Signs: BP trend: 97-143/42-66 HR trend: 52-71 Tmax: 97.9 SatO2: >88% Drips: LR Mechanical Ventilation: Intubation day: 07/27/19 ABGs: 7.43/27.4/93/18/96.8 Mode: AC volume Vt: 400 FiO2: 30% PEEP: 5 PIP: 9 Pmean: 6 I/Os: UO: 2,000 24h balance: +701 Balance since admission: +2,058 BM: not yet Diet: NPO Diabetes: Glucose trend: 59-160 New results: WBC: 5.07--> 14.88--> 5.67 Hb: 9.4--> 7.8--> 7.2 Plt: 118-->135-->89 M.5-->1.3-->1.5 MRSA Screen: negative - Patient Data Vitals - Most Recent: Last Vital Signs Temp 98.4 F 07/29/19 16:00 Pulse 77 07/29/19 08:32 Resp 21 H 07/29/19 16:00 BP 131/58 L 07/29/19 16:00 Pulse Ox 95 07/29/19 16:00 Weight - Most Recent: 72.892 kg - Exam Quality Assessment: Supplemental Oxygen, Central Line/PICC, Urine Catheter, DVT Prophylaxis, Skin Breakdown Physical Findings Comments:: Quality Assessment: Supplemental Oxygen, Central Line/PICC, Urinary Catheter, Skin Breakdown General: Sedated HEENT: Conjunctiva Clear Neck: Supple, Trachea Midline, +2 Carotid Pulse wo Bruit. No: Lymphadenopathy Lungs: Clear to Auscultation, Crackles worsened with some rhonchi No: Rales, Rhonchi, Rub, Stridor, Wheezing Cardiovascular: Regular Rate, Regular Rhythm. No: Systolic Murmur, Diastolic Murmur, Rubs, Gallop/S3, Gallop/S4 GI/Abdominal Exam: Normal Bowel Sounds, Soft, Non-Tender Extremities: Pallor, Redness, Other (obvious deformity of left hip with protuberance on lateral aspect with significant bruising, 10cm excoriation on left vásquez, multiple small excoriations and bruising throughout including on face ) Skin: Cool, Ecchymosis, Wound (Left vásquez 10cm, multiple excoriations throughout the body), blanching erythema in skin above coccyx Sepsis Event Note - Evaluation Sepsis Screening Result: No Definite Risk - Focused Exam Vital Signs: Vital Signs Temp Pulse Resp BP Pulse Ox Pulse Ox 07/29/19 16:00 98.4 F 21 H 131/58 L 95 07/29/19 13:50 97 07/29/19 12:15 96 07/29/19 12:00 98.7 F 13 133/49 L 07/29/19 10:00 126/63 07/29/19 09:00 17 138/74 07/29/19 08:32 77 20 97 07/29/19 08:00 97.2 F 17 137/61 96 Date Exam was Performed: 08/01/19 Time Exam was Performed: 17:20 - Problem List & Annotations (1) Unresponsive SNOMED Code(s): 799218227 Code(s): R41.89 - OTH SYMPTOMS AND SIGNS W COGNITIVE FUNCTIONS AND AWARENESS Status: Acute Current Visit: Yes (2) Hypomagnesemia SNOMED Code(s): 299469371 Code(s): E83.42 - HYPOMAGNESEMIA Status: Acute Current Visit: Yes (3) COPD (chronic obstructive pulmonary disease) SNOMED Code(s): 56975737 Code(s): J44.9 - CHRONIC OBSTRUCTIVE PULMONARY DISEASE, UNSPECIFIED Status : Chronic Priority: Medium Current Visit: No Qualifiers: COPD type: unspecified COPD Qualified Code(s): J44.9 - Chronic obstructive pulmonary disease, unspecified (4) Dementia SNOMED Code(s): 63123330 Code(s): F03.90 - UNSPECIFIED DEMENTIA WITHOUT BEHAVIORAL DISTURBANCE Status: Chronic Priority: Medium Current Visit: No Qualifiers: Dementia type: unspecified type Dementia behavioral disturbance: without behavioral disturbance Qualified Code(s): F03.90 - Unspecified dementia without behavioral disturbance (5) Diabetes mellitus SNOMED Code(s): 93055927 Code(s): E11.9 - TYPE 2 DIABETES MELLITUS WITHOUT COMPLICATIONS Status: Chronic Priority: Medium Current Visit: No Qualifiers: Diabetes mellitus type: other specified (including CESAR) Diabetes mellitus nursing 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 [employer] insulin use status Diabetes mellitus complication status: with other specified complication Qualified Code (s): E13.69 - Other specified diabetes mellitus with other specified complication (6) Hypertension SNOMED Code(s): 12180877 Code(s): I10 - ESSENTIAL (PRIMARY) HYPERTENSION Status: Chronic Priority : Low Current Visit: No Qualifiers: Hypertension type: unspecified Qualified Code(s): I10 - Essential (primary ) hypertension (7) Anemia SNOMED Code(s): 405886678 Code(s): D64.9 - ANEMIA, UNSPECIFIED Status: Acute Current Visit: Yes (8) Hypothermia SNOMED Code(s): 268504156 Code(s): T68.XXXA - HYPOTHERMIA, INITIAL ENCOUNTER Status: Acute Current Visit: Yes (9) Hyperkalemia SNOMED Code(s): 87206784 Code(s): E87.5 - HYPERKALEMIA Status: Acute Current Visit: Yes (10) High anion gap metabolic acidosis SNOMED Code(s): 70196671 Code(s): E87.2 - ACIDOSIS Status: Acute Current Visit: Yes (11) Respiratory acidosis SNOMED Code(s): 74094197 Code(s): E87.2 - ACIDOSIS Status: Acute Current Visit: Yes (12) Normal anion gap metabolic acidosis SNOMED Code(s): 661768803 Code(s): E87.2 - ACIDOSIS Status: Acute Current Visit: Yes (13) Hypoglycemia SNOMED Code(s): 128964295 Code(s): E16.2 - HYPOGLYCEMIA, UNSPECIFIED Status: Acute Current Visit: Yes (14) Stage 1 decubitus ulcer SNOMED Code(s): 879577794 Code(s): L89.91 - PRESSURE ULCER OF UNSPECIFIED SITE, STAGE 1 Status: Acute Current Visit: Yes - Problem List Review Problem List Initiated/Reviewed/Updated: Yes - Plan Plan:: ASSESSMENT Day 1 - Recently admitted for a fall with subsequent hip fracture--> discharged to residential out of which he checked himself out - Currently residing in a house with caregivers - As per sister in law patient was found to be less responsive for which caregivers placed him in car and took him to residential day care where they were told to call EMS - EMS reported he responded minimally to a sternal rub. Accu-Chek was 79. Initial BP 168/68. SPO2 80% on room air, up to the 90s on 5 L. His pupils were pinpoint. The patient was given 2 mg of IV Narcan, without change in his condition. - On arrival, the patient was receiving oxygen per nasal cannula--> intubated for airway protection. - Junctional rhythm with bradycardia post intubation--> given atropine - Overdose potential is very low, family members state he does not have access to medications where he stays, they are given to him Day 2 - Initially required minimal sedation, this has been off since yesterday in the AM, CPAP trial yesterday was tolerated great--> goal is to extubate today - There is concern for pneumonia so will order CXR to evaluate [employer] Neurologic: No sedation since yesterday Cognitive evaluation once awake Respiratory: CPAP trial today ETT care by nursing, keep HOB elevated, scheduled oral care ABGs in afternoon Worsened physical exam--> repeat CXR today Cardiovascular: MAP goal > 65, if drops start norepinephrine Hourly vital signs Renal and Electrolytes: Lala catheter care Monitor urine output, goal >27ml/hr Replace magnesium Repeat labs in AM Start LR/D5 GI and hepatology: Pantoprazole for stress ulcer prophylaxis OG tube care by nursing OG tube at intermittent suction Endocrine and Metabolism: NPO for now Glucose checks every 6 hours Hypoglycemia protocol Hold insulin for now Infectious Disease No infectious source at this time Monitor temp Panculture if febrile Hematology, Oncology and Immune system: No signs of active bleeding Goal Hb >7 Skin/Musculoskeletal Scheduled bed rotation by staff Monitor stage I ulcer Passive range of motion by PT PT/OT assess and treat daily PROPHYLAXIS DVT- SCDs GI- Pantoprazole CODE STATUS: FULL CODE DISPOSITION: Patient will remain admitted to the ICU for mechanical ventilation likely to be extubated today. SOCIAL INFORMATION: Recently admitted and discharged to residential, but he checked himself out, will get a cognitive evaluation once awake PT/OT ordered and case management/social work consulted for discharge planning. Case was discussed with family members and conversation created a lot of discontent from their part, brother who is 2nd surrogate stated patient would not want to be resuscitated. Advanced directives were revised and patient stated he would not want to be kept alive artificially once his condition is determined to be terminal, that is not the case at this time--> code status changed PROGNOSIS: [place]- 25 on admission, predicted rate 53.5%
[2019-07-29] MEDS ORDERED: Piperacillin/Tazobactam 4.5 GM in Sodium Chloride 0.9% 100 ML IV SCH (23:00)
[2019-07-30] MEDS ORDERED: Albuterol/Ipratropium 3.0-0.5 MG/3 ML Neb Soln ONE (00:33)
[2019-07-30] MEDS: Albuterol/Ipratropium 3.0-0.5 MG/3 ML Neb Soln NEB SCH ×8 (00:55→23:06)
[2019-07-30] MEDS: Lactated Ringers 1,000 ML IV SCH (03:41)
[2019-07-30] MEDS: Piperacillin/Tazobactam 4.5 GM in Sodium Chloride 0.9% 100 ML IV SCH ×3 (06:17→22:00)
[2019-07-30] MEDS: Pantoprazole 40 MG Vial IVPUSH SCH ×2 (09:34→20:21)
[2019-07-30] MEDS ORDERED: Magnesium Sulfate/Water 4 GM in Premix Bag 1 BAG IV ONE (11:06)
[2019-07-30] MEDS: guaiFENesin 600 MG Tab.ER PO SCH ×2 (11:39→20:21)
[2019-07-30] MEDS ORDERED: Dextrose 5%-Lactated Ringers 1,000 ML IV SCH (12:30)
[2019-07-30] MEDS ORDERED: Sodium Chloride 0.9% 250 ML IV SCH (14:30)
[2019-07-30] MEDS ORDERED: Furosemide 40 MG/4 ML VIAL IVPUSH ONE (16:00)
--- NOTE | 2019-07-30 21:35 | PCM.PN ---
- General Info Date of Service: 07/30/19 Subjective Update: INTERVAL HISTORY Overnight Events: - Extubates yesterday - Removed OG tube - CXR with bilateral lower lobe infiltrates--> likely HCAP - Started on triple antibiotic coverage - Earlier in the AM dropped to 86% so was given DuoNeb and increased up to 3L Vital Signs: BP trend: 126-159/49-74 HR trend: 68-98 Tmax: 98.4 SatO2: >96% on 2L NC Drips: LR Respiratory: 3L NC I/Os: UO: 1,125 24h balance: +1212 Balance since admission: +3,270 BM: small watery BM this AM Diet: NPO Diabetes: Glucose trend: 71-99 New results: WBC: 5.07--> 14.88--> 5.67-->3.8 Hb: 9.4--> 7.8--> 7.2-->7.3 Plt: 118-->135-->89-->74 M.5-->1.3-->1.5-->1.5 GFR: 52-->42 MRSA Screen: negative Blood cultures x2 negative x 3 days Respiratory panel + Entero/Rhinovirus Step pneumonia Ag: negative - Patient Data Vitals - Most Recent: Last Vital Signs Temp 97.8 F 07/30/19 19:21 Pulse 84 07/30/19 19:21 Resp 16 07/30/19 19:21 BP 145/63 H 07/30/19 17:31 Pulse Ox 91 L 07/30/19 19:21 Weight - Most Recent: 74.072 kg - Exam Quality Assessment: Supplemental Oxygen, Central Line/PICC, Urine Catheter, DVT Prophylaxis, Skin Breakdown General: Alert, Cooperative, No Acute Distress, Lethargic HEENT: Pupils Equal, Pupils Reactive, EOMI, Mucous Membr. Moist/[place] Neck: Supple, Trachea Midline, No JVD, No Thyromegaly, +2 Carotid Pulse wo Bruit. No: Lymphadenopathy Lungs: Decreased Breath Sounds, Crackles, Rhonchi. No: Rales, Rub, Wheezing Cardiovascular: Regular Rate, Regular Rhythm. No: Murmurs, Gallops, Rubs GI/Abdominal Exam: Normal Bowel Sounds, Soft, Non-Tender. No: Distended, Guarding, Rigid, Rebound Back Exam: Normal Inspection Extremities: Other (no change from prior descriptions) Skin: Warm, Other (multiple lesions throughout) Sepsis Event Note - Evaluation Sepsis Screening Result: No Definite Risk - Focused Exam Vital Signs: Vital Signs Temp Temp Pulse Resp BP Pulse Ox Pulse Ox 07/30/19 19:21 97.8 F 84 16 91 L 07/30/19 18:19 07/30/19 17:31 99.2 F 16 145/63 H 07/30/19 16:00 98.4 F 26 H 132/64 99 07/30/19 14:58 98.5 F 22 H 145/99 H 07/30/19 14:41 99.2 F 25 H 145/55 H 07/30/19 14:15 99 07/30/19 12:00 98.8 F 22 H 144/58 H 100 07/30/19 10:50 100 Pulse Ox 07/30/19 19:21 07/30/19 18:19 93 L 07/30/19 17:31 07/30/19 16:00 07/30/19 14:58 07/30/19 14:41 07/30/19 14:15 07/30/19 12:00 07/30/19 10:50 Date Exam was Performed: 08/02/19 Time Exam was Performed: 05:53 - Problem List & Annotations (1) Unresponsive SNOMED Code(s): 159059142 Code(s): R41.89 - OTH SYMPTOMS AND SIGNS W COGNITIVE FUNCTIONS AND AWARENESS Status: Acute Current Visit: Yes (2) Hypomagnesemia SNOMED Code(s): 725075086 Code(s): E83.42 - HYPOMAGNESEMIA Status: Acute Current Visit: Yes (3) COPD (chronic obstructive pulmonary disease) SNOMED Code(s): 00347145 Code(s): J44.9 - CHRONIC OBSTRUCTIVE PULMONARY DISEASE, UNSPECIFIED Status : Chronic Priority: Medium Current Visit: No Qualifiers: COPD type: unspecified COPD Qualified Code(s): J44.9 - Chronic obstructive pulmonary disease, unspecified (4) Dementia SNOMED Code(s): 30638714 Code(s): F03.90 - UNSPECIFIED DEMENTIA WITHOUT BEHAVIORAL DISTURBANCE Status: Chronic Priority: Medium Current Visit: No Qualifiers: Dementia type: unspecified type Dementia behavioral disturbance: without behavioral disturbance Qualified Code(s): F03.90 - Unspecified dementia without behavioral disturbance (5) Diabetes mellitus SNOMED Code(s): 89679738 Code(s): E11.9 - TYPE 2 DIABETES MELLITUS WITHOUT COMPLICATIONS Status: Chronic Priority: Medium Current Visit: No Qualifiers: Diabetes mellitus type: other specified (including CESAR) Diabetes mellitus shelter insulin use: unspecified shelter insulin use status Diabetes mellitus complication status: with other specified complication Qualified Code (s): E13.69 - Other specified diabetes mellitus with other specified complication (6) Hypertension SNOMED Code(s): 32417711 Code(s): I10 - ESSENTIAL (PRIMARY) HYPERTENSION Status: Chronic Priority : Low Current Visit: No Qualifiers: Hypertension type: unspecified Qualified Code(s): I10 - Essential (primary ) hypertension (7) Anemia SNOMED Code(s): 689088830 Code(s): D64.9 - ANEMIA, UNSPECIFIED Status: Acute Current Visit: Yes (8) Hypothermia SNOMED Code(s): 280219714 Code(s): T68.XXXA - HYPOTHERMIA, INITIAL ENCOUNTER Status: Acute Current Visit: Yes (9) Hyperkalemia SNOMED Code(s): 56130385 Code(s): E87.5 - HYPERKALEMIA Status: Acute Current Visit: Yes (10) High anion gap metabolic acidosis SNOMED Code(s): 80556692 Code(s): E87.2 - ACIDOSIS Status: Acute Current Visit: Yes (11) Respiratory acidosis SNOMED Code(s): 71914803 Code(s): E87.2 - ACIDOSIS Status: Acute Current Visit: Yes (12) Normal anion gap metabolic acidosis SNOMED Code(s): 434349768 Code(s): E87.2 - ACIDOSIS Status: Acute Current Visit: Yes (13) Healthcare-associated pneumonia SNOMED Code(s): 696559831, 206807164 Code(s): J18.9 - PNEUMONIA, UNSPECIFIED ORGANISM Status: Acute Current Visit: Yes (14) Ventilator associated pneumonia SNOMED Code(s): 042769683 Code(s): J95.851 - VENTILATOR ASSOCIATED PNEUMONIA Status: Acute Current Visit: Yes - Problem List Review Problem List Initiated/Reviewed/Updated: Yes - Plan Plan:: ASSESSMENT Day 1 - Recently admitted for a fall with subsequent hip fracture--> discharged to long term out of which he checked himself out - Currently residing in a house with caregivers - As per sister in law patient was found to be less responsive for which caregivers placed him in car and took him to long term day care where they were told to call EMS - EMS reported he responded minimally to a sternal rub. Accu-Chek was 79. Initial BP 168/68. SPO2 80% on room air, up to the 90s on 5 L. His pupils were pinpoint. The patient was given 2 mg of IV Narcan, without change in his condition. - On arrival, the patient was receiving oxygen per nasal cannula--> intubated for airway protection. - Junctional rhythm with bradycardia post intubation--> given atropine - Overdose potential is very low, family members state he does not have access to medications where he stays, they are given to him Day 2 - Initially required minimal sedation, this has been off since yesterday in the AM, CPAP trial yesterday was tolerated great--> extubated - There is concern for pneumonia so will order CXR to evaluate - CXR with BL lower lobe infiltrates--> negative lactic acid --> no sepsis Day 3 - Hypoxemia episode overnight that requires increase in oxygen supplementation - -> deep suction resolved it, likely mucous plug - Flu swab, strep pneumonia negative - Respiratory panel + Enterovirus and Rhinovirus - Day 2 of vancomycin, Levaquin and Zosyn - Had some hypoglycemia episodes - Extubated yesterday - Drop in urine output, worsened PLAN BY SYSTEMS Neurologic: Starting to respond more and communicate, respond questions Avoid central acting medications Cognitive evaluation once awake Respiratory: CPT Scheduled DuoNebs q4h Incentive spirometry Guaifenesin TID ABGs as needed Continue O2 supplementation as needed to keep O2 sat >88% Cardiovascular: MAP goal > 65 Scheduled VS Renal and Electrolytes: Remove Lala catheter Monitor urine output, goal >27ml/hr Start scheduled magnesium replacement GFR mild drop associated with decreased urine our Replace magnesium Repeat labs in AM Continue LRD5 GI and hepatology: Dysphagia screen Discontinue pantoprazole Advance diet depending on screen result Endocrine and Metabolism: LRD5 NPO for now Glucose checks every 6 hours Hypoglycemia protocol Hold insulin for now Infectious Disease Continue Vancomycin, Levaquin and Zosyn day 2 F/u procalcitonin result Scheduled suctioning with DuoNebs No infectious source at this time Monitor temp Panculture if febrile Hematology, Oncology and Immune system: No signs of active bleeding Goal Hb >7 Skin/Musculoskeletal Scheduled bed rotation by staff Monitor stage I ulcer Passive range of motion by PT PT/OT assess and treat daily PROPHYLAXIS DVT- SCDs GI- not indicated CODE STATUS: DNR/ DNI DISPOSITION: Patient will remain admitted to the ICU for mechanical ventilation likely to be extubated today. Length of stay is longer than 96 hours due to suboptimal response to treatment SOCIAL INFORMATION: Recently admitted and discharged to long term, but he checked himself out, will get a cognitive evaluation once awake PT/OT ordered and case management/social work consulted for discharge planning. Case was discussed with family members and conversation created a lot of discontent from their part, brother who is 2nd surrogate stated patient would not want to be resuscitated. Advanced directives were revised and patient stated he would not want to be kept alive artificially once his condition is determined to be terminal, that was not case on admission--> code status changed--> further clarified with patient who asked to be DNR/DNI--> changed code status back PROGNOSIS: [facility] [place]- 25 on admission, predicted rate 53.5%
[2019-07-31] MEDS: Albuterol/Ipratropium 3.0-0.5 MG/3 ML Neb Soln NEB SCH ×6 (03:16→22:40)
[2019-07-31] MEDS: Piperacillin/Tazobactam 4.5 GM in Sodium Chloride 0.9% 100 ML IV SCH ×3 (05:59→22:59)
[2019-07-31] MEDS: guaiFENesin 600 MG Tab.ER PO SCH ×2 (09:47→21:31)
[2019-07-31] MEDS: Pantoprazole 40 MG Vial IVPUSH SCH (09:47)
[2019-07-31] MEDS: Potassium Chloride 10 MEQ in Premix Bag 1 BAG IV SCH ×3 (13:00→14:56)
[2019-07-31] MEDS: Levofloxacin/Dextrose 5%-Water 750 MG in Premix Bag 1 BAG IV SCH (15:20)
--- NOTE | 2019-07-31 18:59 | PCM.PN ---
- General Info Date of Service: 07/31/19 Subjective Update: INTERVAL HISTORY Overnight Events: - On RA since 10AM Vital Signs: BP trend: 128-148/49-99 HR trend: 67-97 Tmax: 98.8 SatO2: >86% (1-3L) on RA now Drips: LR Respiratory: Room air I/Os: UO: 1,200 24h balance: -306 Balance since admission: +2,964 BM: small watery BM 07/30 Diet: NPO Diabetes: Glucose trend: 71-99 New results: WBC: 5.07--> 14.88--> 5.67-->3.8-->4.46 Hb: 9.4--> 7.8--> 7.2-->7.3-->7.7 Plt: 118-->135-->89-->74-->92 M.5-->1.3-->1.5-->1.5-->1.8 GFR: 52-->42 K: 4.4-->3.3 MRSA Screen: negative Blood cultures x2 negative x 4 days Respiratory panel + Entero/Rhinovirus Step pneumonia Ag: negative - Patient Data Vitals - Most Recent: Last Vital Signs Temp 97.7 F 07/31/19 15:00 Pulse 87 07/31/19 15:00 Resp 12 07/31/19 15:00 BP 136/68 07/31/19 15:00 Pulse Ox 93 L 07/31/19 16:59 Weight - Most Recent: 71.441 kg - Exam Quality Assessment: No: Supplemental Oxygen, Central Line/PICC, Urine Catheter General: Alert, Oriented, Cooperative, No Acute Distress HEENT: Pupils Equal, Pupils Reactive, Mucous Membr. Moist/[place] Neck: Supple, Trachea Midline, No JVD, No Thyromegaly, +2 Carotid Pulse wo Bruit. No: Lymphadenopathy Lungs: Decreased Breath Sounds, Crackles. No: Rales, Rhonchi, Rub, Stridor, Wheezing Cardiovascular: Regular Rate, Regular Rhythm. No: Murmurs, Gallops, Rubs GI/Abdominal Exam: Normal Bowel Sounds, Soft, Non-Tender, No Organomegaly, No Distention. No: Distended, Guarding, Rigid, Rebound Back Exam: Normal Inspection. No: CVA Tenderness (L), CVA Tenderness (R), Paraspinal Tenderness, Vertebral Tenderness Extremities: Other (laceration has increased surrounding erythema) Skin: Cool Wound/Incisions: Drainage, Erythema, Other (unstageable 2cm x 2cm ulcer above buttocks midline) Neurological: No New Focal Deficit Psy/Mental Status: Alert Sepsis Event Note - Evaluation Sepsis Screening Result: No Definite Risk - Focused Exam Vital Signs: Vital Signs Temp Pulse Resp BP Pulse Ox Pulse Ox 07/31/19 16:59 93 L 07/31/19 15:00 97.7 F 87 12 136/68 93 L 07/31/19 13:08 95 07/31/19 09:19 95 07/31/19 08:00 97.5 F 76 20 154/68 H 99 Date Exam was Performed: 08/02/19 Time Exam was Performed: 06:23 - Problem List & Annotations (1) Unresponsive SNOMED Code(s): 888105576 Code(s): R41.89 - OTH SYMPTOMS AND SIGNS W COGNITIVE FUNCTIONS AND AWARENESS Status: Acute Current Visit: Yes (2) Hypomagnesemia SNOMED Code(s): 679225129 Code(s): E83.42 - HYPOMAGNESEMIA Status: Acute Current Visit: Yes (3) COPD (chronic obstructive pulmonary disease) SNOMED Code(s): 95074100 Code(s): J44.9 - CHRONIC OBSTRUCTIVE PULMONARY DISEASE, UNSPECIFIED Status : Chronic Priority: Medium Current Visit: No Qualifiers: COPD type: unspecified COPD Qualified Code(s): J44.9 - Chronic obstructive pulmonary disease, unspecified (4) Dementia SNOMED Code(s): 84837365 Code(s): F03.90 - UNSPECIFIED DEMENTIA WITHOUT BEHAVIORAL DISTURBANCE Status: Chronic Priority: Medium Current Visit: No Qualifiers: Dementia type: unspecified type Dementia behavioral disturbance: without behavioral disturbance Qualified Code(s): F03.90 - Unspecified dementia without behavioral disturbance (5) Diabetes mellitus SNOMED Code(s): 60212353 Code(s): E11.9 - TYPE 2 DIABETES MELLITUS WITHOUT COMPLICATIONS Status: Chronic Priority: Medium Current Visit: No Qualifiers: Diabetes mellitus type: other specified (including CESAR) Diabetes mellitus terminal press operator insulin use: unspecified terminal press operator insulin use status Diabetes mellitus complication status: with other specified complication Qualified Code (s): E13.69 - Other specified diabetes mellitus with other specified complication (6) Hypertension SNOMED Code(s): 18067575 Code(s): I10 - ESSENTIAL (PRIMARY) HYPERTENSION Status: Chronic Priority : Low Current Visit: No Qualifiers: Hypertension type: unspecified Qualified Code(s): I10 - Essential (primary ) hypertension (7) Anemia SNOMED Code(s): 994157669 Code(s): D64.9 - ANEMIA, UNSPECIFIED Status: Acute Current Visit: Yes (8) Hypothermia SNOMED Code(s): 734736253 Code(s): T68.XXXA - HYPOTHERMIA, INITIAL ENCOUNTER Status: Acute Current Visit: Yes (9) Hyperkalemia SNOMED Code(s): 71895022 Code(s): E87.5 - HYPERKALEMIA Status: Acute Current Visit: Yes (10) High anion gap metabolic acidosis SNOMED Code(s): 32877644 Code(s): E87.2 - ACIDOSIS Status: Acute Current Visit: Yes (11) Respiratory acidosis SNOMED Code(s): 42794802 Code(s): E87.2 - ACIDOSIS Status: Acute Current Visit: Yes (12) Normal anion gap metabolic acidosis SNOMED Code(s): 083108597 Code(s): E87.2 - ACIDOSIS Status: Acute Current Visit: Yes (13) Unstageable decubitus ulcer SNOMED Code(s): 335878701 Code(s): L89.95 - PRESSURE ULCER OF UNSPECIFIED SITE, UNSTAGEABLE Status: Acute Current Visit: Yes (14) Healthcare-associated pneumonia SNOMED Code(s): 185139833, 033737065 Code(s): J18.9 - PNEUMONIA, UNSPECIFIED ORGANISM Status: Acute Current Visit: Yes (15) Ventilator associated pneumonia SNOMED Code(s): 644256885 Code(s): J95.851 - VENTILATOR ASSOCIATED PNEUMONIA Status: Acute Current Visit: Yes - Problem List Review Problem List Initiated/Reviewed/Updated: Yes - Plan Plan:: ASSESSMENT Day 1 - Recently admitted for a fall with subsequent hip fracture--> discharged to residential out of which he checked himself out - Currently residing in a house with caregivers - As per sister in law patient was found to be less responsive for which caregivers placed him in car and took him to residential day care where they were told to call EMS - EMS reported he responded minimally to a sternal rub. Accu-Chek was 79. Initial BP 168/68. SPO2 80% on room air, up to the 90s on 5 L. His pupils were pinpoint. The patient was given 2 mg of IV Narcan, without change in his condition. - On arrival, the patient was receiving oxygen per nasal cannula--> intubated for airway protection. - Junctional rhythm with bradycardia post intubation--> given atropine - Overdose potential is very low, family members state he does not have access to medications where he stays, they are given to him Day 2 - Initially required minimal sedation, this has been off since yesterday in the AM, CPAP trial yesterday was tolerated great--> extubated - There is concern for pneumonia so will order CXR to evaluate - CXR with BL lower lobe infiltrates--> negative lactic acid --> no sepsis Day 3 - Hypoxemia episode overnight that requires increase in oxygen supplementation - -> deep suction resolved it, likely mucous plug - Flu swab, strep pneumonia negative - Respiratory panel + Enterovirus and Rhinovirus - Day 2 of vancomycin, Levaquin and Zosyn - Had some hypoglycemia episodes - Extubated yesterday - Drop in urine output, worsened Day 4 - Urine output increased - BRANDT resolved - Off oxygen supplementation since 10AM - Mildly elevated procalcitonin - MRSA negative --> D/C vancomycin PLAN BY SYSTEMS Neurologic: Avoid central acting medications Cognitive evaluation once awake Respiratory: CPT Scheduled DuoNebs q4h Incentive spirometry Guaifenesin TID ABGs as needed Keep O2 sat >88% Cardiovascular: MAP goal > 65 Scheduled VS Renal and Electrolytes: Monitor urine output Continue scheduled magnesium replacement Repeat labs in AM Discontinue LR GI and hepatology: Swallow evaluation today NPO until dietary recommendations are in Endocrine and Metabolism: NPO for now Glucose checks every 6 hours Hypoglycemia protocol Hold insulin for now Infectious Disease Continue Levaquin and Zosyn day 3 Discontinue Vancomycin Scheduled suctioning with DuoNebs Monitor temp Panculture if febrile Hematology, Oncology and Immune system: No signs of active bleeding Goal Hb >7 Skin/Musculoskeletal Scheduled bed rotation by staff PT wound care Passive range of motion by PT PT/OT assess and treat daily PROPHYLAXIS DVT- SCDs GI- not indicated CODE STATUS: DNR/ DNI DISPOSITION: Patient will remain admitted but will be downgraded the medical floor, swallow evaluation, continue IV antibiotics. Length of stay is longer than 96 hours due to suboptimal response to treatment SOCIAL INFORMATION: Recently admitted and discharged to residential, but he checked himself out, will get a cognitive evaluation once awake PT/OT ordered and case management/social work consulted for discharge planning. Case was discussed with family members and conversation created a lot of discontent from their part, brother who is 2nd surrogate stated patient would not want to be resuscitated. Advanced directives were revised and patient stated he would not want to be kept alive artificially once his condition is determined to be terminal, that was not case on admission--> code status changed--> further clarified with patient who asked to be DNR/DNI--> changed code status back
[2019-07-31] MEDS ORDERED: Sodium Chloride 0.9% 250 ML ONE (21:24)
[2019-07-31] MEDS: Pantoprazole 40 MG Tab.CR PO SCH (21:31)
[2019-08-01] MEDS: Albuterol/Ipratropium 3.0-0.5 MG/3 ML Neb Soln NEB SCH ×6 (02:48→20:51)
--- NOTE | 2019-08-01 06:35 | PCM.PN ---
- General Info Date of Service: 08/01/19 Subjective Update: Slept OK BM 07/30 Tolerating mechanical soft diet No complaints - Patient Data Vitals - Most Recent: Last Vital Signs Temp 98.4 F 08/01/19 02:59 Pulse 72 08/01/19 02:59 Resp 20 08/01/19 02:59 BP 153/67 H 08/01/19 02:59 Pulse Ox 94 L 08/01/19 03:02 Weight - Most Recent: 71.94 kg - Exam General: Alert, Cooperative, No Acute Distress HEENT: Pupils Equal, Pupils Reactive, Mucous Membr. Moist/[place] Neck: Supple, No JVD, No Thyromegaly, +2 Carotid Pulse wo Bruit Lungs: Decreased Breath Sounds, Crackles. No: Rales, Rhonchi, Rub, Stridor, Wheezing Cardiovascular: Regular Rate, Regular Rhythm. No: Murmurs, Gallops, Rubs GI/Abdominal Exam: Normal Bowel Sounds, Soft, Non-Tender, No Organomegaly, No Distention. No: Guarding, Rigid, Rebound Back Exam: Normal Inspection. No: CVA Tenderness (L), CVA Tenderness (R) Extremities: Other (the second toe on the left has a tunneling wound with foul smell and drainage as well as obvious fibrin and purulent discharge) Skin: Warm Wound/Incisions: Drainage, Erythema Neurological: No New Focal Deficit Psy/Mental Status: Alert Sepsis Event Note - Evaluation Sepsis Screening Result: No Definite Risk - Focused Exam Vital Signs: Vital Signs Temp Pulse Resp BP Pulse Ox Pulse Ox 08/01/19 03:02 94 L 08/01/19 02:59 98.4 F 72 20 153/67 H 08/01/19 02:57 94 L 07/31/19 22:41 92 L 07/31/19 20:45 98.2 F 67 22 H 137/92 H 91 L Date Exam was Performed: 08/02/19 Time Exam was Performed: 16:07 - Problem List & Annotations (1) Unresponsive SNOMED Code(s): 770922389 Code(s): R41.89 - OTH SYMPTOMS AND SIGNS W COGNITIVE FUNCTIONS AND AWARENESS Status: Acute Current Visit: Yes (2) Hypomagnesemia SNOMED Code(s): 020766935 Code(s): E83.42 - HYPOMAGNESEMIA Status: Acute Current Visit: Yes (3) COPD (chronic obstructive pulmonary disease) SNOMED Code(s): 28313104 Code(s): J44.9 - CHRONIC OBSTRUCTIVE PULMONARY DISEASE, UNSPECIFIED Status : Chronic Priority: Medium Current Visit: No Qualifiers: COPD type: unspecified COPD Qualified Code(s): J44.9 - Chronic obstructive pulmonary disease, unspecified (4) Dementia SNOMED Code(s): 03054307 Code(s): F03.90 - UNSPECIFIED DEMENTIA WITHOUT BEHAVIORAL DISTURBANCE Status: Chronic Priority: Medium Current Visit: No Qualifiers: Dementia type: unspecified type Dementia behavioral disturbance: without behavioral disturbance Qualified Code(s): F03.90 - Unspecified dementia without behavioral disturbance (5) Diabetes mellitus SNOMED Code(s): 33829092 Code(s): E11.9 - TYPE 2 DIABETES MELLITUS WITHOUT COMPLICATIONS Status: Chronic Priority: Medium Current Visit: No Qualifiers: Diabetes mellitus type: other specified (including CESAR) Diabetes mellitus manager intermediate insulin use: unspecified manager intermediate insulin use status Diabetes mellitus complication status: with other specified complication Qualified Code (s): E13.69 - Other specified diabetes mellitus with other specified complication (6) Hypertension SNOMED Code(s): 27095362 Code(s): I10 - ESSENTIAL (PRIMARY) HYPERTENSION Status: Chronic Priority : Low Current Visit: No Qualifiers: Hypertension type: unspecified Qualified Code(s): I10 - Essential (primary ) hypertension (7) Anemia SNOMED Code(s): 372986654 Code(s): D64.9 - ANEMIA, UNSPECIFIED Status: Acute Current Visit: Yes (8) Hypothermia SNOMED Code(s): 014650626 Code(s): T68.XXXA - HYPOTHERMIA, INITIAL ENCOUNTER Status: Acute Current Visit: Yes (9) Hyperkalemia SNOMED Code(s): 65593904 Code(s): E87.5 - HYPERKALEMIA Status: Acute Current Visit: Yes (10) High anion gap metabolic acidosis SNOMED Code(s): 31518854 Code(s): E87.2 - ACIDOSIS Status: Acute Current Visit: Yes (11) Respiratory acidosis SNOMED Code(s): 09282493 Code(s): E87.2 - ACIDOSIS Status: Acute Current Visit: Yes (12) Normal anion gap metabolic acidosis SNOMED Code(s): 513833018 Code(s): E87.2 - ACIDOSIS Status: Acute Current Visit: Yes (13) Hypoxemia SNOMED Code(s): 140355006 Code(s): R09.02 - HYPOXEMIA Status: Acute Current Visit: Yes (14) Acute kidney injury SNOMED Code(s): 46105458, 21439396 Code(s): N17.9 - ACUTE KIDNEY FAILURE, UNSPECIFIED Status: Acute Current Visit: Yes (15) Healthcare-associated pneumonia SNOMED Code(s): 749079513, 456681469 Code(s): J18.9 - PNEUMONIA, UNSPECIFIED ORGANISM Status: Acute Current Visit: Yes (16) Unstageable decubitus ulcer SNOMED Code(s): 533884218 Code(s): L89.95 - PRESSURE ULCER OF UNSPECIFIED SITE, UNSTAGEABLE Status: Acute Current Visit: Yes (17) Ventilator associated pneumonia SNOMED Code(s): 228239244 Code(s): J95.851 - VENTILATOR ASSOCIATED PNEUMONIA Status: Acute Current Visit: Yes (18) Ulcer of toe of left foot SNOMED Code(s): 141209106 Code(s): L97.529 - NON-PRESSURE CHRONIC ULCER OTH PRT LEFT FOOT W UNSP SEVERITY Status: Acute Current Visit: Yes - Problem List Review Problem List Initiated/Reviewed/Updated: Yes - Plan Plan:: ASSESSMENT Day 1 - Recently admitted for a fall with subsequent hip fracture--> discharged to custodial out of which he checked himself out - Currently residing in a house with caregivers - As per sister in law patient was found to be less responsive for which caregivers placed him in car and took him to custodial day care where they were told to call EMS - EMS reported he responded minimally to a sternal rub. Accu-Chek was 79. Initial BP 168/68. SPO2 80% on room air, up to the 90s on 5 L. His pupils were pinpoint. The patient was given 2 mg of IV Narcan, without change in his condition. - On arrival, the patient was receiving oxygen per nasal cannula--> intubated for airway protection. - Junctional rhythm with bradycardia post intubation--> given atropine - Overdose potential is very low, family members state he does not have access to medications where he stays, they are given to him Day 2 - Initially required minimal sedation, this has been off since yesterday in the AM, CPAP trial yesterday was tolerated great--> extubated - There is concern for pneumonia so will order CXR to evaluate - CXR with BL lower lobe infiltrates--> negative lactic acid --> no sepsis Day 3 - Hypoxemia episode overnight that requires increase in oxygen supplementation - -> deep suction resolved it, likely mucous plug - Flu swab, strep pneumonia negative - Respiratory panel + Enterovirus and Rhinovirus - Day 2 of vancomycin, Levaquin and Zosyn - Had some hypoglycemia episodes - Extubated yesterday - Drop in urine output, worsened Day 4 - Urine output increased - BRANDT resolved - Off oxygen supplementation since 10AM - Mildly elevated procalcitonin - MRSA negative --> D/C vancomycin Day 5 - Nursing reported a new wound on the bottom of his second toe of the left foot - Evaluated wound--> it covers the whole plantar surface of that toe, has drainage of serosanguineous fluid, has a foul smell and tunneling--> cultured - Likely a diabetic foot ulcer, no pain or any complaints by patient even when culture swab was inserted in tunnel - Scheduled potassium and magnesium replacement - Consulted occupational therapy - Will need speech therapy upon discharge - Activity as tolerated - Sputum culture should be resulted today - Required oxygen supplementation again, so he is currently on 1L NC - Glucose trend: 166-206 - BP trend: 132-159/62-68--> controlled for age - GFR improving PLAN BY PROBLEM Healthcare-associated vs. Ventilator associated pneumonia Acute hypoxemic respiratory failure - Continue O2 supplementation - Continue Levaquin and Zosyn day 4 - Follow up on procalcitonin result - DuoNebs changed from q4h to q8h - Incentive spirometry - Monitor for fever and panculture if febrile - CPT - Guaifenesin TID - Keep O2 sat >88% Ulcer of toe of left foot - Culture sent - Evaluate for MRI in AM - Wound care by PT Unstageable decubitus ulcer - Wound care by PT Diabetes mellitus - Continue insulin BID - Accuchecks - Hypoglycemia protocol Hypertension - Monitor - No need for medications at this time Multiple metabolic abnormalities - Increase scheduled magnesium replacement - Scheduled potassium replacement Dementia - Let me sleep protocol - Encourage daytime wakefulness - Speech, occupational and physical therapy upon discharge Anemia - Monitor daily - Transfuse if drops < 7 Unresponsive on admission, resolved Hypothermia, resolved High anion gap metabolic acidosis Respiratory acidosis Non-gap metabolic acidosis PROPHYLAXIS DVT- SCDs GI- not indicated CODE STATUS: DNR/ DNI DISPOSITION: Patient will remain admitted but will be downgraded the medical floor, swallow evaluation, continue IV antibiotics. Length of stay is longer than 96 hours due to suboptimal response to treatment SOCIAL INFORMATION: Recently admitted and discharged to custodial, but he checked himself out, will get a cognitive evaluation once awake PT/OT ordered and case management/social work consulted for discharge planning. Case was discussed with family members and conversation created a lot of discontent from their part, brother who is 2nd surrogate stated patient would not want to be resuscitated. Advanced directives were revised and patient stated he would not want to be kept alive artificially once his condition is determined to be terminal, that was not case on admission--> code status changed--> further clarified with patient who asked to be DNR/DNI--> changed code status back
[2019-08-01] MEDS: Piperacillin/Tazobactam 4.5 GM in Sodium Chloride 0.9% 100 ML IV SCH ×2 (07:41→16:19)
[2019-08-01] MEDS: Pantoprazole 40 MG Tab.CR PO SCH ×2 (09:18→21:14)
[2019-08-01] MEDS: guaiFENesin 600 MG Tab.ER PO SCH ×2 (09:18→21:14)
[2019-08-01] MEDS ORDERED: Magnesium Sulfate/Water 4 GM in Premix Bag 1 BAG IV ONE (11:30)
[2019-08-01] MEDS: Potassium Chloride 20 MEQ Tab.ER PO SCH ×3 (12:42→21:14)
[2019-08-01] MEDS ORDERED: Albuterol/Ipratropium 3.0-0.5 MG/3 ML Neb Soln NEB SCH (17:00)
[2019-08-02] MEDS: Piperacillin/Tazobactam 4.5 GM in Sodium Chloride 0.9% 100 ML IV SCH ×3 (01:20→17:10)
[2019-08-02] MEDS: Albuterol/Ipratropium 3.0-0.5 MG/3 ML Neb Soln NEB SCH ×3 (06:28→20:33)
[2019-08-02] MEDS: Potassium Chloride 20 MEQ Tab.ER PO SCH ×3 (09:53→21:50)
[2019-08-02] MEDS: Pantoprazole 40 MG Tab.CR PO SCH ×2 (09:53→21:51)
[2019-08-02] MEDS: guaiFENesin 600 MG Tab.ER PO SCH ×2 (09:53→21:51)
[2019-08-02] MEDS ORDERED: Gadobenate Dimeglumine 529 MG/ML 15 ML SDV IVPUSH ONE (12:41)
[2019-08-02] MEDS ORDERED: Sodium Chloride 0.9% 10 ML Syringe FLUSH SCH (12:45)
--- NOTE | 2019-08-02 14:43 | PCM.PN ---
- General Info Date of Service: 08/02/19 Subjective Update: Slept OK BM 08/01 Tolerating mechanical soft diet No complaints No pain No aggressive episodes - Patient Data Vitals - Most Recent: Last Vital Signs Temp 95.5 F L 08/02/19 01:45 Pulse 63 08/02/19 01:45 Resp 20 08/02/19 01:45 BP 173/70 H 08/02/19 01:45 Pulse Ox 92 L 08/02/19 06:30 Weight - Most Recent: 71.94 kg - Exam Quality Assessment: Supplemental Oxygen General: Alert, Cooperative, No Acute Distress HEENT: Pupils Equal, Pupils Reactive, Mucous Membr. Moist/[place] Neck: Supple, Trachea Midline, No JVD, No Thyromegaly, +2 Carotid Pulse wo Bruit. No: Lymphadenopathy Lungs: Normal Respiratory Effort, Crackles. No: Rales, Rhonchi, Rub, Stridor, Wheezing Cardiovascular: Regular Rate, Regular Rhythm. No: Murmurs, Gallops, Rubs GI/Abdominal Exam: Normal Bowel Sounds, Soft, Non-Tender. No: Distended, Guarding, Rigid, Rebound Back Exam: Normal Inspection. No: CVA Tenderness (L), CVA Tenderness (R), Paraspinal Tenderness, Vertebral Tenderness Extremities: Other (wound dressing over left vásquez without soiling, wound dressing under toes soaked in yellowish foul smelling fluid) Wound/Incisions: Dressing Dry and Intact, Drainage, Erythema Neurological: No New Focal Deficit Psy/Mental Status: Alert Sepsis Event Note - Evaluation Sepsis Screening Result: No Definite Risk - Focused Exam Vital Signs: Vital Signs Pulse Ox 08/02/19 06:30 92 L Date Exam was Performed: 08/02/19 Time Exam was Performed: 16:19 - Problem List & Annotations (1) Unresponsive SNOMED Code(s): 684086782 Code(s): R41.89 - OTH SYMPTOMS AND SIGNS W COGNITIVE FUNCTIONS AND AWARENESS Status: Acute Current Visit: Yes (2) Hypomagnesemia SNOMED Code(s): 763510390 Code(s): E83.42 - HYPOMAGNESEMIA Status: Acute Current Visit: Yes (3) COPD (chronic obstructive pulmonary disease) SNOMED Code(s): 65714067 Code(s): J44.9 - CHRONIC OBSTRUCTIVE PULMONARY DISEASE, UNSPECIFIED Status : Chronic Priority: Medium Current Visit: No Qualifiers: COPD type: unspecified COPD Qualified Code(s): J44.9 - Chronic obstructive pulmonary disease, unspecified (4) Dementia SNOMED Code(s): 61705201 Code(s): F03.90 - UNSPECIFIED DEMENTIA WITHOUT BEHAVIORAL DISTURBANCE Status: Chronic Priority: Medium Current Visit: No Qualifiers: Dementia type: unspecified type Dementia behavioral disturbance: without behavioral disturbance Qualified Code(s): F03.90 - Unspecified dementia without behavioral disturbance (5) Diabetes mellitus SNOMED Code(s): 72919707 Code(s): E11.9 - TYPE 2 DIABETES MELLITUS WITHOUT COMPLICATIONS Status: Chronic Priority: Medium Current Visit: No Qualifiers: Diabetes mellitus type: other specified (including CESAR) Diabetes mellitus keno terminal operator insulin use: unspecified keno terminal operator insulin use status Diabetes mellitus complication status: with other specified complication Qualified Code (s): E13.69 - Other specified diabetes mellitus with other specified complication (6) Hypertension SNOMED Code(s): 61265320 Code(s): I10 - ESSENTIAL (PRIMARY) HYPERTENSION Status: Chronic Priority : Low Current Visit: No Qualifiers: Hypertension type: unspecified Qualified Code(s): I10 - Essential (primary ) hypertension (7) Anemia SNOMED Code(s): 271853297 Code(s): D64.9 - ANEMIA, UNSPECIFIED Status: Acute Current Visit: Yes (8) Hypothermia SNOMED Code(s): 862023676 Code(s): T68.XXXA - HYPOTHERMIA, INITIAL ENCOUNTER Status: Acute Current Visit: Yes (9) Hyperkalemia SNOMED Code(s): 04461182 Code(s): E87.5 - HYPERKALEMIA Status: Acute Current Visit: Yes (10) High anion gap metabolic acidosis SNOMED Code(s): 01749112 Code(s): E87.2 - ACIDOSIS Status: Acute Current Visit: Yes (11) Respiratory acidosis SNOMED Code(s): 52262481 Code(s): E87.2 - ACIDOSIS Status: Acute Current Visit: Yes (12) Normal anion gap metabolic acidosis SNOMED Code(s): 074489662 Code(s): E87.2 - ACIDOSIS Status: Acute Current Visit: Yes (13) Hypoxemia SNOMED Code(s): 674517373 Code(s): R09.02 - HYPOXEMIA Status: Acute Current Visit: Yes (14) Acute kidney injury SNOMED Code(s): 61825381, 33170090 Code(s): N17.9 - ACUTE KIDNEY FAILURE, UNSPECIFIED Status: Acute Current Visit: Yes (15) Healthcare-associated pneumonia SNOMED Code(s): 042892016, 530242158 Code(s): J18.9 - PNEUMONIA, UNSPECIFIED ORGANISM Status: Acute Current Visit: Yes (16) Unstageable decubitus ulcer SNOMED Code(s): 146868311 Code(s): L89.95 - PRESSURE ULCER OF UNSPECIFIED SITE, UNSTAGEABLE Status: Acute Current Visit: Yes (17) Ventilator associated pneumonia SNOMED Code(s): 601724620 Code(s): J95.851 - VENTILATOR ASSOCIATED PNEUMONIA Status: Acute Current Visit: Yes (18) Ulcer of toe of left foot SNOMED Code(s): 078007897 Code(s): L97.529 - NON-PRESSURE CHRONIC ULCER OTH PRT LEFT FOOT W UNSP SEVERITY Status: Acute Current Visit: Yes - Problem List Review Problem List Initiated/Reviewed/Updated: Yes - Plan Plan:: ASSESSMENT Day 1 - Recently admitted for a fall with subsequent hip fracture--> discharged to retirement out of which he checked himself out - Currently residing in a house with caregivers - As per sister in law patient was found to be less responsive for which caregivers placed him in car and took him to retirement day care where they were told to call EMS - EMS reported he responded minimally to a sternal rub. Accu-Chek was 79. Initial BP 168/68. SPO2 80% on room air, up to the 90s on 5 L. His pupils were pinpoint. The patient was given 2 mg of IV Narcan, without change in his condition. - On arrival, the patient was receiving oxygen per nasal cannula--> intubated for airway protection. - Junctional rhythm with bradycardia post intubation--> given atropine - Overdose potential is very low, family members state he does not have access to medications where he stays, they are given to him Day 2 - Initially required minimal sedation, this has been off since yesterday in the AM, CPAP trial yesterday was tolerated great--> extubated - There is concern for pneumonia so will order CXR to evaluate - CXR with BL lower lobe infiltrates--> negative lactic acid --> no sepsis Day 3 - Hypoxemia episode overnight that requires increase in oxygen supplementation - -> deep suction resolved it, likely mucous plug - Flu swab, strep pneumonia negative - Respiratory panel + Enterovirus and Rhinovirus - Day 2 of vancomycin, Levaquin and Zosyn - Had some hypoglycemia episodes - Extubated yesterday - Drop in urine output, worsened Day 4 - Urine output increased - BRANDT resolved - Off oxygen supplementation since 10AM - Mildly elevated procalcitonin - MRSA negative --> D/C vancomycin Day 5 - Nursing reported a new wound on the bottom of his second toe of the left foot - Evaluated wound--> it covers the whole plantar surface of that toe, has drainage of serosanguineous fluid, has a foul smell and tunneling--> cultured - Likely a diabetic foot ulcer, no pain or any complaints by patient even when culture swab was inserted in tunnel - Scheduled potassium and magnesium replacement - Consulted occupational therapy - Will need speech therapy upon discharge - Activity as tolerated - Sputum culture should be resulted today - Required oxygen supplementation again, so he is currently on 1L NC - Glucose trend: 166-206 - BP trend: 132-159/62-68--> controlled for age - GFR improving Day 6 - Day 5 of Zosyn and Vancomycin - Foot wound needs coverage for MRSA--> restart Vancomycin - BP trend:145-173/67-100 - Glucose trend: 144-293 - Back on 2L NC - PT/OT recommending SNF with PT/OT - Diet recommendations for mechanical soft PLAN BY PROBLEM Healthcare-associated vs. Ventilator associated pneumonia Acute hypoxemic respiratory failure - Continue O2 supplementation - Continue Levaquin and Zosyn day 5 - Follow up on procalcitonin result - DuoNebs q8h - Incentive spirometry - Monitor for fever and panculture if febrile - CPT - Guaifenesin TID - Keep O2 sat >88% Ulcer of toe of left foot - Restart vancomycin - Culture sent - MRI today - Wound care by PT Unstageable decubitus ulcer - Wound care by PT Diabetes mellitus - Continue insulin BID - Accuchecks - Hypoglycemia protocol Hypertension - Monitor - No need for medications at this time Multiple metabolic abnormalities - Increase scheduled magnesium replacement - Scheduled potassium replacement Dementia Malnutrition - Let me sleep protocol - Encourage daytime wakefulness - Speech, occupational and physical therapy upon discharge - Mechanical soft diet - Supplementation with magic cup and ensure Anemia - Monitor daily - Transfuse if drops < 7 Unresponsive on admission, resolved Hypothermia, resolved High anion gap metabolic acidosis Respiratory acidosis Non-gap metabolic acidosis PROPHYLAXIS DVT- SCDs GI- not indicated CODE STATUS: DNR/ DNI DISPOSITION: Patient will remain admitted in medical floor with PT for wound care as well as physical therapy, OT on case as well as speech therapy. [facility] is pending response but [facility] has declined him. Length of stay is longer than 96 hours due to suboptimal response to treatment SOCIAL INFORMATION: Recently admitted and discharged to retirement, but he checked himself out, will get a cognitive evaluation once awake PT/OT ordered and case management/social work consulted for discharge planning. Case was discussed with family members and conversation created a lot of discontent from their part, brother who is 2nd surrogate stated patient would not want to be resuscitated. Advanced directives were revised and patient stated he would not want to be kept alive artificially once his condition is determined to be terminal, that was not case on admission--> code status changed--> further clarified with patient who asked to be DNR/DNI--> changed code status back APS updated
--- NOTE | 2019-08-02 15:21 | MR ---
MRI left foot Technique: T1 and fat suppressed inversion recovery sagittal; T2 fat suppressed and T2 coronal; T1 fat suppressed and T2 fat suppressed axial; T1 fat- suppressed postcontrast axial, coronal and sagittal images were obtained. Limitations: Diffuse motion is seen. This severely limits details of the exam. Findings: Diffuse soft tissue edema is seen. Findings presumably due to diffuse cellulitis. 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 Increased signal is seen within the remaining portions of the 1st metatarsal compatible with edema. There is also some enhancement in the same area which is felt compatible with osteomyelitis within the 1st metatarsal. Mild edema is noted within the 2nd metatarsal head minimal surrounding enhancement is seen and findings are suspicious for early osteomyelitis. Slight edema is noted within the 4th metatarsal head which also show slight enhancement and is suspicious for early osteomyelitis. Diffusely abnormal signal is seen within the proximal and distal phalanx of the 2nd and 3rd digits compatible with more prominent osteomyelitis. No additional abnormality is definitely appreciated. Impression: 1. Areas of increased signal and enhancement within the 1st metatarsal as well as distal 2nd and 4th metatarsal heads suggesting early osteomyelitis. 2. More prominent osteomyelitis within the toes of the 2nd and 3rd digits. 3. Diffuse cellulitis. Note: Details are somewhat diminished due to motion. Diagnostic code #5 This report was dictated in MDT MTDD
[2019-08-02] MEDS: Levofloxacin/Dextrose 5%-Water 750 MG in Premix Bag 1 BAG IV SCH (15:35)
[2019-08-03] MEDS ORDERED: Piperacillin/Tazobactam 4.5 GM in Sodium Chloride 0.9% 100 ML IV SCH (03:00)
[2019-08-03] MEDS: Albuterol/Ipratropium 3.0-0.5 MG/3 ML Neb Soln NEB SCH ×3 (05:44→20:41)
[2019-08-03] MEDS: Potassium Chloride 20 MEQ Tab.ER PO SCH (09:11)
[2019-08-03] MEDS: Pantoprazole 40 MG Tab.CR PO SCH ×2 (09:13→20:55)
[2019-08-03] MEDS: guaiFENesin 600 MG Tab.ER PO SCH ×2 (09:13→20:55)
[2019-08-03] MEDS: Piperacillin/Tazobactam 4.5 GM in Sodium Chloride 0.9% 100 ML IV SCH ×2 (09:16→18:45)
--- NOTE | 2019-08-03 12:48 | PCM.PN ---
- General Info Date of Service: 08/03/19 Subjective Update: BM today Slept OK Tolerating mechanical soft diet - Patient Data Vitals - Most Recent: Last Vital Signs Temp 98.1 F 08/03/19 03:04 Pulse 65 08/03/19 03:04 Resp 20 08/03/19 03:04 BP 131/87 08/03/19 03:04 Pulse Ox 94 L 08/03/19 05:45 Weight - Most Recent: 68.356 kg - Exam General: Alert, Cooperative, No Acute Distress. No: Oriented HEENT: Pupils Equal, Pupils Reactive, EOMI, Mucous Membr. Moist/[place] Neck: Supple, Trachea Midline, No JVD, No Thyromegaly, +2 Carotid Pulse wo Bruit. No: Lymphadenopathy Lungs: Decreased Breath Sounds, Crackles. No: Rales, Rhonchi, Rub, Stridor, Wheezing Cardiovascular: Regular Rate, Regular Rhythm. No: Murmurs, Gallops, Rubs GI/Abdominal Exam: Normal Bowel Sounds, Soft, Non-Tender. No: Distended, Guarding, Rigid, Rebound Back Exam: Normal Inspection. No: CVA Tenderness (L), CVA Tenderness (R), Paraspinal Tenderness, Vertebral Tenderness Extremities: Other (2nd toe on left foot with tunneling ulcer with fibrin and foul smell on plantar side ) Sepsis Event Note - Evaluation Sepsis Screening Result: No Definite Risk - Focused Exam Vital Signs: Vital Signs Temp Pulse Resp BP Pulse Ox Pulse Ox 08/03/19 05:45 94 L 08/03/19 03:04 98.1 F 65 20 131/87 95 Date Exam was Performed: 08/04/19 Time Exam was Performed: 13:06 - Problem List & Annotations (1) Unresponsive SNOMED Code(s): 917037811 Code(s): R41.89 - OTH SYMPTOMS AND SIGNS W COGNITIVE FUNCTIONS AND AWARENESS Status: Acute Current Visit: Yes (2) Hypomagnesemia SNOMED Code(s): 214366796 Code(s): E83.42 - HYPOMAGNESEMIA Status: Acute Current Visit: Yes (3) COPD (chronic obstructive pulmonary disease) SNOMED Code(s): 89593631 Code(s): J44.9 - CHRONIC OBSTRUCTIVE PULMONARY DISEASE, UNSPECIFIED Status : Chronic Priority: Medium Current Visit: No Qualifiers: COPD type: unspecified COPD Qualified Code(s): J44.9 - Chronic obstructive pulmonary disease, unspecified (4) Dementia SNOMED Code(s): 98911294 Code(s): F03.90 - UNSPECIFIED DEMENTIA WITHOUT BEHAVIORAL DISTURBANCE Status: Chronic Priority: Medium Current Visit: No Qualifiers: Dementia type: unspecified type Dementia behavioral disturbance: without behavioral disturbance Qualified Code(s): F03.90 - Unspecified dementia without behavioral disturbance (5) Diabetes mellitus SNOMED Code(s): 87018878 Code(s): E11.9 - TYPE 2 DIABETES MELLITUS WITHOUT COMPLICATIONS Status: Chronic Priority: Medium Current Visit: No Qualifiers: Diabetes mellitus type: other specified (including CESAR) Diabetes mellitus nursing home insulin use: unspecified equipment operator intermodal yard insulin use status Diabetes mellitus complication status: with other specified complication Qualified Code (s): E13.69 - Other specified diabetes mellitus with other specified complication (6) Hypertension SNOMED Code(s): 08289036 Code(s): I10 - ESSENTIAL (PRIMARY) HYPERTENSION Status: Chronic Priority : Low Current Visit: No Qualifiers: Hypertension type: unspecified Qualified Code(s): I10 - Essential (primary ) hypertension (7) Anemia SNOMED Code(s): 339452078 Code(s): D64.9 - ANEMIA, UNSPECIFIED Status: Acute Current Visit: Yes (8) Hypothermia SNOMED Code(s): 039368932 Code(s): T68.XXXA - HYPOTHERMIA, INITIAL ENCOUNTER Status: Acute Current Visit: Yes (9) Hyperkalemia SNOMED Code(s): 82426541 Code(s): E87.5 - HYPERKALEMIA Status: Acute Current Visit: Yes (10) High anion gap metabolic acidosis SNOMED Code(s): 61290266 Code(s): E87.2 - ACIDOSIS Status: Acute Current Visit: Yes (11) Respiratory acidosis SNOMED Code(s): 87450357 Code(s): E87.2 - ACIDOSIS Status: Acute Current Visit: Yes (12) Normal anion gap metabolic acidosis SNOMED Code(s): 888682017 Code(s): E87.2 - ACIDOSIS Status: Acute Current Visit: Yes (13) Hypoxemia SNOMED Code(s): 474535305 Code(s): R09.02 - HYPOXEMIA Status: Acute Current Visit: Yes (14) Acute kidney injury SNOMED Code(s): 17882095, 44970515 Code(s): N17.9 - ACUTE KIDNEY FAILURE, UNSPECIFIED Status: Acute Current Visit: Yes (15) Healthcare-associated pneumonia SNOMED Code(s): 528441968, 669285501 Code(s): J18.9 - PNEUMONIA, UNSPECIFIED ORGANISM Status: Acute Current Visit: Yes (16) Unstageable decubitus ulcer SNOMED Code(s): 378496729 Code(s): L89.95 - PRESSURE ULCER OF UNSPECIFIED SITE, UNSTAGEABLE Status: Acute Current Visit: Yes (17) Ventilator associated pneumonia SNOMED Code(s): 867853097 Code(s): J95.851 - VENTILATOR ASSOCIATED PNEUMONIA Status: Acute Current Visit: Yes (18) Ulcer of toe of left foot SNOMED Code(s): 271281949 Code(s): L97.529 - NON-PRESSURE CHRONIC ULCER OTH PRT LEFT FOOT W UNSP SEVERITY Status: Acute Current Visit: Yes - Problem List Review Problem List Initiated/Reviewed/Updated: Yes - Plan Plan:: ASSESSMENT Day 1 - Recently admitted for a fall with subsequent hip fracture--> discharged to assisted out of which he checked himself out - Currently residing in a house with caregivers - As per sister in law patient was found to be less responsive for which caregivers placed him in car and took him to assisted day care where they were told to call EMS - EMS reported he responded minimally to a sternal rub. Accu-Chek was 79. Initial BP 168/68. SPO2 80% on room air, up to the 90s on 5 L. His pupils were pinpoint. The patient was given 2 mg of IV Narcan, without change in his condition. - On arrival, the patient was receiving oxygen per nasal cannula--> intubated for airway protection. - Junctional rhythm with bradycardia post intubation--> given atropine - Overdose potential is very low, family members state he does not have access to medications where he stays, they are given to him Day 2 - Initially required minimal sedation, this has been off since yesterday in the AM, CPAP trial yesterday was tolerated great--> extubated - There is concern for pneumonia so will order CXR to evaluate - CXR with BL lower lobe infiltrates--> negative lactic acid --> no sepsis Day 3 - Hypoxemia episode overnight that requires increase in oxygen supplementation - -> deep suction resolved it, likely mucous plug - Flu swab, strep pneumonia negative - Respiratory panel + Enterovirus and Rhinovirus - Day 2 of vancomycin, Levaquin and Zosyn - Had some hypoglycemia episodes - Extubated yesterday - Drop in urine output, worsened Day 4 - Urine output increased - BRANDT resolved - Off oxygen supplementation since 10AM - Mildly elevated procalcitonin - MRSA negative --> D/C vancomycin Day 5 - Nursing reported a new wound on the bottom of his second toe of the left foot - Evaluated wound--> it covers the whole plantar surface of that toe, has drainage of serosanguineous fluid, has a foul smell and tunneling--> cultured - Likely a diabetic foot ulcer, no pain or any complaints by patient even when culture swab was inserted in tunnel - Scheduled potassium and magnesium replacement - Consulted occupational therapy - Will need speech therapy upon discharge - Activity as tolerated - Sputum culture should be resulted today - Required oxygen supplementation again, so he is currently on 1L NC - Glucose trend: 166-206 - BP trend: 132-159/62-68--> controlled for age - GFR improving Day 6 - Day 5 of Zosyn and Vancomycin - Foot wound needs coverage for MRSA--> restart Vancomycin - BP trend:145-173/67-100 - Glucose trend: 144-293 - Back on 2L NC - PT/OT recommending SNF with PT/OT - Diet recommendations for mechanical soft Day 7 - MRI reports - Areas of increased signal and enhancement within the 1st metatarsal as well as distal 2nd and 4th metatarsal head suggesting early osteomyelitis - More prominent osteomyelitis within the toes of the 2nd and 3rd digits - Diffuse cellulitis - Wound culture sent and pending - Day 6 of Levaquin and Zosyn - Discontinued Levaquin and vancomycin, started Rocephin - BP trend : 151-173/56-99 - HR trend 62-65 - Tmax 98.8 - SatO2 > 92% on RA - Diet: mechanical soft with magic cup at noon and Ensure and live - Discussed case with Edmundo (brother)- who agrees to send patient to [facility] if needed PLAN BY PROBLEM Healthcare-associated vs. Ventilator associated pneumonia Acute hypoxemic respiratory failure - Continue O2 supplementation - Continue Levaquin and Zosyn day 6 - Follow up on procalcitonin result - DuoNebs q8h - Incentive spirometry - Monitor for fever and panculture if febrile - CPT - Guaifenesin TID - Keep O2 sat >88% Ulcer of toe of left foot - Restart vancomycin - Culture sent - MRI today - Wound care by PT Unstageable decubitus ulcer - Wound care by PT Diabetes mellitus - Continue insulin BID - Accuchecks - Hypoglycemia protocol Hypertension - Monitor - No need for medications at this time Multiple metabolic abnormalities - Increase scheduled magnesium replacement - Scheduled potassium replacement Dementia Malnutrition - Let me sleep protocol - Encourage daytime wakefulness - Speech, occupational and physical therapy upon discharge - Mechanical soft diet - Supplementation with magic cup and ensure Anemia - Monitor daily - Transfuse if drops < 7 Unresponsive on admission, resolved Hypothermia, resolved High anion gap metabolic acidosis Respiratory acidosis Non-gap metabolic acidosis PROPHYLAXIS DVT- SCDs GI- not indicated CODE STATUS: DNR/ DNI DISPOSITION: Patient will remain admitted in medical floor with PT for wound care as well as physical therapy, OT on case as well as speech therapy. [facility] is pending response but [facility] has declined him. Length of stay is longer than 96 hours due to suboptimal response to treatment SOCIAL INFORMATION: Recently admitted and discharged to assisted, but he checked himself out, will get a cognitive evaluation once awake PT/OT ordered and case management/social work consulted for discharge planning. Case was discussed with family members and conversation created a lot of discontent from their part, brother who is 2nd surrogate stated patient would not want to be resuscitated. Advanced directives were revised and patient stated he would not want to be kept alive artificially once his condition is determined to be terminal, that was not case on admission--> code status changed--> further clarified with patient who asked to be DNR/DNI--> changed code status back APS updated
[2019-08-03] MEDS ORDERED: Magnesium Sulfate/Water 4 GM in Premix Bag 1 BAG IV ONE (15:19)
[2019-08-03] MEDS: Sodium Phosphate 30 MMOLE in Sodium Chloride 0.9% 250 ML IV SCH ×2 (15:42→18:48)
[2019-08-03] MEDS: Insulin Lispro 100 Units/ML 3 ML Vial SUBCUT SCH (18:47)
[2019-08-04] MEDS: Piperacillin/Tazobactam 4.5 GM in Sodium Chloride 0.9% 100 ML IV SCH ×2 (03:37→09:41)
[2019-08-04] MEDS: Albuterol/Ipratropium 3.0-0.5 MG/3 ML Neb Soln NEB SCH (06:24)
[2019-08-04] MEDS: Insulin Lispro 100 Units/ML 3 ML Vial SUBCUT SCH ×2 (09:26→16:03)
[2019-08-04] MEDS: guaiFENesin 600 MG Tab.ER PO SCH (09:27)
[2019-08-04] MEDS: Pantoprazole 40 MG Tab.CR PO SCH (09:28)
--- NOTE | 2019-08-04 13:51 | PCM.DCSUM1 ---
Discharge Summary - Hospital Course HPI Initial Comments: Mr. Smith is a 78-year-old gentleman with a past medical history of advanced dementia, who is now brought in by EMS after he was found unresponsive in a vehicle. He responded minimally to a sternal rub. Accu-Chek was 79. Initial BP 168/68. SPO2 80% on room air, up to the 90s on 5 L. His pupils were pinpoint. The patient was given 2 mg of IV Narcan, without change in his condition. On arrival, the patient was receiving oxygen per nasal cannula. A left antecubital fossa IV had been placed. Initial examination, the patient responded minimally to noxious stimuli. The decision was made to intubate the patient for airway protection. The patient was given 40 mg of IV propofol, along with 80 mg of IV succinylcholine. He was then intubated with an 8.0 OETT using a Mac 3 blade, to 24 cm at the incisors. Post intubation, the patient was noted to be bradycardic at 47 bpm. An ECG appears to demonstrate a junctional bradycardia. He was therefore given 1 mg of atropine and started on dopamine at 10 mcg/kg/ min. Review of medical records finds that the patient fell and suffered a left iliac wing fracture on 06/11/2019. He was admitted to this hospital, then subsequently admitted to a [facility]. What happened after that, we do not know. Diagnosis: Stroke: No - Discharge Data Discharge Date: 08/04/19 Discharge Disposition: DC/Tfer to Acute Hospital 02 Condition: Good - Referral to Home Health Primary Care Physician: Michel Gonzalez MD - Discharge Diagnosis/Problem(s) (1) Unresponsive SNOMED Code(s): 034546138 ICD Code: R41.89 - [facility] SYMPTOMS AND SIGNS W COGNITIVE FUNCTIONS AND AWARENESS Status: Acute Current Visit: Yes (2) Hypomagnesemia SNOMED Code(s): 013239114 ICD Code: E83.42 - HYPOMAGNESEMIA Status: Acute Current Visit: Yes (3) COPD (chronic obstructive pulmonary disease) SNOMED Code(s): 08711764 ICD Code: J44.9 - CHRONIC OBSTRUCTIVE PULMONARY DISEASE, UNSPECIFIED Status : Chronic Priority: Medium Current Visit: No Qualifiers: COPD type: unspecified COPD Qualified Code(s): J44.9 - Chronic obstructive pulmonary disease, unspecified (4) Dementia SNOMED Code(s): 84647478 ICD Code: F03.90 - UNSPECIFIED DEMENTIA WITHOUT BEHAVIORAL DISTURBANCE Status: Chronic Priority: Medium Current Visit: No Qualifiers: Dementia type: unspecified type Dementia behavioral disturbance: without behavioral disturbance Qualified Code(s): F03.90 - Unspecified dementia without behavioral disturbance (5) Diabetes mellitus SNOMED Code(s): 72790582 ICD Code: E11.9 - TYPE 2 DIABETES MELLITUS WITHOUT COMPLICATIONS Status: Chronic Priority: Medium Current Visit: No Qualifiers: Diabetes mellitus type: other specified (including CESAR) Diabetes mellitus [facility] insulin use: unspecified exterminator helper insulin use status Diabetes mellitus complication status: with other specified complication Qualified Code (s): E13.69 - Other specified diabetes mellitus with other specified complication (6) Hypertension SNOMED Code(s): 29703860 ICD Code: I10 - ESSENTIAL (PRIMARY) HYPERTENSION Status: Chronic Priority : Low Current Visit: No Qualifiers: Hypertension type: unspecified Qualified Code(s): I10 - Essential (primary ) hypertension (7) Anemia SNOMED Code(s): 925884881 ICD Code: D64.9 - ANEMIA, UNSPECIFIED Status: Acute Current Visit: Yes (8) Hypothermia SNOMED Code(s): 550035301 ICD Code: T68.XXXA - HYPOTHERMIA, INITIAL ENCOUNTER Status: Acute Current Visit: Yes (9) Hyperkalemia SNOMED Code(s): 88554765 ICD Code: E87.5 - HYPERKALEMIA Status: Acute Current Visit: Yes (10) High anion gap metabolic acidosis SNOMED Code(s): 34891276 ICD Code: E87.2 - ACIDOSIS Status: Acute Current Visit: Yes (11) Respiratory acidosis SNOMED Code(s): 56721082 ICD Code: E87.2 - ACIDOSIS Status: Acute Current Visit: Yes (12) Normal anion gap metabolic acidosis SNOMED Code(s): 816450950 ICD Code: E87.2 - ACIDOSIS Status: Acute Current Visit: Yes (13) Hypoxemia SNOMED Code(s): 452112547 ICD Code: R09.02 - HYPOXEMIA Status: Acute Current Visit: Yes (14) Acute kidney injury SNOMED Code(s): 88603976, 72073203 ICD Code: N17.9 - ACUTE KIDNEY FAILURE, UNSPECIFIED Status: Acute Current Visit: Yes (15) Healthcare-associated pneumonia SNOMED Code(s): 499768174, 026526826 ICD Code: J18.9 - PNEUMONIA, UNSPECIFIED ORGANISM Status: Acute Current Visit: Yes (16) Unstageable decubitus ulcer SNOMED Code(s): 269025058 ICD Code: L89.95 - PRESSURE ULCER OF UNSPECIFIED SITE, UNSTAGEABLE Status: Acute Current Visit: Yes (17) Ventilator associated pneumonia SNOMED Code(s): 728374180 ICD Code: J95.851 - VENTILATOR ASSOCIATED PNEUMONIA Status: Acute Current Visit: Yes (18) Ulcer of toe of left foot SNOMED Code(s): 162528158 ICD Code: L97.529 - NON-PRESSURE CHRONIC ULCER OTH PRT LEFT FOOT W UNSP SEVERITY Status: Acute Current Visit: Yes - Patient Summary/Data Consults: Consultations 07/27/19 17:34 Consult to Police Academy Instructor [CONS] Routine PT Evaluation and Treatment [CONS] Routine 07/31/19 09:51 Consult to Speech Language Pathology [INVESTMENT BANKING MANAGER Evaluation and Treatment] [CONS] Routine 08/01/19 11:11 Consult to Physical Therapy [PT Evaluation and Treatment] [CONS] Routine 08/01/19 11:55 INVESTMENT BANKING MANAGER Eval and Treat [INVESTMENT BANKING MANAGER Evaluation and Treatment] [CONS] Routine 08/01/19 11:56 Consult to Occupational Therapy [OT Evaluation and Treatment] [CONS] Routine Hospital Course: Day 1 - Recently admitted for a fall with subsequent hip fracture--> discharged to [facility] out of which he checked himself out - Currently residing in a house with caregivers - As per sister in law patient was found to be less responsive for which caregivers placed him in car and took him to [facility] day care where they were told to call EMS - EMS reported he responded minimally to a sternal rub. Accu-Chek was 79. Initial BP 168/68. SPO2 80% on room air, up to the 90s on 5 L. His pupils were pinpoint. The patient was given 2 mg of IV Narcan, without change in his condition. - On arrival, the patient was receiving oxygen per nasal cannula--> intubated for airway protection. - Junctional rhythm with bradycardia post intubation--> given atropine - Overdose potential is very low, family members state he does not have access to medications where he stays, they are given to him Day 2 - Initially required minimal sedation, this has been off since yesterday in the AM, CPAP trial yesterday was tolerated great--> extubated - There is concern for pneumonia so will order CXR to evaluate - CXR with BL lower lobe infiltrates--> negative lactic acid --> no sepsis Day 3 - Hypoxemia episode overnight that requires increase in oxygen supplementation - -> deep suction resolved it, likely mucous plug - Flu swab, strep pneumonia negative - Respiratory panel + Enterovirus and Rhinovirus - Day 2 of vancomycin, Levaquin and Zosyn - Had some hypoglycemia episodes - Extubated yesterday - Drop in urine output, worsened Day 4 - Urine output increased - BRANDT resolved - Off oxygen supplementation since 10AM - Mildly elevated procalcitonin - MRSA negative --> D/C vancomycin Day 5 - Nursing reported a new wound on the bottom of his second toe of the left foot - Evaluated wound--> it covers the whole plantar surface of that toe, has drainage of serosanguineous fluid, has a foul smell and tunneling--> cultured - Likely a diabetic foot ulcer, no pain or any complaints by patient even when culture swab was inserted in tunnel - Scheduled potassium and magnesium replacement - Consulted occupational therapy - Will need speech therapy upon discharge - Activity as tolerated - Sputum culture should be resulted today - Required oxygen supplementation again, so he is currently on 1L NC - Glucose trend: 166-206 - BP trend: 132-159/62-68--> controlled for age - GFR improving Day 6 - Day 5 of Zosyn and Vancomycin - Foot wound needs coverage for MRSA--> restart Vancomycin - BP trend:145-173/67-100 - Glucose trend: 144-293 - Back on 2L NC - PT/OT recommending SNF with PT/OT - Diet recommendations for mechanical soft Day 7 - MRI reports - Areas of increased signal and enhancement within the 1st metatarsal as well as distal 2nd and 4th metatarsal head suggesting early osteomyelitis - More prominent osteomyelitis within the toes of the 2nd and 3rd digits - Diffuse cellulitis - Wound culture sent and pending - Day 6 of Levaquin and Zosyn - Discontinued Levaquin and vancomycin, started Rocephin - BP trend : 151-173/56-99 - HR trend 62-65 - Tmax 98.8 - SatO2 > 92% on RA - Diet: mechanical soft with magic cup at noon and Ensure and live - Discussed case with Edmundo (brother)- who agrees to send patient to [place] if needed Day 8 - Cultures positive for MSSA - Vancomycin discontinued - Started on Rocephin - Day 7 of Zosyn - Completed 6 days of Levaquin and Vancomycin - Case discussed with hospitalist in [place] who accepted care of patient. - Discharge Plan *PRESCRIPTION DRUG MONITORING PROGRAM REVIEWED*: Not Applicable *COPY OF PRESCRIPTION DRUG MONITORING REPORT IN PATIENT KAITY: Not Applicable Home Medications: Home Meds Aspirin [Ecotrin EC] 81 mg PO DAILY 05/06/19 [History] Donepezil HCl [Aricept] 10 mg PO QPM 05/06/19 [History] Levothyroxine [Synthroid] 50 mcg PO DAILY 05/06/19 [History] Midodrine 2.5 mg PO QPM 05/06/19 [History] Mirtazapine 15 mg PO QPM 05/06/19 [History] Multivit-Min/FA/Lycopen/Lutein [Centrum Silver Ultra Men's] 1 tab PO DAILY 05/06 [History] QUEtiapine [SEROquel] 50 mg PO QPM 05/06/19 [History] carBAMazepine [Carbamazepine] 200 mg PO BID 05/06/19 [History] Pantoprazole Sodium 40 mg PO BID #60 tablet. 05/08/19 [Rx] carvediloL [Coreg] 3.125 mg PO DAILY #30 tablet 05/08/19 [Rx] Acetaminophen/Diphenhydramine [Tylenol Pm Ex-Strength Caplet] 25 - 500 mg PO BEDTIME PRN 06/11/19 [History] Cholestyramine/Sucrose [Cholestyramine] 4 gram PO DAILY 06/11/19 [History] Acetaminophen [Tylenol] 650 mg PO Q4H PRN #40 tablet 06/14/19 [Rx] LORazepam [Ativan] 0.5 mg PO BEDTIME 07/28/19 [History] LORazepam [Ativan] 0.5 mg PO Q6HR PRN 07/28/19 [History] Patient Handouts: Bone and Joint Infections, Adult, Sepsis, Adult Forms: ED Department Discharge Referrals: Michel Gonzalez MD [Primary Care Provider] - - Discharge Summary/Plan Comment DC Time >30 min.: Yes Discharge Summary/Plan Comment: Care accepted at [facility] by Dr. Logan - General Info Date of Service: 08/04/19 Subjective Update: Feeling ok Tolerating diet BM today - Patient Data Vitals - Most Recent: Last Vital Signs Temp 98.4 F 08/04/19 09:03 Pulse 66 08/04/19 09:03 Resp 16 08/04/19 09:03 BP 148/64 H 08/04/19 09:03 Pulse Ox 92 L 08/04/19 09:03 Weight - Most Recent: 68.356 kg - Exam Physical Findings Comments:: General: Alert, Cooperative, No Acute Distress. No: Oriented HEENT: Pupils Equal, Pupils Reactive, EOMI, Mucous Membr. Moist/[place] Neck: Supple, Trachea Midline, No JVD, No Thyromegaly, +2 Carotid Pulse wo Bruit. No: Lymphadenopathy Lungs: Decreased Breath Sounds, Crackles. No: Rales, Rhonchi, Rub, Stridor, Wheezing Cardiovascular: Regular Rate, Regular Rhythm. No: Murmurs, Gallops, Rubs GI/Abdominal Exam: Normal Bowel Sounds, Soft, Non-Tender. No: Distended, Guarding, Rigid, Rebound Back Exam: Normal Inspection. No: CVA Tenderness (L), CVA Tenderness (R), Paraspinal Tenderness, Vertebral Tenderness Extremities: Other (2nd toe on left foot with tunneling ulcer with fibrin and foul smell on plantar side ) Discharge Operative/Procedures - Procedures Performed Intubation Indication: Airway Protection CL Indication: hemodynamic monitoring, medication administration
[2019-08-04] MEDS: Levofloxacin/Dextrose 5%-Water 750 MG in Premix Bag 1 BAG IV SCH (14:34)
[2019-08-05] MEDS ORDERED: cefTRIAXone 2 GM in Sodium Chloride 0.9% 100 ML IV SCH (02:00)
== END 2019-08-04 15:29 | DRG 922 ==
LOC: JD.ED 10:32 → JD.ICU 16:52 → JD.MS 07-31 20:48
PROVIDERS: ADMIT Internal Medicine; ATTEND Internal Medicine
PROC: 0BH17EZ Insertion of Endotracheal Airway into Trachea, Via Natural or Artificial Opening (ICD-10-PCS; principal; 2019-07-27)
PROC: 5A1945Z Respiratory Ventilation, 24-96 Consecutive Hours (ICD-10-PCS; 2019-07-27)
PROC: 02HV33Z Insertion of Infusion Device into Superior Vena Cava, Percutaneous Approach (ICD-10-PCS; 2019-07-27)
PROC: B548ZZA Ultrasonography of Superior Vena Cava, Guidance (ICD-10-PCS; 2019-07-27)
DX: T68.XXXA Hypothermia, initial encounter (principal); J96.01 Acute respiratory failure with hypoxia; R41.82 Altered mental status, unspecified; J95.851 Ventilator associated pneumonia; N17.9 Acute kidney failure, unspecified; M86.9 Osteomyelitis, unspecified; L03.116 Cellulitis of left lower limb; Z66 Do not resuscitate; R41.89 Other symptoms and signs involving cognitive functions and awareness; E83.42 Hypomagnesemia; R00.1 Bradycardia, unspecified; E87.4 Mixed disorder of acid-base balance; D64.9 Anemia, unspecified; E87.5 Hyperkalemia; L89.95 Pressure ulcer of unspecified site, unstageable; E11.621 Type 2 diabetes mellitus with foot ulcer; L97.529 Non-pressure chronic ulcer of other part of left foot with unspecified severity; B95.61 Methicillin susceptible Staphylococcus aureus infection as the cause of diseases classified elsewhere; I11.0 Hypertensive heart disease with heart failure; H54.7 Unspecified visual loss; E78.00 Pure hypercholesterolemia, unspecified; I50.9 Heart failure, unspecified; J44.9 Chronic obstructive pulmonary disease, unspecified; E11.9 Type 2 diabetes mellitus without complications; E03.9 Hypothyroidism, unspecified; F03.90 Unspecified dementia, unspecified severity, without behavioral disturbance, psychotic disturbance, mood disturbance, and anxiety; Z98.42 Cataract extraction status, left eye; Z98.41 Cataract extraction status, right eye; Z89.412 Acquired absence of left great toe; Z86.14 Personal history of Methicillin resistant Staphylococcus aureus infection; Z79.82 Long term (current) use of aspirin; Z79.890 Hormone replacement therapy; Z79.899 Other long term (current) drug therapy
CPT/HCPCS: 31500; 36415; 36556; 36600 ×2; 43752; 51702; 70450; 71045; 71275; 73501; 80053; 80306; 80307 ×3; 81001; 82803 ×2; 83605; 83735; 84484; 85007; 85027; 85379; 85610; 85730; 87040 ×2; 93005; 96365; 96366; 96368; 96375; 99285; J0330; J0461; J1265 ×2; J2704 ×3; J3010; J3475; J7030; J7050; Q9967; 36430; 73720-26-LT; 73720-LT; 80048; 82962; 84100; 85025; 86738; 86850; 86900; 86901; 86922; 87070; 87077; 87186; 87205; 87486; 87581; 87632; 87641; 87798; 87804; 87899; 92523-GN; 92610-GN; 93010; 94002; 94003; 94640; 94760; 94761; 97110-GP; 97116-GP; 97140-GP; 97162-GP; 97167-GO; 97530-GP; 97535-GO; 97597-GP; A9270-GY; A9577; C9113; J0610; J1650; J1815-GY; J1940; J1956; J2543; J3370; J3480; J7060; J7120; J7121; J7620-GY; P9016

== ENCOUNTER 2019-08-06 18:20 | Inpatient (IN) | payer MEDICARE, OTHER ==
[2019-08-06] MEDS ORDERED: Acetaminophen/Codeine 300-30 MG Tab PO PRN (19:46)
[2019-08-06] MEDS ORDERED: Acetaminophen 325 MG Tab PO PRN (19:46)
[2019-08-06] MEDS ORDERED: Morphine 2 MG/ML Syringe IVPUSH PRN (19:46)
[2019-08-06] MEDS ORDERED: Ondansetron 4 MG Tab.DIS PO PRN (19:53)
[2019-08-06] MEDS ORDERED: Ondansetron 4 MG/2 ML SDV IV PRN (19:53)
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
[2019-08-07] MEDS ORDERED: Magnesium Sulfate/Water 4 GM in Premix Bag 1 BAG IV ONE (08:03)
[2019-08-07] MEDS: cefTRIAXone 2 GM in Sodium Chloride 0.9% 100 ML IV SCH (08:54)
[2019-08-07] MEDS: carBAMazepine 200 MG Tab PO SCH ×2 (08:57→20:24)
[2019-08-07] MEDS: Levothyroxine 50 MCG Tab PO SCH (08:57)
[2019-08-07] MEDS: Carvedilol 3.125 MG Tab PO SCH (08:58)
[2019-08-07] MEDS: Aspirin 81 MG Tab.EC PO SCH (08:58)
[2019-08-07] MEDS: Pantoprazole 40 MG Tab.CR PO SCH ×2 (08:58→20:24)
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
--- NOTE | 2019-08-07 16:22 | CT ---
Head CT Technique: Multiple axial sections through the brain were obtained. Intravenous contrast was not utilized. Comparison: Previous head CT study of 07/27/19. Findings: Ventricles along with basal cisterns and sulci over the convexities are moderately prominent. Very mild diminished density is noted within the periventricular white matter compatible with small vessel ischemic demyelination change. No other abnormal parenchymal densities are seen. No evidence of intracranial hemorrhage. No midline shift or mass effect is seen. Bone window settings were reviewed. No acute calvarial abnormality is seen. Visualized mastoid sinuses are clear. Mild mucosal thickening is seen within the ethmoid sinuses which has occurred in the interim from previous exam. Impression: 1. Mild sinus disease which has occurred in the interim from prior head CT study. 2. Senescent change as noted above. 3. No acute intracranial abnormality is appreciated. Diagnostic code #2 Study was dictated in MDT
--- NOTE | 2019-08-07 16:22 | CR ---
Left hip: AP and frog-leg lateral views of the left hip were obtained. Comparison: Previous pelvis and left hip study of 07/27/19. Partially visualized left iliac wing fracture is again noted. Bony structures are osteopenic. Extensive vascular calcification is noted. No acute fracture or dislocation is seen. Impression: 1. Stable findings as noted above. 2. Nothing acute is seen on 2 view left hip exam. Diagnostic code #2 Study was dictated in MDT
--- NOTE | 2019-08-07 16:22 | CR ---
Right hip: AP and frog-leg lateral views of the right hip were obtained. Comparison: Previous AP pelvis study of 07/27/19. Mild joint space narrowing is seen. Osteopenia is noted. Vascular calcification is seen. No acute fracture or other abnormality is appreciated. Impression: 1. Stable findings. 2. Nothing acute is seen on 2 view right hip exam. Diagnostic code #2 Study was dictated in MDT
--- NOTE | 2019-08-07 16:22 | CR ---
Left shoulder: 3 views left shoulder were obtained. Comparison: No prior shoulder study. Joint space narrowing is seen within the acromioclavicular joint. Glenohumeral joint appears within normal limits. No fracture, dislocation or other bony abnormality is seen. Osteopenia is noted. Impression: 1. Mild degenerative change and osteopenia. 2. Nothing acute is appreciated on left shoulder study. Diagnostic code #2 Study was dictated in MDT
[2019-08-07] MEDS: Midodrine 5 MG Tab PO SCH (17:26)
[2019-08-07] MEDS: Donepezil 10 MG Tab PO SCH (17:27)
[2019-08-07] MEDS ORDERED: QUEtiapine 25 MG Tab PO SCH (18:00)
[2019-08-07] MEDS ORDERED: Mirtazapine 15 MG Tab PO SCH (18:00)
[2019-08-08] MEDS: Pantoprazole 40 MG Tab.CR PO SCH ×2 (08:13→20:47)
[2019-08-08] MEDS: Levothyroxine 50 MCG Tab PO SCH (08:14)
[2019-08-08] MEDS: Carvedilol 3.125 MG Tab PO SCH (08:14)
[2019-08-08] MEDS: carBAMazepine 200 MG Tab PO SCH ×2 (08:14→20:47)
[2019-08-08] MEDS: cefTRIAXone 2 GM in Sodium Chloride 0.9% 100 ML IV SCH (08:15)
[2019-08-08] MEDS: Aspirin 81 MG Tab.EC PO SCH (08:15)
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
[2019-08-08] MEDS: Midodrine 5 MG Tab PO SCH (18:04)
[2019-08-08] MEDS: Donepezil 10 MG Tab PO SCH (18:04)
[2019-08-08] MEDS: QUEtiapine 25 MG Tab PO SCH (20:46)
[2019-08-08] MEDS: Mirtazapine 15 MG Tab PO SCH (20:47)
[2019-08-09] MEDS ORDERED: Magnesium Sulfate/Water 4 GM in Premix Bag 1 BAG IV ONE (08:06)
[2019-08-09] MEDS: cefTRIAXone 2 GM in Sodium Chloride 0.9% 100 ML IV SCH (08:24)
[2019-08-09] MEDS: Pantoprazole 40 MG Tab.CR PO SCH ×2 (08:28→21:55)
[2019-08-09] MEDS: Levothyroxine 50 MCG Tab PO SCH (08:28)
[2019-08-09] MEDS: Carvedilol 3.125 MG Tab PO SCH (08:28)
[2019-08-09] MEDS: carBAMazepine 200 MG Tab PO SCH ×2 (08:29→21:55)
[2019-08-09] MEDS: Aspirin 81 MG Tab.EC PO SCH (08:29)
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
[2019-08-09] MEDS: Donepezil 10 MG Tab PO SCH (17:49)
[2019-08-09] MEDS: Midodrine 5 MG Tab PO SCH (17:49)
[2019-08-09] MEDS: QUEtiapine 25 MG Tab PO SCH (21:54)
[2019-08-09] MEDS: Mirtazapine 15 MG Tab PO SCH (21:55)
[2019-08-10] MEDS: cefTRIAXone 2 GM in Sodium Chloride 0.9% 100 ML IV SCH (07:53)
[2019-08-10] MEDS: Levothyroxine 50 MCG Tab PO SCH (08:01)
[2019-08-10] MEDS: Carvedilol 3.125 MG Tab PO SCH (08:01)
[2019-08-10] MEDS: Pantoprazole 40 MG Tab.CR PO SCH (08:02)
[2019-08-10] MEDS: Aspirin 81 MG Tab.EC PO SCH (08:02)
[2019-08-10] MEDS: carBAMazepine 200 MG Tab PO SCH (08:02)
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
== END 2019-08-10 15:05 | DRG 638 ==
LOC: JD.MS 18:20 → OBSVTOIN 19:47
PROVIDERS: ADMIT Internal Medicine; ATTEND Internal Medicine
DX: E11.69 Type 2 diabetes mellitus with other specified complication (principal); S32.302A Unspecified fracture of left ilium, initial encounter for closed fracture; M86.672 Other chronic osteomyelitis, left ankle and foot; E46 Unspecified protein-calorie malnutrition; T76.01XA Adult neglect or abandonment, suspected, initial encounter; Z68.1 Body mass index [BMI] 19.9 or less, adult; B95.61 Methicillin susceptible Staphylococcus aureus infection as the cause of diseases classified elsewhere; Z66 Do not resuscitate; E11.621 Type 2 diabetes mellitus with foot ulcer; L97.509 Non-pressure chronic ulcer of other part of unspecified foot with unspecified severity; E87.5 Hyperkalemia; I95.1 Orthostatic hypotension; F03.90 Unspecified dementia, unspecified severity, without behavioral disturbance, psychotic disturbance, mood disturbance, and anxiety; E11.42 Type 2 diabetes mellitus with diabetic polyneuropathy; E78.5 Hyperlipidemia, unspecified; D64.9 Anemia, unspecified; J44.9 Chronic obstructive pulmonary disease, unspecified; I73.9 Peripheral vascular disease, unspecified; L89.300 Pressure ulcer of unspecified buttock, unstageable; E03.9 Hypothyroidism, unspecified; E83.42 Hypomagnesemia; L97.524 Non-pressure chronic ulcer of other part of left foot with necrosis of bone; I50.9 Heart failure, unspecified; Z79.82 Long term (current) use of aspirin; Z87.891 Personal history of nicotine dependence; Z87.19 Personal history of other diseases of the digestive system; Z79.890 Hormone replacement therapy; Z79.899 Other long term (current) drug therapy
CPT/HCPCS: 36415; 70450; 70450-26; 73030-26-LT; 73030-LT; 73502-26-LT; 73502-26-RT; 73502-LT; 73502-RT; 80048; 82962; 83735; 84100; 85025; 85652; 92523-GN; 92610-GN; 94760; 97110-GO; 97110-GP; 97162-GP; 97167-GO; 97530-GO; 97530-GP; 97535-GO; 97597-GP; A9270-GY; J0696; J3475; J7050